=== PATIENT | female | born 1940 | race Caucasian/White ===

== ENCOUNTER 2023-10-02 10:43 | Outpatient (RCR) | payer MEDICARE, SELFPAY ==
[2023-09-04 11:05] VITALS: BP 119/55
[2023-09-04 11:34] VITALS: BP 119/55
[2023-09-04 11:54] VITALS: BP 126/63
[2023-09-04] MEDS: LASIX 20 MG IV (14:12)
[2023-09-04 14:26] VITALS: BP 134/50
[2023-09-08 11:51] LABS: % Basophils 0.2 % (0-2); % Immature Granulocytes 0.5 % (0-0.5); % Lymphocytes 15.5 % (20.5-51.1); % Monocytes 8.2 % (1.7-9.3); % Neutrophils 73.6 % (42.2-75.2); Absolute Eosinophils 0.1 10^3/uL (0-0.7); Absolute Lymphocytes 0.6 10^3/uL (1.2-3.4); Absolute Monocytes 0.3 10^3/uL (0.1-0.6); Hematocrit 27.9 % (37.0-47.0); Hemoglobin 8.4 g/dL (12.0-16.0); Mean Corp Hgb Conc. 30.1 g/dL (33.0-37.0); Mean Corpuscular Hgb 27.1 pg (27.0-31.0); Mean Platelet Volume 10.9 fL (7.4-10.4); Nucleated Red Blood Cells % 0 %; Platelet Count 136 10^3/uL (130-400); Red Cell Dist. Width 17.7 % (11.5-14.5)
[2023-09-18 09:54] VITALS: BP 131/67
[2023-09-18 09:55] VITALS: BP 131/67
[2023-09-18 10:16] VITALS: BP 139/61
[2023-09-18 12:21] VITALS: BP 122/63
[2023-09-18] MEDS: LASIX 20 MG IV (12:28)
[2023-09-25] MEDS: TYLENOL 650 MG PO (10:25)
[2023-09-25 10:27] VITALS: BP 143/65
[2023-09-25 10:57] VITALS: BP 143/65
[2023-09-25 11:14] VITALS: BP 133/77
[2023-09-25 13:54] VITALS: BP 124/72
[2023-09-25] MEDS: LASIX 20 MG IV (13:55)
[2023-10-02 11:31] VITALS: BP 131/56
[2023-10-02 11:49] VITALS: BP 128/56
[2023-10-02 13:45] VITALS: BP 108/53
[2023-10-02] MEDS: LASIX 20 MG IV (13:47)
== END 2023-10-02 23:59 | disposition home or self-care (01) ==
LOC: OID 10:43
PROVIDERS: ATTENDING PHYSICIAN Internal Medicine Hematology & Oncology; FAMILY PHYSICIAN Nurse Practitioner Family
DX: D50.0 Iron deficiency anemia secondary to blood loss (chronic) (principal); D50.9 Iron deficiency anemia, unspecified; Z79.01 Long term (current) use of anticoagulants; T45.4X5A Adverse effect of iron and its compounds, initial encounter; Y93.89 Activity, other specified; K31.811 Angiodysplasia of stomach and duodenum with bleeding; D59.0 Drug-induced autoimmune hemolytic anemia
CPT/HCPCS: 36415; 36430; 85025; 86850; 86900; 86901; 86920; 96374; 96375; P9016

== ENCOUNTER 2023-10-30 09:11 | Outpatient (RCR) | payer MEDICARE, SELFPAY ==
[2023-10-08 09:46] LABS: % Basophils 0.3 % (0-2); % Eosinophils 2.3 % (0-6); % Immature Granulocytes 0.3 % (0-0.5); % Lymphocytes 11.5 % (20.5-51.1); % Monocytes 8.4 % (1.7-9.3); % Neutrophils 77.2 % (42.2-75.2); Absolute Eosinophils 0.1 10^3/uL (0-0.7); Absolute Lymphocytes 0.4 10^3/uL (1.2-3.4); Absolute Monocytes 0.3 10^3/uL (0.1-0.6); Absolute Neutrophils 2.7 10^3/uL (1.4-6.5); Hematocrit 28.8 % (37.0-47.0); Hemoglobin 8.6 g/dL (12.0-16.0); Mean Corp Hgb Conc. 29.9 g/dL (33.0-37.0); Mean Corpuscular Hgb 27.5 pg (27.0-31.0); Mean Platelet Volume 10.2 fL (7.4-10.4); Platelet Count 130 10^3/uL (130-400); Red Blood Cell Count 3.13 10^6/uL (4.20-5.40); Red Cell Dist. Width 16.8 % (11.5-14.5); White Blood Cell Count 3.5 10^3/uL (4.8-10.8)
[2023-10-08 10:42] LABS: Iron 33 ug/dl (37-170)
[2023-10-08 10:51] LABS: Percent Saturation 8 % (20-50); Total Iron Binding Capacity 387 ug/dl (265-497)
[2023-10-08 10:57] LABS: Ferritin 17.2 ng/ml (11.1-264.0)
[2023-10-16 09:30] VITALS: BP 125/49
[2023-10-16 10:12] VITALS: BP 125/49
[2023-10-16 10:28] VITALS: BP 121/50
[2023-10-16 12:32] VITALS: BP 123/49
[2023-10-16] MEDS: LASIX 20 MG IV (12:34)
[2023-10-20 14:16] LABS: % Basophils 0.2 % (0-2); % Eosinophils 1.4 % (0-6); % Immature Granulocytes 0.4 % (0-0.5); % Lymphocytes 15.9 % (20.5-51.1); % Monocytes 8.3 % (1.7-9.3); % Neutrophils 73.8 % (42.2-75.2); Absolute Eosinophils 0.1 10^3/uL (0-0.7); Absolute Lymphocytes 0.8 10^3/uL (1.2-3.4); Absolute Monocytes 0.4 10^3/uL (0.1-0.6); Absolute Neutrophils 3.6 10^3/uL (1.4-6.5); Hematocrit 26.4 % (37.0-47.0); Hemoglobin 7.9 g/dL (12.0-16.0); Mean Corp Hgb Conc. 29.9 g/dL (33.0-37.0); Mean Corpuscular Hgb 26.2 pg (27.0-31.0); Mean Corpuscular Volume 87.7 fL (81.0-99.0); Nucleated Red Blood Cells % 0 %; Platelet Count 125 10^3/uL (130-400); Red Blood Cell Count 3.01 10^6/uL (4.20-5.40); Red Cell Dist. Width 16.9 % (11.5-14.5); White Blood Cell Count 4.9 10^3/uL (4.8-10.8)
[2023-10-30 10:18] VITALS: BP 130/52
[2023-10-30 10:36] VITALS: BP 126/54
[2023-10-30] MEDS: LASIX 20 MG IV (12:29)
[2023-10-30 12:35] VITALS: BP 142/96
== END 2023-10-31 08:38 | disposition home or self-care (01) ==
LOC: OID 09:11
PROVIDERS: ATTENDING PHYSICIAN Internal Medicine Hematology & Oncology; FAMILY PHYSICIAN Nurse Practitioner Family
DX: D50.0 Iron deficiency anemia secondary to blood loss (chronic) (principal); D50.9 Iron deficiency anemia, unspecified; Z79.01 Long term (current) use of anticoagulants; T45.4X5A Adverse effect of iron and its compounds, initial encounter; K31.811 Angiodysplasia of stomach and duodenum with bleeding; Y93.89 Activity, other specified; D59.0 Drug-induced autoimmune hemolytic anemia
CPT/HCPCS: 36415 ×2; 36430; 82728; 83540; 83550; 85025; 86850; 86900; 86901; 86920; 96374; P9016

== ENCOUNTER → 2023-11-03 15:48 | Outpatient (REF) | payer MEDICARE, SELFPAY ==
[2023-11-03 11:25] LABS: % Basophils 0.2 % (0-2); % Eosinophils 0.8 % (0-6); % Immature Granulocytes 0.4 % (0-0.5); % Lymphocytes 14.4 % (20.5-51.1); % Monocytes 10.8 % (1.7-9.3); % Neutrophils 73.4 % (42.2-75.2); Absolute Lymphocytes 0.7 10^3/uL (1.2-3.4); Absolute Monocytes 0.5 10^3/uL (0.1-0.6); Absolute Neutrophils 3.7 10^3/uL (1.4-6.5); Hematocrit 29.9 % (37.0-47.0); Hemoglobin 8.9 g/dL (12.0-16.0); Mean Corp Hgb Conc. 29.8 g/dL (33.0-37.0); Mean Corpuscular Hgb 26.2 pg (27.0-31.0); Mean Corpuscular Volume 87.9 fL (81.0-99.0); Mean Platelet Volume 11.5 fL (7.4-10.4); Nucleated Red Blood Cells % 0 %; Platelet Count 149 10^3/uL (130-400); Red Cell Dist. Width 18.6 % (11.5-14.5)
== END ==
LOC: OIDL 15:48
PROVIDERS: ATTENDING PHYSICIAN Internal Medicine Hematology & Oncology
DX: D50.0 Iron deficiency anemia secondary to blood loss (chronic) (principal)
CPT/HCPCS: 85025

== ENCOUNTER 2023-11-27 09:21 | Outpatient (RCR) | payer MEDICARE, SELFPAY ==
[2023-11-10 12:32] LABS: % Basophils 0.4 % (0-2); % Eosinophils 0.9 % (0-6); % Immature Granulocytes 0.2 % (0-0.5); % Lymphocytes 17.6 % (20.5-51.1); % Monocytes 9.9 % (1.7-9.3); Absolute Lymphocytes 0.8 10^3/uL (1.2-3.4); Absolute Monocytes 0.5 10^3/uL (0.1-0.6); Absolute Neutrophils 3.2 10^3/uL (1.4-6.5); Hematocrit 30.6 % (37.0-47.0); Hemoglobin 9.1 g/dL (12.0-16.0); Mean Corp Hgb Conc. 29.7 g/dL (33.0-37.0); Mean Corpuscular Hgb 27.7 pg (27.0-31.0); Mean Platelet Volume 10.7 fL (7.4-10.4); Nucleated Red Blood Cells % 0 %; Platelet Count 120 10^3/uL (130-400); Red Blood Cell Count 3.29 10^6/uL (4.20-5.40); Red Cell Dist. Width 21.2 % (11.5-14.5); White Blood Cell Count 4.5 10^3/uL (4.8-10.8)
[2023-11-10 12:39] LABS: Phosphorus 2.6 mg/dl (2.5-4.5)
[2023-11-20 10:05] VITALS: BP 115/77
[2023-11-20] MEDS: TYLENOL 650 MG PO (10:39)
[2023-11-20 10:50] VITALS: BP 115/77
[2023-11-20 11:08] VITALS: BP 114/57
[2023-11-20 12:52] VITALS: BP 119/56
[2023-11-20] MEDS: LASIX 20 MG IV (12:56)
[2023-11-27 09:40] VITALS: BP 96/69
[2023-11-27 10:07] VITALS: BP 96/69
[2023-11-27 10:24] VITALS: BP 105/78
--- NOTE | 2023-11-27 12:26 | PTCARENOTE ---
late entry 1024: 15 minute vs taken for blood transfusion, pt vs: 105/78, rr: 18, p: 133, t: 98.3, 100% o2 4l nc (pt on 4l o2 at home); Pt denies any symptoms, no shortness of breath, no chest pain. Apical heart rate was 134 and regular. Pt
otherwise comfortable offering no complaints, sitting up in chair. Heide N.P. in to assess pt per this RN reqest.
TT sent at 1107 by TECHNICAL WRITING LEAD/MGR to [facility] TECHNICAL WRITING LEAD/MGR and MD, with no response.
RR called at 1123, made pt and pt's daughter (via phone) aware. VS: 138/81, 131, 99% o2 4l , 18, denies any complaints.
1130: RR at bedside, pt transported to ER with blood transfusing via wheelchair with staff. BB notified to send pink paper to ER for documentation.
[2023-11-27 12:49] VITALS: BP 122/84
[2023-12-01 09:44] LABS: % Basophils 0.5 % (0-2); % Eosinophils 2.1 % (0-6); % Immature Granulocytes 0.5 % (0-0.5); % Lymphocytes 18.1 % (20.5-51.1); % Monocytes 8.9 % (1.7-9.3); % Neutrophils 69.9 % (42.2-75.2); Absolute Eosinophils 0.1 10^3/uL (0-0.7); Absolute Lymphocytes 0.8 10^3/uL (1.2-3.4); Absolute Monocytes 0.4 10^3/uL (0.1-0.6); Absolute Neutrophils 3.1 10^3/uL (1.4-6.5); Hematocrit 27.5 % (37.0-47.0); Hemoglobin 8.3 g/dL (12.0-16.0); Mean Corp Hgb Conc. 30.2 g/dL (33.0-37.0); Mean Corpuscular Hgb 31.2 pg (27.0-31.0); Mean Corpuscular Volume 103.4 fL (81.0-99.0); Mean Platelet Volume 11.1 fL (7.4-10.4); Nucleated Red Blood Cells % 0 %; Platelet Count 120 10^3/uL (130-400); Red Blood Cell Count 2.66 10^6/uL (4.20-5.40); Red Cell Dist. Width 22.7 % (11.5-14.5); White Blood Cell Count 4.4 10^3/uL (4.8-10.8)
--- NOTE | 2023-12-01 09:50 | EDRN ---
Unit of blood started in the TAR by OID RN. Patient transported to the ED with blood infusing for further monitoring. This RN completed end time and vitals in the TAR as documented on the 'pink' blood bank paper form. No direct care provided.
== END 2023-12-02 23:59 | disposition home or self-care (01) ==
LOC: OID 09:21
PROVIDERS: ATTENDING PHYSICIAN Internal Medicine Hematology & Oncology; FAMILY PHYSICIAN Nurse Practitioner Family
DX: D50.0 Iron deficiency anemia secondary to blood loss (chronic) (principal); D50.9 Iron deficiency anemia, unspecified; Z79.01 Long term (current) use of anticoagulants; T45.4X5A Adverse effect of iron and its compounds, initial encounter; Y93.89 Activity, other specified; Y92.89 Other specified places as the place of occurrence of the external cause; K31.811 Angiodysplasia of stomach and duodenum with bleeding; D59.0 Drug-induced autoimmune hemolytic anemia
CPT/HCPCS: 36415; 36430; 82728; 84100; 85025; 86850; 86900; 86901; 86920; 96374; P9016

== ENCOUNTER 2023-11-27 11:40 | Emergency (ER) | payer MEDICARE, SELFPAY ==
[2023-11-27 11:42] VITALS: BP 136/89; BMI 29.0
--- NOTE | 2023-11-27 11:51 | ED.GENMED ---
History of Present Illness
General
Chief Complaint: Heart Rate Problem
Time Seen by Provider: 11/27/23 11:51
Travel History
Have you had any contact with someone who has COVID-19?: No
Do you have any symptoms of coronavirus? Fever > 100 degrees, chills, cough, shortness of breath, sore throat, loss of taste or smell, muscle aches, or headache?: No
History of Present Illness
History of Present Illness:
HPI: The patient was getting a blood transfusion at the outpatient infusion department at [facility] and a rapid response was called as the patient was becoming tachycardic during blood transfusion. However, the patient had no symptoms and
she feels 'terrific'. She never had any chest pain. She has no shortness of breath. She is in permanent A-fib but not anticoagulated because of weekly blood transfusions. Daughter states she is on chronic oxygen after she had COVID.
EXAM:
GENERAL: Patient appears chronically ill, slightly pale, on nasal cannula oxygen at 4 L/min
HEENT: Moist oral mucosa
CARDIOVASCULAR: No murmurs, normal heart rate, slightly irregular rhythm, No chest wall tenderness
PULMONARY: No respiratory distress, breath sounds are clear and equal
ABDOMEN: Soft with no peritoneal signs, no tenderness
NEUROLOGIC: Excellent strength all extremities, no coordination deficits
PSYCHIATRIC: Appropriate mental status, normal insight and judgement
EXTREMITIES: Nontender, no edema, moves all extremities equally
SKIN: Slightly pale
TIME OF INITIAL ENCOUNTER:
NUMBER AND COMPLEXITY OF PROBLEMS ADDRESSED AT THE ENCOUNTER
� Chronic conditions affecting care: Atrial fibrillation, iron deficiency anemia, von Willebrand's disease
� Acute Exacerbation and/or Progression of Chronic Illness: This is an acute problem
� Differential Diagnosis includes: Rapid atrial fibrillation, dysrhythmia, worsening anemia
AMOUNT AND/OR COMPLEXITY OF DATA TO BE REVIEWED AND ANALYZED
� I performed an independent evaluation of and my interpretation is:
EKG: A-fib 123, lateral ST abnormality, this is similar to EKG from 01/18/2023 but at that time the rate was 102
CT:
X-rays:
Laboratory Studies: White count normal, hemoglobin 8.3 which is near baseline, bicarb 40, BUN 19, creatinine 0.9; troponin and TSH
Other:
� Review of other/old records: I reviewed records, this year, her hemoglobins have ranged from 7.9-9.1; bicarb is chronically elevated
� Clinical information was obtained by an independent historian: I spoke to her caregiver at bedside who states she is normally on 4 L/min of oxygen and I also spoke to her daughter over the phone who states she is in permanent
A-fib not anticoagulated
� Prescriptions/Medications Considered but not given:
� Further testing considered but not performed:
RISK OF COMPLICATIONS AND/OR MORBIDITY OR MORTALITY OF PATIENT MANAGEMENT
� Social determinants of health affecting care: Lives at home and has caregiver
� Discussion with other providers:
� Escalation of care including admission/observation vs risk of discharge considered: I spoke to caregiver and daughter. The patient has no symptoms. Her initial rhythm on the EKG appears to be A-fib and family states that she
is in permanent A-fib. She is not anticoagulated. She may have gone into a more rapid A-fib earlier but currently her rates have been just under 100 as of 12:10 PM. Repeat EKG is slower than the first�suspect junctional rhythm versus A-fib
however the rhythm is rather regular. At 2:20 PM, the patient was reassessed and she is eager to go home. Her heart rate did rise slightly in comparison to earlier however she remains in symptomatic and feels uncomfortable on the stretcher. She
really wants to leave. She is currently asymptomatic. She is already on beta-jhonny.
Past History
Past History
ED Past Medical History: Arrthythmia (Atrial fib), CAD, Cancer (Skin CA), CHF, HTN, Hypercholesterolemia, NIDDM, Hypothyroidism and Other (Anemia, GI bleeding, PNA, UTI, Ulcers)
ED Past Surgical History: Cardiac (Pacemaker, stent), Gynecological (Transabdominal hysterectomy, ovaries left intact) and Other (Stent Right arm)
Social History
Tobacco: Former smoker
Alcohol: None
Drug: None
Personal:
Living: alone
Employment: Retired
Family History
Family History: Negative Diabetes, Hypertension or CAD
Phy Exam
Physical Exam
Physical Exam:
See HPI
Course
Orders/Labs/Results
Orders:
Orders
11/27/23
Electrocardiogram (*1) Stat
Reason for Study: Chest Pain
Comment: DONE
11/27/23 11:45
Electrocardiogram (*1) Urgent
Reason for Study: Tachycardia
11/27/23 11:46
EKG- Treatment ONCE
11/27/23 11:56
Basic Metabolic Panel Urgent
Complete Blood Count/With Diff Urgent
Magnesium Urgent
TSH Reflex To Free T4 Urgent
Troponin I Urgent
Abnormal Lab Results
11/27/23
11:56
RBC 2.71 L 10^6/uL
(4.20-5.40)
Hgb 8.3 L g/dL
(12.0-16.0)
Hct 26.3 L %
(37.0-47.0)
MCHC 31.6 L g/dL
(33.0-37.0)
RDW 23.6 H %
(11.5-14.5)
Plt Count 128 L 10^3/uL
(130-400)
MPV 11.2 H fL
(7.4-10.4)
Absolute Lymphs (auto) 1.0 L 10^3/uL
(1.2-3.4)
Lymphocytes % 18.0 L %
(20.5-51.1)
Chloride 96 L mmol/L
(98-107)
Carbon Dioxide 40 H mmol/L
(22-30)
BUN 19 H mg/dl
(7-17)
Creatinine 0.5 L mg/dL
(0.6-1.0)
Glucose 140 H mg/dl
(70-99)
11/27/23 11:56
11/27/23 11:56
Vital Signs
Initial and Last Documented VS:
Initial Vital Signs
Temp Pulse Resp BP Pulse Ox
98.3 F 123 18 136/89 99
11/27/23 11:42 11/27/23 11:42 11/27/23 11:42 11/27/23 11:42 11/27/23 11:42
Last Documented Vital Signs
Temp Pulse Resp BP Pulse Ox
98.3 F 120 27 146/92 90
11/27/23 11:42 11/27/23 14:15 11/27/23 14:15 11/27/23 14:00 11/27/23 14:15
*Critical Care Note
Total Time (30-74mins, 75-104mins- exclusive of procedures): Not Applicable
ED Attending Note
-
Portions of this chart may have been created with voice recognition software.� Occasional wrong word or��sound alike� substitutions may have occurred due to the inherent limitations of voice recognition software.
Discharge Plan
Departure
Patient Disposition: Home (Routine Discharge)
Date of Disposition: 11/27/23
Time of Disposition: 14:21
Patient with high blood pressure during this ER visit?: Yes
Discharge Problem:
Atrial fibrillation
Instructions: Atrial Fibrillation (DC)
Prescriptions:
No Action
levothyroxine 125 MCG tablet
125 mcg PO DAILY AT 0700
atorvastatin 40 MG tablet
40 mg PO HS
cyanocobalamin (vitamin B-12) 1,000 MCG tablet
1,000 mcg PO DAILY@1200
vitamin E (dl, acetate) 400 UNITS capsule
400 units PO DAILY@1200
ascorbic acid (vitamin C) [Vitamin C] 1,000 mg Tablet
1,000 mg PO DAILY@1200
cholecalciferol (vitamin D3) 2,000 UNITS tablet
2,000 units PO DAILY@1200
furosemide 40 mg tablet
40 mg PO DAILY PRN (Reason: if wgt gain >3lbs/per pint of blood transfusion)
potassium chloride 20 mEq Tablet Extended Release
20 meq PO DAILY@1200
ferrous sulfate
1 dose IV MONTHLY
furosemide 40 mg tablet
40 mg PO BID@0800,1600
pantoprazole 40 mg Tablet,Delayed Release (Dr/Ec)
40 mg PO BID 30 Days Qty: 60 0RF
carvedilol 3.125 mg Tablet
3.125 mg PO BID
sucralfate 1 gram tablet
1 g PO DAILY
Patient Comments:
TAKES AFTER LUNCH
sennosides-docusate sodium [Senna Plus] 8.6-50 mg tablet
1 tab PO BID PRN (Reason: CONSTIPATION)
Referrals:
Akira Castro CRNP [Family Provider] -
Activity Restrictions/Additional Instructions:
Your heart rate has been borderline elevated here. Your hemoglobin currently is 8.3, thyroid testing was obtained which shows that it is in the range, other electrolytes were normal including potassium and magnesium. Cardiac blood work came back
normal. Return here if worse. Continue your medications.
Interventions
Interventions:
*Risk Screen - Suicide Last Done: 11/27/23 11:42
*General Assessment Last Done: 11/27/23 11:42
*Neglect/Abuse Screening Last Done: 11/27/23 11:42
ED- Fall Risk Assessment Last Done: 11/27/23 11:51
*ED COVID-19 Vaccine History Last Done: 11/27/23 11:42
ED- Cardiac Assessment Last Done: 11/27/23 11:42
ED- Pulmonary Assessment Last Done: 11/27/23 11:42
Discharge Date and Time
Print Language: KYRGYZ
[2023-11-27 12:00] VITALS: BP 122/84
[2023-11-27 12:25] LABS: % Basophils 0.6 % (0-2); % Eosinophils 0.8 % (0-6); % Immature Granulocytes 0.4 % (0-0.5); % Monocytes 7.3 % (1.7-9.3); % Neutrophils 72.9 % (42.2-75.2); Absolute Monocytes 0.4 10^3/uL (0.1-0.6); Absolute Neutrophils 3.9 10^3/uL (1.4-6.5); Hematocrit 26.3 % (37.0-47.0); Hemoglobin 8.3 g/dL (12.0-16.0); Mean Corp Hgb Conc. 31.6 g/dL (33.0-37.0); Mean Corpuscular Hgb 30.6 pg (27.0-31.0); Mean Platelet Volume 11.2 fL (7.4-10.4); Nucleated Red Blood Cells % 0 %; Platelet Count 128 10^3/uL (130-400); Red Blood Cell Count 2.71 10^6/uL (4.20-5.40); Red Cell Dist. Width 23.6 % (11.5-14.5); White Blood Cell Count 5.3 10^3/uL (4.8-10.8)
[2023-11-27 12:35] LABS: Blood Urea Nitrogen 19 mg/dl (7-17); Calcium 8.4 mg/dl (8.4-10.2); Carbon Dioxide 40 mmol/L (22-30); Chloride 96 mmol/L (98-107); Estimated Creatinine Clearance 64 ml/min; Glucose 140 mg/dl (70-99); Sodium 136 mmol/L (135-145); eGFR > 60.00
[2023-11-27 12:45] LABS: Troponin I 0.025 ng/ml
[2023-11-27 12:51] LABS: Anisocytosis 1+; Normal RBC Morphology No
[2023-11-27 12:52] LABS: Hypochromasia 1+; Macrocytosis Few; Polychromasia Slight
[2023-11-27 13:00] VITALS: BP 134/88
[2023-11-27 13:06] LABS: TSH Reflex To Free T4 4.43 uIU/ml (0.47-4.68)
[2023-11-27 13:54] VITALS: BP 137/79
[2023-11-27 14:00] VITALS: BP 146/92
== END 2023-11-27 14:36 | disposition home or self-care (01) ==
LOC: EMR 11:40
PROVIDERS: EMERGENCY PHYSICIAN Emergency Medicine; FAMILY PHYSICIAN Nurse Practitioner Family
DX: I48.91 Unspecified atrial fibrillation (principal); D50.9 Iron deficiency anemia, unspecified; D68.00 Von Willebrand disease, unspecified; E03.9 Hypothyroidism, unspecified; E11.9 Type 2 diabetes mellitus without complications; E78.00 Pure hypercholesterolemia, unspecified; I11.0 Hypertensive heart disease with heart failure; I50.9 Heart failure, unspecified; I25.10 Atherosclerotic heart disease of native coronary artery without angina pectoris; Z85.828 Personal history of other malignant neoplasm of skin; Z87.440 Personal history of urinary (tract) infections; Z87.891 Personal history of nicotine dependence; Z90.710 Acquired absence of both cervix and uterus; Z95.0 Presence of cardiac pacemaker; Z95.5 Presence of coronary angioplasty implant and graft
CPT/HCPCS: 99283; 80048; 83735; 84443; 84484; 85025; 93005

== ENCOUNTER 2023-12-11 09:24 | Outpatient (RCR) | payer MEDICARE, SELFPAY ==
[2023-12-11 09:35] VITALS: BP 112/59
[2023-12-11 10:00] VITALS: BP 112/59
[2023-12-11 10:18] VITALS: BP 107/45
[2023-12-11 12:31] VITALS: BP 116/45
[2023-12-11] MEDS: LASIX 20 MG IV (12:37)
[2023-12-15 10:32] LABS: % Basophils 0.3 % (0-2); % Eosinophils 1.6 % (0-6); % Immature Granulocytes 0.3 % (0-0.5); % Lymphocytes 9.7 % (20.5-51.1); % Neutrophils 81.1 % (42.2-75.2); Absolute Eosinophils 0.1 10^3/uL (0-0.7); Absolute Lymphocytes 0.4 10^3/uL (1.2-3.4); Absolute Monocytes 0.3 10^3/uL (0.1-0.6); Hematocrit 28.9 % (37.0-47.0); Hemoglobin 8.7 g/dL (12.0-16.0); Mean Corp Hgb Conc. 30.1 g/dL (33.0-37.0); Mean Corpuscular Hgb 31.9 pg (27.0-31.0); Mean Corpuscular Volume 105.9 fL (81.0-99.0); Mean Platelet Volume 10.8 fL (7.4-10.4); Nucleated Red Blood Cells % 0 %; Platelet Count 142 10^3/uL (130-400); Red Blood Cell Count 2.73 10^6/uL (4.20-5.40); Red Cell Dist. Width 18.6 % (11.5-14.5); White Blood Cell Count 3.7 10^3/uL (4.8-10.8)
== END 2024-01-02 23:59 | disposition home or self-care (01) ==
LOC: OID 09:24
PROVIDERS: ATTENDING PHYSICIAN Internal Medicine Hematology & Oncology; FAMILY PHYSICIAN Nurse Practitioner Family
DX: D50.0 Iron deficiency anemia secondary to blood loss (chronic) (principal); D50.9 Iron deficiency anemia, unspecified; Z79.01 Long term (current) use of anticoagulants; T45.4X5A Adverse effect of iron and its compounds, initial encounter; Y92.89 Other specified places as the place of occurrence of the external cause; Y93.89 Activity, other specified; K31.811 Angiodysplasia of stomach and duodenum with bleeding; D59.0 Drug-induced autoimmune hemolytic anemia
CPT/HCPCS: 36415; 36430; 85025; 86850; 86900; 86901; 86920; 96374; P9016

== ENCOUNTER 2024-01-29 09:32 | Outpatient (RCR) | payer MEDICARE, SELFPAY ==
[2024-01-12 11:12] LABS: % Basophils 0.4 % (0-2); % Eosinophils 1.6 % (0-6); % Immature Granulocytes 0.4 % (0-0.5); % Lymphocytes 15.7 % (20.5-51.1); % Monocytes 8.7 % (1.7-9.3); % Neutrophils 73.2 % (42.2-75.2); Absolute Eosinophils 0.1 10^3/uL (0-0.7); Absolute Lymphocytes 0.7 10^3/uL (1.2-3.4); Absolute Monocytes 0.4 10^3/uL (0.1-0.6); Absolute Neutrophils 3.3 10^3/uL (1.4-6.5); Hematocrit 25.6 % (37.0-47.0); Hemoglobin 7.8 g/dL (12.0-16.0); Mean Corp Hgb Conc. 30.5 g/dL (33.0-37.0); Mean Corpuscular Hgb 30.1 pg (27.0-31.0); Mean Corpuscular Volume 98.8 fL (81.0-99.0); Mean Platelet Volume 11.2 fL (7.4-10.4); Nucleated Red Blood Cells % 0 %; Platelet Count 133 10^3/uL (130-400); Red Blood Cell Count 2.59 10^6/uL (4.20-5.40); Red Cell Dist. Width 15.8 % (11.5-14.5); White Blood Cell Count 4.5 10^3/uL (4.8-10.8)
[2024-01-15 09:30] VITALS: BP 117/67
[2024-01-15 10:28] VITALS: BP 117/67
[2024-01-15 10:45] VITALS: BP 119/64
[2024-01-15 13:54] VITALS: BP 137/84
[2024-01-15] MEDS: LASIX 20 MG IV (14:01)
[2024-01-22 09:25] VITALS: BP 122/62
[2024-01-22 10:01] VITALS: BP 122/62
[2024-01-22 10:18] VITALS: BP 103/47
[2024-01-22 12:06] VITALS: BP 139/84
[2024-01-22] MEDS: LASIX 20 MG IV (12:06)
[2024-01-29 10:36] VITALS: BP 126/68
[2024-01-29 10:55] VITALS: BP 134/76
--- NOTE | 2024-01-29 12:25 | PTCARENOTE ---
Pt in today for a transfusion of one unit of packed red blood cells. 2 hours into the blood transfusion patient started complaining about being very cold. Temperature was 97.4, She started having chills and was shaking. Her lips were bluish, O2
saturation was fluctuating between 88-92% on 4l of O2 via nasal canula. Pt heart rate was elevated to 112-120 bpm and respirations were between 28-30. Rapid response was called and blood stopped at 12:25 Pt did receive 171ml of the transfusion.
Dr. Atkinson and Mitzi David were notified and responded via tiger text. 1230pm patient was on stretcher and taken to the ER. Blood unit and tubing were sent to the blood bank. Blood reaction form started and given to the ED nurse.
== END 2024-02-01 23:59 | disposition home or self-care (01) ==
LOC: OID 09:32
PROVIDERS: ATTENDING PHYSICIAN Internal Medicine Hematology & Oncology; FAMILY PHYSICIAN Nurse Practitioner Family
DX: D50.0 Iron deficiency anemia secondary to blood loss (chronic) (principal); D50.9 Iron deficiency anemia, unspecified; T45.4X5A Adverse effect of iron and its compounds, initial encounter; Z79.01 Long term (current) use of anticoagulants; Y93.89 Activity, other specified; Y92.89 Other specified places as the place of occurrence of the external cause; K31.811 Angiodysplasia of stomach and duodenum with bleeding; D59.0 Drug-induced autoimmune hemolytic anemia
CPT/HCPCS: 36415; 36430; 85025; 86850; 86900; 86901; 86920; 96374; P9016

== ENCOUNTER 2024-01-29 16:58 | Inpatient (IN) | payer MEDICARE, SELFPAY ==
[2024-01-29] VITALS (16 sets, daily range): BP systolic 100–160; BP diastolic 48–117; BMI 32.4
[2024-01-29 12:44] LABS: Glucose - Point of Care 147 mg/dl (70-99)
[2024-01-29 13:11] LABS: % Eosinophils 0.5 % (0-6); % Immature Granulocytes 0.5 % (0-0.5); % Lymphocytes 7.8 % (20.5-51.1); % Neutrophils 90.2 % (42.2-75.2); Absolute Lymphocytes 0.3 10^3/uL (1.2-3.4); Absolute Neutrophils 3.5 10^3/uL (1.4-6.5); Hematocrit 25.8 % (37.0-47.0); Hemoglobin 7.9 g/dL (12.0-16.0); Mean Corp Hgb Conc. 30.6 g/dL (33.0-37.0); Mean Corpuscular Volume 94.9 fL (81.0-99.0); Mean Platelet Volume 10.9 fL (7.4-10.4); Nucleated Red Blood Cells % 0 %; Platelet Count 143 10^3/uL (130-400); Red Blood Cell Count 2.72 10^6/uL (4.20-5.40); Red Cell Dist. Width 17.2 % (11.5-14.5); White Blood Cell Count 3.9 10^3/uL (4.8-10.8)
[2024-01-29] MEDS: ZOFRAN 4 MG IV (13:22)
[2024-01-29 13:25] LABS: ALT (SGPT) 14 U/L (0-35); AST (SGOT) 27 U/L (14-36); Albumin 3.8 g/dl (3.5-5.0); Alkaline Phosphatase 81 U/L (38-126); Blood Urea Nitrogen 21 mg/dl (7-17); Calcium 8.7 mg/dl (8.4-10.2); Chloride 91 mmol/L (98-107); Glucose 134 mg/dl (70-99); Potassium 4.3 mmol/L (3.5-5.1); Sodium 139 mmol/L (135-145); Total Protein 7.3 g/dl (6.3-8.2); eGFR > 60.00
[2024-01-29 13:27] LABS: NT-proBNP 2560 pg/ml
[2024-01-29] MEDS: BENADRYL 12.5 MG IV (13:32)
[2024-01-29] MEDS: DECADRON 6 MG IV (13:32)
--- NOTE | 2024-01-29 13:33 | ED.GENMED ---
History of Present Illness
General
Chief Complaint: Weakness
Source: patient and family
Exam Limitations: none
Time Seen by Provider: 01/29/24 13:16
Nursing documentation reviewed up to this point in time: agreed with
History of Present Illness
History of Present Illness:
Patient with history of chronic iron deficiency anemia, who has required weekly infusion of red blood cells recently, presents to ED from outpatient infusion center secondary to sudden onset of shortness of breath with hypoxia, noted during blood
transfusion. Patient was found to be pale with mental status change, with significant hypoxia. Patient was placed on 100% nonrebreather and transferred to ED for evaluation. Per daughter at bedside, patient has similar episode 2 weeks ago during
infusion, requiring treatment in ED prior to being discharged home. Patient herself, upon arrival to ED, is only complaining of nausea sensation. Denies chest pain. Denies fever. Patient was at her normal baseline health this morning, when she
was brought to infusion center. Patient at baseline uses 4 L of oxygen via nasal cannula.
Past History
Past History
ED Past Medical History: Arrthythmia (Atrial fib), CAD, Cancer (Skin CA), CHF, HTN, Hypercholesterolemia, NIDDM, Hypothyroidism and Other (Anemia, GI bleeding, PNA, UTI, Ulcers)
ED Past Surgical History: Cardiac (Pacemaker, stent), Gynecological (Transabdominal hysterectomy, ovaries left intact) and Other (Stent Right arm)
Social History
Tobacco: Former smoker
Alcohol: None
Drug: None
Personal:
Living: alone
Employment: Retired
Family History
Family History: Negative Diabetes, Hypertension or CAD
Review of Systems
Review of Systems
Allergies reviewed?: Yes
All Other Systems: ROS reviewed and negative except as documented in HPI and ROS
Constitutional: Reports no symptoms
EENT: Reports no symptoms
Respiratory: Reports trouble breathing
Cardiac: Reports no symptoms
ABD/GI: Reports nausea; Denies abdominal pain or vomiting
: Reports no symptoms
Musculoskeletal: Reports no symptoms
Skin: Reports no symptoms
Neurological: Reports no symptoms
Phy Exam
Physical Exam
Physical Exam:
Physical Exam
General: moderate respiratory distress, chronically ill appearing. afebrile. hypoxic
Head: nc/at. eomi
Neck: supple. no meningeal signs.
Heart: tachycardic, no murmur. equal radial pulses.
Lungs: moderate respiratory distress. crackles bilaterally
Abdomen: normal bowel sounds. not tender. mild distention noted.
Neuro: alert and oriented. no focal neurological deficits
Skin: no rash
Psychiatric: well kept. interactive and cooperative
Extremities: LE b/l edema. no calf tenderness.
Course
Orders/Labs/Results
Orders:
Orders
01/29/24 12:42
Portable Chest Xray [CR Chest Portable - 1 View] Urgent
Comment:
Reason For Exam: sob
Reason Study Needs to be Portable: Unable to Transport
01/29/24 12:48
EKG [Electrocardiogram (*1)] Urgent
Reason for Study: Shortness of Breath
01/29/24 12:49
EKG- Treatment ONCE
01/29/24 12:56
Comprehensive Metabolic Panel Urgent
Magnesium Urgent
Comment: ADD ON
01/29/24 12:57
Transfusion Reaction Urgent
BBK Wristband Number:
Complete Blood Count/With Diff Urgent
NT-proBNP Urgent
01/29/24 13:14
Ondansetron Injectable [Zofran] 4 mg .ROUTE .STK-MED ONE
01/29/24 13:20
Ondansetron Injectable [Zofran] 4 mg IV NOW STA
01/29/24 13:23
Add On- LAB Urgent
Tests Added?: mag
01/29/24 13:24
Dexamethasone Sod Phosphate [Decadron] 6 mg IV NOW STA
Diphenhydramine [Benadryl] 12.5 mg IV NOW STA
01/29/24 13:25
O2 Therapy [RESP] Urgent
Titrate/Wean O2 to maintain O2 sat greater than (%): 90
01/29/24 13:32
Furosemide [Lasix] 20 mg IV NOW STA
01/29/24 Dinner
Clear Liquid
At Your Request: Full Participation
01/29/24 16:46
Admit/Transfer Patient As Directed
Co-Sign Provider:
Level of Care: Inpatient admission
Assign to:: IMU- Intermediate Care
Physician / Group: [email or web address]
Diagnosis: transfusion related lung injury
Reason for Hospitalization: transfusion related lung injury
Expected length of stay greater than two midnights?: Yes
ELOS- Estimated Length of Stay in days: 2
I certify the patient meets the requirements for IP care: Yes
01/29/24 16:47
Code Status As Directed
Resuscitation Status: Limited DNR
Limited DNR: -No intubation
01/29/24 16:48
Furosemide [Lasix] 40 mg IV NOW STA
01/29/24 16:50
5Hr. Total Bilirubin Urgent
Urinalysis Urgent
Urine Microscopic Urgent
01/29/24 18:36
Bisacodyl [Dulcolax] 5 mg PO HSPRN PRN
01/29/24 18:36
Activity As Directed
Activity Level: As Tolerated
Intake/ Output As Directed
Frequency: q12h
Pneumatic Compression Sleeves As Directed
Type: Knee high
Vital Signs As Directed
Frequency: Other
Additional Instructions:: Q12 or per unit guidelines if more frequent.
Weight As Directed
Frequency: Daily
Type of Scale: Standing Scale
Comment: Daily morning weight. If unable to stand, use balanced bed scale.
Weight As Directed
Frequency: Once
Type of Scale: Standing Scale
Comment: Upon Admission. If unable to stand, use balanced bed scale.
Pulse Ox/cont/shift [RESP] Routine
Quantity: 1
Special Instructions: Daily pulse oximetry at rest. If greater than 92% at rest also obtain pulse oximetry
while ambulating as tolerated.
DX Deep Vein Thrombosis Video Routine
01/29/24 19:07
Guaifenesin [Mucinex] 600 mg PO [id number] PRN
01/29/24 20:00
Carvedilol [Coreg] 3.125 mg PO BID
01/29/24 22:00
Atorvastatin [Lipitor] 40 mg PO HS
01/30/24 06:00
Complete Blood Count/With Diff IN AM
Comprehensive Metabolic Panel IN AM
Levothyroxine [Synthroid] 125 mcg PO [id number]@0600
01/30/24 08:00
Furosemide [Lasix] 40 mg IV BID AT 0800,1600
Pantoprazole [Protonix] 40 mg PO DAILY
01/30/24 12:00
Ascorbic Acid [Vitamin C] 1,000 mg PO NOON
Cholecalciferol (Vitamin D3) [VITAMIN D3 (cholecalciferol)] 50 mcg PO NOON
Cyanocobalamin [Vitamin B-12] 1,000 mcg PO NOON
Potassium Chloride [KCl] 20 meq PO NOON
Vitamin E 400 units PO NOON
Abnormal Lab Results
01/29/24 01/29/24 01/29/24
12:42 12:56 12:57
WBC 3.9 L 10^3/uL
(4.8-10.8)
RBC 2.72 L 10^6/uL
(4.20-5.40)
Hgb 7.9 L g/dL
(12.0-16.0)
Hct 25.8 L %
(37.0-47.0)
MCHC 30.6 L g/dL
(33.0-37.0)
RDW 17.2 H %
(11.5-14.5)
MPV 10.9 H fL
(7.4-10.4)
Absolute Lymphs (auto) 0.3 L 10^3/uL
(1.2-3.4)
Absolute Monos (auto) 0.0 L 10^3/uL
(0.1-0.6)
Neutrophils % 90.2 H %
(42.2-75.2)
Lymphocytes % 7.8 L %
(20.5-51.1)
Monocytes % 1.0 L %
(1.7-9.3)
Chloride 91 L mmol/L
(98-107)
Carbon Dioxide 41 H mmol/L
(22-30)
BUN 21 H mg/dl
(7-17)
Glucose 134 H mg/dl
(70-99)
Total Bilirubin 2.0 H mg/dl
(0.2-1.3)
Post-Trans Total Bili
Urine Nitrite
Ur Leukocyte Esterase
Urine WBC
Urine Bacteria
POC Glucose 147 H mg/dl
(70-99)
01/29/24
16:50
WBC
RBC
Hgb
Hct
MCHC
RDW
MPV
Absolute Lymphs (auto)
Absolute Monos (auto)
Neutrophils %
Lymphocytes %
Monocytes %
Chloride
Carbon Dioxide
BUN
Glucose
Total Bilirubin
Post-Trans Total Bili 2.7 H mg/dl
(0.2-1.3)
Urine Nitrite Positive A
(Negative)
Ur Leukocyte Esterase 1+ A
(Negative)
Urine WBC 11-15 A /HPF
(0-5)
Urine Bacteria Moderate A
(Negative)
POC Glucose
01/29/24 12:57
01/29/24 12:56
Vital Signs
Initial and Last Documented VS:
Initial Vital Signs
Temp Pulse Resp Pulse Ox
98.1 F 109 33 64
01/29/24 12:37 01/29/24 12:37 01/29/24 12:37 01/29/24 12:37
Last Documented Vital Signs
Temp Pulse Resp BP Pulse Ox
98.8 F 104 25 110/60 94
01/29/24 18:50 01/29/24 19:30 01/29/24 19:30 01/29/24 19:00 01/29/24 19:30
MDM/Problems Addressed
MDM/Problems Addressed:
Patient immediately evaluated upon arrival, secondary to significant hypoxia. Patient placed on mid flow oxygen with improvement in symptoms. Patient also given Benadryl and Decadron after initial evaluation, along with 20 mg of Lasix IV. Patient
with likely potential for acute reaction during blood transfusion. Patient will be admitted for further evaluation and treatment.
Received phone call from pathology regarding elevated bilirubin level post transfusion reaction, with possible hemolytic anemia. Forwarded information to admitting hospitalist, .
*Critical Care Note
Total Time (30-74mins, 75-104mins- exclusive of procedures): Not Applicable
ED Attending Note
-
Portions of this chart may have been created with voice recognition software.� Occasional wrong word or��sound alike� substitutions may have occurred due to the inherent limitations of voice recognition software.
Discharge Plan
Departure
Patient Disposition: Admit
Date of Disposition: 01/29/24
Time of Disposition: 15:21
Admit to: Telemetry
Presentation/result/management discussed w/ accepting MD/DO: Hospitalist
Discharge Problem:
Hypoxia, Transfusion reaction
Interventions
Interventions:
*Risk Screen - Suicide Last Done: 01/29/24 12:37
*General Assessment Last Done: 01/29/24 12:37
*Neglect/Abuse Screening Last Done: 01/29/24 12:37
*ED COVID-19 Vaccine History Last Done: 01/29/24 12:37
*Nursing Disposition Last Done: 01/29/24 18:47
ED- Cardiac Assessment Last Done: 01/29/24 12:45
ED- Neurological Assessment Last Done: 01/29/24 12:45
ED- Pulmonary Assessment Last Done: 01/29/24 12:45
Discharge Date and Time
Discharge Date/Time: 01/29/24 18:47
[2024-01-29] MEDS: LASIX 20 MG IV (13:37)
[2024-01-29 13:56] LABS: Carbon Dioxide 41 mmol/L (22-30)
[2024-01-29 14:36] LABS: Magnesium 1.8 mg/dl (1.6-2.3)
--- NOTE | 2024-01-29 16:51 | HPS.HSE ---
Addendum entered and electronically signed by Garfield Taylor MD 01/29/24 18:56:
Total bilirubin had increased from 2 to 2.7 posttransfusion which could indicate hemolytic anemia. Will check reticulocyte count, haptoglobin, LDH.
Original Note:
Family Physician
-
Family Physician: SHEKHAR Devlin
Chief Complaint
-
transfusion reaction
History of Present Illness
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
pacemaker, coronary artery disease status post stent in 2019, HFmrEF, chronic hypoxemic respiratory failure unclear etiology on 4 L baseline, hypertension, hypothyroidism, hyperlipidemia, melanoma, ambulatory dysfunction presenting for paleness,
blue lips, mental status change and significant hypoxia during blood transfusion today. Patient receives weekly infusion of red blood cells and iron for iron deficiency anemia. She receives blood every week and iron every month. Today patient was
placed on 100% nonrebreather and transferred to the emergency room. Patient has similar episode 2 weeks ago during infusion for which she came to the emergency room and was discharged. Patient complaining of nausea without vomiting. No chest
pain. No fever. Patient was in normal state of health this morning.
As per daughter patient has been having a lot more abdominal distention and lower extremity edema. She has gained 25 pounds since last year. She is on Lasix 40 twice a day which has been unchanged recently. Patient has also been having black
stools on a regular basis daughter thinks that patient is losing a lot of blood on a regular basis.
She is a former smoker. Denies alcohol.
Medical History
Past Medical History
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
coronary artery disease status post stent in 2019, HFmrEF, chronic hypoxemic respiratory f)
Past Surgical History: Reports Other (Cardiac (Pacemaker, stent), Gynecological (Transabdominal hysterectomy, ovaries left intact) and Other (Stent Right arm))
Social History
Tobacco: Former Smoker
Alcohol: None
Drug: None
Family History
Family History: Not pertinent
Allergies / Home Medications
Allergies reflects when Allergies were last updated in [facility].
Home Medications with original date entered in [facility]
Allergy/Medication List:
Allergies
Allergy/AdvReac Type Severity Reaction Status Date / Time
enalapril maleate Allergy ANGIOEDEMA Verified 01/29/24 13:39
[From Vasotec]
Iodinated Contrast Media Allergy RASH,'COULDNT Verified 01/29/24 13:39
[IV Dye, Iodine Containing] BREATHE'
Home Medications
levothyroxine 125 mcg tablet 125 mcg PO MOTUWETHFRSA@0800 Thyroid 09/14/18
atorvastatin 40 mg tablet 40 mg PO HS High cholesterol 08/15/20
cyanocobalamin (vitamin B-12) 1,000 mcg tablet 1,000 mcg PO NOON Supplement 08/15/20
ascorbic acid (vitamin C) 1,000 mg tablet (Vitamin C) 1,000 mg PO NOON Supplement 12/02/22
furosemide 40 mg tablet 80 mg PO QMONTH 12/05/22
furosemide 40 mg tablet 40 mg PO BID Fluid retention/Swelling 04/10/23
carvedilol 3.125 mg tablet 3.125 mg PO BID 05/08/23
bisacodyl 5 mg tablet,delayed release (Dulcolax (bisacodyl)) 5 mg PO HS PRN constipation 01/29/24
cholecalciferol (vitamin D3) 50 mcg (2,000 unit) tablet 50 mcg PO NOON 01/29/24
diphenhydramine 25 mg-acetaminophen 500 mg tablet (Tylenol PM Extra Strength) 1 tab PO HSPRN PRN sleep 01/29/24
guaifenesin 1,200 mg tablet, extended release 12 hr (Mucinex) 600 mg PO [id number] PRN mucus 01/29/24
iron sucrose 200 mg iron/10 mL intravenous solution (Venofer) 200 mg IV QMONTH 01/29/24
pantoprazole 40 mg tablet,delayed release 40 mg PO DAILY 01/29/24
potassium chloride 20 mEq tablet,extended release(part/cryst) 20 meq PO NOON 01/29/24
vitamin E (dl, acetate) 180 mg (400 unit) capsule 180 mg PO NOON 01/29/24
Review of Systems
-
History Source: Patient
A 12 point ROS was completed and negative except as noted: Yes
Constitutional: Reports No Symptoms
EENT: Reports No Symptoms
Respiratory: Reports See HPI
Cardiac: Reports See HPI
Abdomen/GI: Reports See HPI
: Reports No Symptoms
Musculoskeletal: Reports No Symptoms
Skin: Reports No Symptoms
Neurological: Reports No Symptoms
Endocrine: Reports No Symptoms
Hematologic/Lymphatic: Reports No Symptoms
Psych: Reports No Symptoms
Physical Exam
Vital Signs
Vital Signs
Temp Pulse Resp BP Pulse Ox
99.7 F 118 30 143/75 98
01/29/24 15:30 01/29/24 14:30 01/29/24 14:30 01/29/24 14:30 01/29/24 14:30
Physical Exam
General: Well Developed, Well Nourished and No Apparent Distress
HEENT: NormoCephalic, Moist mucous membranes and Atraumatic
Respiratory: Clear
Cardiac: S1/S2, Regular Rhythm and Peripheral Edema; No Murmur or Rub
GI: Soft, Non Tender, Normal Bowel Sounds and Distended; No Organomegaly
Rectal: Deferred by Provider
Musculoskeletal: No Clubbing, No Cyanosis and No Edema
Skin: No Rash
Neuro: Nonfocal/grossly intact
Laboratory Results
-
01/29/24 12:57
06/27/24 12:56
Laboratory Results
Total Bilirubin 2.0 mg/dl (0.2-1.3) H 01/29/24 12:56
AST 27 U/L (14-36) 01/29/24 12:56
ALT 14 U/L (0-35) 01/29/24 12:56
Alkaline Phosphatase 81 U/L (38-126) 01/29/24 12:56
Data Reviewed
-
Lab Data: Labs Reviewed by me
Old Records: Reviewed
Impression/Plan
-
IMPRESSION:
PLAN:
# Acute on chronic hypoxemic respiratory failure secondary to recurrent transfusion related acute lung injury/volume overload from underlying HFmrEF
#Chronic hypoxemic respiratory failure on 4 L baseline, unclear etiology
-Chest x-ray shows moderate diffuse coarsening of the bronchovascular markings throughout the lungs suggestive of diffuse bilateral pulmonary interstitial inflammatory disease rather than pulmonary edema
-Cardiac BNP of 2560 from 1959
-Patient on 10 L mid flow
-Dexamethasone, Benadryl, Zofran, 20 IV Lasix given
-Check I's and O's, daily weights
-Increase Lasix to 40 twice daily IV
-Will need to address goals of care with hematology and whether to stop further transfusions
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
-Ongoing black stool
-Hemoglobin stable at 7.9
-Recent EGD from April 2023 showed GAVE status post APC
-Continue Protonix
-Clear liquid diet
-Consult GI to see if any role of repeat EGD
Von Willebrand's disease
Type 2 diabetes
-Not on treatment
Diabetic neuropathy
Permanent atrial fibrillation
-Not on anticoagulation
Permanent pacemaker
Coronary artery disease status post stenting 2019
Chronic HFmrEF
-Continue Coreg
Essential hypertension
Hypothyroidism
-Continue levothyroxine
Hyperlipidemia
-Continue statin
Melanoma
Chronic ambulatory dysfunction
DO NOT INTUBATE
DVT prophylaxis�SCDs
Clear liquids
[2024-01-29] MEDS: LASIX 40 MG IV (16:57)
[2024-01-29 17:12] LABS: 5Hr. Total Bilirubin 2.7 mg/dl (0.2-1.3)
--- NOTE | 2024-01-29 18:45 | PTCARENOTE ---
Patient received from the ER. Patient pulled over to room bed. JUNE QUAN. Bed side assessment done. Oriented to room. Call brower in reach.
[2024-01-29] MEDS: COREG 3.125 MG PO (20:16)
[2024-01-29] MEDS: LIPITOR 40 MG PO (20:17)
[2024-01-29 20:23] LABS: Reticulocyte Count 3.6 % (0.4-2.8)
[2024-01-29 20:39] LABS: LDH 274 U/L (120-246)
[2024-01-30] VITALS (11 sets, daily range): BP systolic 96–113; BP diastolic 51–75; PULSE 107; O2SAT 95; BMI 32.3
--- NOTE | 2024-01-30 03:32 | PTCARENOTE ---
Admission questions complete. Tele showing Afib. Pt able to swallow pills whole with water, no s/s of aspiration. Pt with stage one to sacrum; pressure off-loaded and barrier cream applied. 02 decreased to 6L Sp02 90-99%. Purewick placed, incont
B/B. Pt states she has caregivers that come multiple times a day to help her at home. Pt denies nausea, but endorses some belching. Refused SCDs. Bilateral LE edema R>L; pt reports this is chronic. Education provided button sewing machine operator brower use. Bed alarm set
for safety. Call brower left within reach.
[2024-01-30] MEDS: SYNTHROID 125 MCG PO (05:28)
[2024-01-30 06:21] LABS: % Basophils 0.1 % (0-2); % Immature Granulocytes 0.4 % (0-0.5); % Lymphocytes 3.9 % (20.5-51.1); % Monocytes 3.5 % (1.7-9.3); % Neutrophils 92.1 % (42.2-75.2); Absolute Lymphocytes 0.4 10^3/uL (1.2-3.4); Absolute Monocytes 0.4 10^3/uL (0.1-0.6); Absolute Neutrophils 10.4 10^3/uL (1.4-6.5); Hematocrit 24.5 % (37.0-47.0); Hemoglobin 7.4 g/dL (12.0-16.0); Mean Corp Hgb Conc. 30.2 g/dL (33.0-37.0); Mean Corpuscular Hgb 28.7 pg (27.0-31.0); Nucleated Red Blood Cells % 0 %; Platelet Count 143 10^3/uL (130-400); Red Blood Cell Count 2.58 10^6/uL (4.20-5.40); Red Cell Dist. Width 17.1 % (11.5-14.5); White Blood Cell Count 11.3 10^3/uL (4.8-10.8)
[2024-01-30 06:43] LABS: ALT (SGPT) 11 U/L (0-35); AST (SGOT) 25 U/L (14-36); Albumin 3.2 g/dl (3.5-5.0); Alkaline Phosphatase 74 U/L (38-126); Blood Urea Nitrogen 25 mg/dl (7-17); Calcium 8.2 mg/dl (8.4-10.2); Carbon Dioxide 39 mmol/L (22-30); Chloride 92 mmol/L (98-107); Estimated Creatinine Clearance 48 ml/min; Glucose 136 mg/dl (70-99); Potassium 4.2 mmol/L (3.5-5.1); Sodium 137 mmol/L (135-145); Total Protein 6.1 g/dl (6.3-8.2); eGFR > 60.00
--- NOTE | 2024-01-30 08:44 | W.PN.HOSP.TC ---
Today's Communication/Plan
-
Echocardiogram
Advance diet
Pulmonary consult
Hematology consult
Assessment / Plan
Assessment / Plan
Gen-AAOx3, NAD
HEENT-NC, AT, anicteric, clear oral mm
Neck-supple
CV-reg, no M, +S1/S2
Lungs-faint Rales bilaterally
Abd-soft, NT, ND
Ext-bilateral lower extremity edema, right greater than left
Musculoskeletal-no cyanosis, clubbing
Skin-warm and dry
Neuro-grossly non-focal
Psych-calm, cooperative
Acute on chronic hypoxic respiratory failure -differential diagnosis includes TRALI versus acute pulmonary edema versus other. Required 10 L of oxygen last night, improved now to 5 L. Baseline uses 4 L nasal cannula oxygen at home. Has underlying
chronic interstitial lung disease. Known to the pulmonary service. Will consult pulmonary. Chest x-ray findings consistent with chronic interstitial lung disease, not appreciably changed compared to previous films.
Compensated chronic metabolic alkalosis in setting of chronic respiratory acidosis due to chronic respiratory failure. Bicarbonate 39, near baseline.
Chronic iron deficiency anemia -transfusion dependent. Suspect related to chronic GI blood loss, history of GAVE. Hemoglobin averages around 8. Currently 7.4. Monitor for now. No clear indication for GI consult currently. Advance diet to solid
food.
Chronic heart failure midrange EF -daughter states that she has gained 25 pounds in the past year. She is concerned about worsening lower extremity edema although the patient states it has not changed. Will update echocardiogram. BNP noted to be
elevated, 2560.
Uncertain if she is in acute heart failure at this point in time. On admission her furosemide was changed to 40 mg IV twice daily. Await echocardiogram.
Permanent atrial fibrillation -not on anticoagulation due to chronic anemia, chronic blood loss.
DM2 without hyperglycemia -glucose 136 this morning. Does not appear to be on diabetes medications at home. Use low resistance insulin scale. Did receive a dose of IV Decadron in the emergency room yesterday.
Diabetic peripheral neuropathy
Permanent atrial fibrillation
Permanent pacemaker
CAD
Hyperlipidemia
Hypothyroidism
Limited DNR
Updated daughter on the phone.
Anticipated Discharge: > 48 hours
Subjective/Interval History
-
Date of Service: January 30, 2024
Patient seen and examined. Denies shortness of breath. No complaints.
Objective Data
-
Labs:
Laboratory Results
01/30/24
05:24
WBC 11.3 H
Hgb 7.4 L
Hct 24.5 L
Plt Count 143
Sodium 137
Potassium 4.2
Chloride 92 L
Carbon Dioxide 39 H
BUN 25 H
Creatinine 0.8
Glucose 136 H
Calcium 8.2 L
Total Bilirubin 1.0 D
AST 25
ALT 11
Alkaline Phosphatase 74
Vital Signs:
Vital Signs
Temp Pulse Resp BP Pulse Ox
98.0 F 94 13 105/75 99
01/30/24 07:20 01/30/24 06:15 01/30/24 06:15 01/30/24 06:00 01/30/24 06:15
I&O
01/29/24 01/30/24 01/31/24
06:59 06:59 06:59
Output Total 200 / 200
Balance -200 / -200
Review of Systems
-
History Source: Patient
All other systems: Reviewed and negative
--- NOTE | 2024-01-30 08:44 | CON.PUL ---
Consultation
Consultation Request
Date/Time Consultation Requested: 01/29
Date/Time Consultation Performed: 01/29
Reason for Consultation: Abnormal chest x-ray, hypoxia
Medical History
-
History of Present Illness:
History obtained from the chart, reviewing outpatient records, contacting family. Patient with history of bilateral viral pneumonia in the past, chronic interstitial changes on chronic oxygen therapy, moderate mitral regurgitation with history of
heart failure and chronic anemia requiring transfusions, presents to [facility] 01/29/2024 with shortness of breath. Patient unable to state why she is in the hospital, but per ED records, patient was noted to be short of breath with hypoxia
during a blood transfusion. Daughter states that while getting the transfusion, saturation went down in the 60s, lips turned blue and patient became symptomatic, yelling for help. She also had another transfusion 2 weeks prior, received
transfusion weekly. Upon arrival to [facility], afebrile, pulse 109, breathing at 33, 64% saturation, she required 100% nonrebreather. Chest x-ray suggested bilateral interstitial changes, hemoglobin 7.9, normal creatinine. Patient was
given 20 mg of Lasix in the ED and admitted for further management. We are asked to comment on pulmonary process 01/29.
Presently, patient is feeling 'great'. She denies chest pain, cough, lightheadedness, dizziness, nausea. She is hungry and wants to eat. She denies any dysphagia or choking. She states she is bedridden, requiring aids to mobilize at home. She
states she lives alone but has family checking on her
.
PMH: Chronic hypoxia on home oxygen, GAVE with history of anemia, gastric vascular ectasia, paroxysmal atrial fibrillation, history of heart failure, hypertension, hyperlipidemia, diabetes, valvular disease with mitral regurgitation, history of sick
sinus syndrome with pacemaker, hypothyroidism, ostial arthritis. History of gastric ulcer repair 2016, pacemaker 2019, stent placement 2019
Past Medical History
Past Medical History: None (See above)
Past Surgical History: None (See above)
Social History
Tobacco: Former Smoker (Minimal)
Alcohol: None
Drug: None
Personal:
Living: Alone (Patient states she has multiple aides and family)
Employment: Retired (She states she had '[employer]' jobs, '[employer]')
Family History
Family History: Other (Daughter with breast cancer and nephrolithiasis. Father , 2 brothers and 2 sisters. Patient otherwise has 6 children. 1 with spina bifida)
Allergies / Home Medications
Allergies
Allergy/AdvReac Type Severity Reaction Status Date / Time
enalapril maleate Allergy ANGIOEDEMA Verified 01/29/24 13:39
[From Vasotec]
Iodinated Contrast Media Allergy RASH,'COULDNT Verified 01/29/24 13:39
[IV Dye, Iodine Containing] BREATHE'
Home Medications
�Medication �Instructions �Recorded �Confirmed �Last Taken �Type
levothyroxine 125 mcg tablet 125 mcg PO MOTUWETHFRSA@0800 09/14/18 01/29/24 01/29/24 History
Thyroid
atorvastatin 40 mg tablet 40 mg PO HS High cholesterol 08/15/20 01/29/24 01/28/24 History
cyanocobalamin (vitamin B-12) 1,000 mcg PO NOON Supplement 08/15/20 01/29/24 01/28/24 History
1,000 mcg tablet
ascorbic acid (vitamin C) 1,000 mg 1,000 mg PO NOON Supplement 12/02/22 01/29/24 01/28/24 History
tablet (Vitamin C)
furosemide 40 mg tablet 80 mg PO QMONTH Fluid 12/05/22 01/29/24 1 Week Ago History
Retention/Swelling ~01/22/24
furosemide 40 mg tablet 40 mg PO BID Fluid 04/10/23 01/29/24 01/29/24 History
retention/Swelling
carvedilol 3.125 mg tablet 3.125 mg PO BID Blood Pressure 05/08/23 01/29/24 01/29/24 History
bisacodyl 5 mg tablet,delayed 5 mg PO HS PRN constipation 01/29/24 01/29/24 01/24/24 History
release (Dulcolax (bisacodyl))
cholecalciferol (vitamin D3) 50 50 mcg PO NOON Supplement 01/29/24 01/29/24 01/28/24 History
mcg (2,000 unit) tablet
diphenhydramine 25 1 tab PO HSPRN PRN sleep 01/29/24 01/29/24 Unknown History
mg-acetaminophen 500 mg tablet
(Tylenol PM Extra Strength)
guaifenesin 1,200 mg tablet, 600 mg PO [id number] PRN mucus 01/29/24 01/29/24 01/29/24 History
extended release 12 hr (Mucinex)
iron sucrose 200 mg iron/10 mL 200 mg IV QMONTH Supplement 01/29/24 01/29/24 01/12/24 History
intravenous solution (Venofer)
pantoprazole 40 mg tablet,delayed 40 mg PO DAILY gerd 01/29/24 01/29/24 01/29/24 History
release
potassium chloride 20 mEq 20 meq PO NOON Supplement 01/29/24 01/29/24 01/28/24 History
tablet,extended release(part/cryst)
vitamin E (dl, acetate) 180 mg 180 mg PO NOON Supplement 01/29/24 01/29/24 01/28/24 History
(400 unit) capsule
Review of Systems
-
History Source: Patient and Family
All other systems: Negative unless noted
Vitals / Labs / Diagnostic Testing
Vital Signs
Temp Pulse Resp BP Pulse Ox
98.0 F 94 13 105/75 99
01/30/24 07:20 01/30/24 06:15 01/30/24 06:15 01/30/24 06:00 01/30/24 06:15
Lab Data
01/30/24 05:24
01/30/24 05:24
Diagnostic Testing:
Physical Exam
-
HEENT: Normocephalic and Anicteric
Cardiovascular: S1/S2, Regular Rhythm, Murmur (n), Rub (n) and Calf Tenderness (1+)
Respiratory: Wheeze (n), Rales (few), Rhonchi (n) and Non-Labored Respirations
GI: Soft, Non Distended and Non Tender
Neurology: Awake, Alert and Oriented (To hospital)
Skin: Good Color (Mild pallor)
General: Comfortable (Conversant)
Assessment
-
83-year-old female with complex medical history including atrial fibrillation, hypertension, history of heart failure with moderate to severe mitral regurgitation, recurrent GI bleed requiring weekly transfusion, on 4 L of oxygen since 2022, who
presents with acute hypoxic respiratory insufficiency during the blood transfusion. Patient required 100% nonrebreather in the ED. Chest x-ray suggested bilateral interstitial changes. We are asked to comment on her pulmonary process 01/30/2024
Acute hypoxic respiratory insufficiency
60% saturation on 4 L
Requiring 100% nonrebreather
Suspected TRALI
Receiving blood transfusion during episode, cyanosis
Anemia
GAVE
Weekly transfusion. Hematology ([place])
History of heart failure
EF 40%
Mild mitral regurgitation
PA pressure 40, per echo 2022
History of pericardial effusion requiring urgent pericardiocentesis
Tamponade, December 2022
Cardiac arrest/ROSC
Aborted Watchman procedure
Conditions BUCKLE GLUER
COVID pneumonia in a vaccinated host 2020
AFib on chronic AC
CAD, coronary stent
Hypothyroidism
HTN
Hysterectomy
Atherosclerosis of aorta
Type 2 diabetes mellitus without complication
Iron deficiency anemia
Hx of gastric ulcer
Hyperlipidemia
Sick sinus syndrome s/p PPM
Ex-heavy cigarette smoker (20-30/day), quit >10 years ago
Pulmonary nodule on CT 11/04/22 - 7.1 mm part solid pulmonary nodule in the posterior segment of the right upper lobe
Sedentary
Limited DNR
Plan/recommendations
Patient with complex medical history
Events noted and confirmed through discussion with daughter by phone
Patient with episode of acute hypoxia during blood transfusion, lip cyanosis, significant symptoms. Required 100% nonrebreather
Chest x-ray with bilateral interstitial changes. Unchanged compared to a year ago but no interval chest x-ray to confirm. Films from 1 year ago during acute illness
Chest exam with few scattered crackles
1-2+ lower extremity edema noted, chronicity unclear
Per reviewing records, weight up 6 to 7 kg since November 2023
Moving forward
Differential includes TRALI vs TACO. Difficult to differentiate between acute lung injury process from transfusion versus volume overload
Mild leukocytosis noted.
No documentation of fever
No clear evidence of infectious process, aspiration
During my exam, she was maintained at 94 to 97% on 4 L.
When removing oxygen, she desaturated to 60% with minimal symptoms, no cyanosis, recovered upon return to 6 L, 97%
Reviewed outpatient records. 4 L is her baseline
Unfortunately, patient is 100% bedridden/sedentary, requires assistant signal maintainer with multiple aids for transfer out of bed to chair
Await echocardiogram
Given weight gain, not sure whether this may be volume overload
Patient did get 1 dose of Lasix 20 mg in the ED
Continue Lasix therapy for now
Would pursue possibility of volume overload for now versus TRALI
Hematology has been consulted
Reviewed long-term prognosis with daughter by phone. Limited DNR as noted
If this continues to be an issue with regards to intolerance of volume and/or lung injury process, may need to transition discussion towards hospice
Daughter is aware of poor prognosis
Reviewed with patient, daughter at length
Reviewed with primary service. We will follow
[2024-01-30] MEDS: PROTONIX 40 MG PO (08:49)
[2024-01-30] MEDS: LASIX 40 MG IV ×2 (08:49→17:04)
[2024-01-30] MEDS: COREG 3.125 MG PO ×2 (08:49→20:05)
--- NOTE | 2024-01-30 10:07 | PTCARENOTE ---
Pt is AAOx3 forgetful . Pt in Afib nopacer beats noted at this time. 5 liyers O2 at 99% lungs are coarser . R leg has 2-3 edema pt states its been like that for years. Refusing Seds
[2024-01-30] MEDS: KCL 20 MEQ PO (11:40)
[2024-01-30] MEDS: VITAMIN D3 (cholecalciferol) 50 MCG PO (11:41)
[2024-01-30] MEDS: VITAMIN B-12 1000 MCG PO (11:41)
[2024-01-30] MEDS: VITAMIN C 1000 MG PO (11:41)
[2024-01-30] MEDS: VITAMIN E 400 UNITS PO (11:41)
[2024-01-30 12:17] LABS: Glucose - Point of Care 184 mg/dl (70-99)
[2024-01-30] MEDS: NOVOLOG FLEXPEN-LOW RESISTANCE 1 UNITS SC (13:33)
--- NOTE | 2024-01-30 13:40 | CM ---
Addendum entered by Anastasia Zaldivar RN 01/30/24 14:19:
PCP - Florentino Castro
Pharmacy - [facility]
Original Note:
Patient with Dx Acute on chronic hypoxic respiratory failure. O2 5L. Receiving IV Lasix. PT/OT Evals pending.
Met with patient and spoke with daughter Mary Kay;
the patient resides alone in a first floor apartment with 3 + 2 ROEL.
The patient has been assisted with ADLs such as bathing by her caregiver and ambulates with her rollator at home and RW when she goes out.
The patient has 3 caregivers from [facility]- 8 hours and 24 hr coverage on the weekends.
The patient has not had any falls however her legs have been weak. She has been SOB when ambulating.
She has been afraid of doing the stairs at home which has become problematic for going out and daughter says she will need help finding her another place to live- she had contacted [facility] to see if they have a SW that can help with this - she did
not speak with SW yet.
DME - RW, rollator, w/c, O2 concentrator used HS
VN - prior [facility] and recently prior [facility] - daughter wishes patient to have [facility] at d/c, agrees to SW for senior living planning
SNF - prior [facility]
No issues affording food as has SNAP in place and gets $54/month. Also receives $200/month from her medical insurance for adult diapers and supplies.
Daughter wants patient to return home with [facility]. If she has increased mobility issues per PT/OT she may increase caregiver hours.
Daughter expressed concern about patient's diet as patient has gained 20 bs over 1 year---> message forwarded to Dr Bailey
Plan follow up after PT/OT Evals.
Plan home with [facility] with caregivers.
[2024-01-30 14:05] LABS: INR 1.43; PT 17.3 Sec (11.4-14.6)
[2024-01-30 14:06] LABS: APTT 30.7 Sec (23.4-35.0)
[2024-01-30 14:08] LABS: D-Dimer 3.83 ug/mlFEU (0.00-0.50)
--- NOTE | 2024-01-30 16:54 | CON.ONC ---
Impression
Impression
- acute respiratory failure during transfusion
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
- iron deficiency anemia
- CHF
Plan
Plan
- transfusion reaction panel immediately after event negative GLORIA or new antibodies. although T bili transiently kali to 2.7 it has now normalized and there is low suspicion for active hemolysis with stable hgb. coags overall normal with mild
elevation in d-dimer.
- Question of whether event represented TRALI vs. TACO as she is obvious high risk for TACO and has had issues with post transfusion volume overload in past. She examines as having volume overload however went into transfusion w/ LE edema. CXR more
suggestive for inflammatory process then pulmonary edema. No blood gas on presentation however per report pt exhibited signs of hypoxemia with purple lips etc.
- BNP ordered as this commonly is high in TACO and less so in TRALI. Echo without apical or global akinesis, notes increased size of RV, worsening tricuspid regurg.
- pt was given steroids (suspect cause for new WBC elevation) as well as IV lasix and respiratory O2 requirements improved, now on 5L NC ( on 4 at home).
- if possible try to limit transfusions at this time, only if < 7.0 g/dl and would administer slow with additional diuretic support. Per pathology, if blood products needed blood bank aware to use male donor products due to lower risk for TRALI.
Patient History
History of Present Illness
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
artery disease status post stent in 2020, HFmrEF, chronic hypoxemic respiratory failure unclear etiology on 4 L baseline, hypertension, hypothyroidism, hyperlipidemia who presented from [facility] after becoming acutely SOB hypoxia and AMS while receiving
blood transfusion. Patient receives every other week infusion of red blood cells (received 20 IV lasix w/ infusion due to risk for overload) and iron for iron deficiency anemia.She initially required non-rebreather however now is on 5L NC, mentation
at baseline. She cannot recall events that brought her to hospital. CXR in ER showed Moderate diffuse coarsening of the bronchovascular markings throughout both lungs suggestive more for diffuse bilateral pulmonary interstitial disease than
pulmonary edema. Hemolysis labs after transfusion Showed a rise in total bilirubin to 2.7 which has normalized to 1.0. LDH was normal at 274, reticulocyte count 3.6%. Haptoglobin pending. Hemoglobin is 7.4 g/dL. Labs are also notable for a new
leukocytosis with white count 11.3 platelets are normal at 143,000. transfusion reaction panel showed negative GLORIA and antibody screen with again negative AB screen today. She notes worsening LE swelling however this has been over weeks.
Patient Medication
�Medication �Instructions �Recorded �Confirmed �Last Taken �Type
levothyroxine 125 mcg tablet 125 mcg PO MOTUWETHFRSA@0800 09/14/18 01/29/24 01/29/24 History
Thyroid
atorvastatin 40 mg tablet 40 mg PO HS High cholesterol 08/15/20 01/29/24 01/28/24 History
cyanocobalamin (vitamin B-12) 1,000 mcg PO NOON Supplement 08/15/20 01/29/24 01/28/24 History
1,000 mcg tablet
ascorbic acid (vitamin C) 1,000 mg 1,000 mg PO NOON Supplement 12/02/22 01/29/24 01/28/24 History
tablet (Vitamin C)
furosemide 40 mg tablet 80 mg PO QMONTH Fluid 12/05/22 01/29/24 1 Week Ago History
Retention/Swelling ~01/22/24
furosemide 40 mg tablet 40 mg PO BID Fluid 04/10/23 01/29/24 01/29/24 History
retention/Swelling
carvedilol 3.125 mg tablet 3.125 mg PO BID Blood Pressure 05/08/23 01/29/24 01/29/24 History
bisacodyl 5 mg tablet,delayed 5 mg PO HS PRN constipation 01/29/24 01/29/24 01/24/24 History
release (Dulcolax (bisacodyl))
cholecalciferol (vitamin D3) 50 50 mcg PO NOON Supplement 01/29/24 01/29/24 01/28/24 History
mcg (2,000 unit) tablet
diphenhydramine 25 1 tab PO HSPRN PRN sleep 01/29/24 01/29/24 Unknown History
mg-acetaminophen 500 mg tablet
(Tylenol PM Extra Strength)
guaifenesin 1,200 mg tablet, 600 mg PO [id number] PRN mucus 01/29/24 01/29/24 01/29/24 History
extended release 12 hr (Mucinex)
iron sucrose 200 mg iron/10 mL 200 mg IV QMONTH Supplement 01/29/24 01/29/24 01/12/24 History
intravenous solution (Venofer)
pantoprazole 40 mg tablet,delayed 40 mg PO DAILY gerd 01/29/24 01/29/24 01/29/24 History
release
potassium chloride 20 mEq 20 meq PO NOON Supplement 01/29/24 01/29/24 01/28/24 History
tablet,extended release(part/cryst)
vitamin E (dl, acetate) 180 mg 180 mg PO NOON Supplement 01/29/24 01/29/24 01/28/24 History
(400 unit) capsule
Active Medications
Generic Name Dose Route Start Last Admin
Trade Name Freq PRN Reason Stop Dose Admin
Acetaminophen 500 mg 01/29/24 19:09
Acetaminophen 500 Mg Tablet PO 02/26/24 19:08
HSPRN PRN
sleep (give w/ Benadryl)
Ascorbic Acid 1,000 mg 01/30/24 12:00 01/30/24 11:41
Ascorbic Acid 500 Mg Tablet PO 02/27/24 11:59 1,000 mg
NOON HARRY Administration
Atorvastatin Calcium 40 mg 01/29/24 22:00 01/29/24 20:17
Atorvastatin (Lipitor) 40 Mg Tablet PO 02/26/24 21:59 40 mg
HS HARRY Administration
Bisacodyl 5 mg 01/29/24 18:36
Bisacodyl 5 Mg Enteric Coated Tablet PO 02/26/24 18:35
HSPRN PRN
constipation
Carvedilol 3.125 mg 01/29/24 20:00 01/30/24 08:49
Carvedilol 3.125 Mg Tablet PO 02/26/24 19:59 3.125 mg
BID HARRY Administration
Cholecalciferol 50 mcg 01/30/24 12:00 01/30/24 11:41
Cholecalciferol (Vitamin D3) 50 Mcg Tablet (2,000 Units) PO 02/27/24 11:59 50 mcg
NOON HARRY Administration
Cyanocobalamin 1,000 mcg 01/30/24 12:00 01/30/24 11:41
Cyanocobalamin 1,000 Mcg Tablet PO 02/27/24 11:59 1,000 mcg
NOON HARRY Administration
Dextrose 12.5 grams 01/30/24 08:54
Dextrose 50% (0.5 Grams/Ml) 50 Ml Syringe IV 02/27/24 08:53
[id number] PRN
hypoglycemia
Protocol
Diphenhydramine HCl 25 mg 01/29/24 19:09
Diphenhydramine 25 Mg Capsule PO 02/26/24 19:08
HSPRN PRN
sleep
Furosemide 40 mg 01/30/24 08:00 01/30/24 08:49
Furosemide 40 Mg (10 Mg/Ml) 4 Ml Vial IV 02/27/24 07:59 40 mg
BID AT 0800,1600 HARRY Administration
Glucagon 1 mg 01/30/24 08:54
Glucagon 1 Mg Vial IM 02/27/24 08:53
PRN PRN
hypoglycemia
Protocol
Guaifenesin 600 mg 01/29/24 19:07
Guaifenesin 600 Mg Extended Release Tablet PO 02/26/24 19:06
[id number] PRN
mucus
Insulin Aspart 0 units 01/30/24 11:30 01/30/24 13:33
Insulin Aspart Low Resistance 300 Units/3 Ml Pen.Injctr SC 02/27/24 11:29 1 units
AC HARRY Administration
Protocol
Levothyroxine Sodium 125 mcg 01/30/24 06:00 01/30/24 05:28
Levothyroxine 125 Mcg Tablet PO 02/27/24 05:59 125 mcg
MoTuWeThFrSa@0600 HARRY Administration
Pantoprazole Sodium 40 mg 01/30/24 08:00 01/30/24 08:49
Pantoprazole 40 Mg Delayed Release Tablet PO 02/27/24 07:59 40 mg
DAILY HRARY Administration
Potassium Chloride 20 meq 01/30/24 12:00 01/30/24 11:40
Potassium Chloride 20 Meq Extended Release Tablet PO 02/27/24 11:59 20 meq
NOON HARRY Administration
Sodium Chloride 0 flush 01/29/24 19:00
Sodium Chloride 0.9% (Flush) Syringe IV 02/26/24 18:59
PER PROTOCOL HARRY
Vitamin E 400 units 01/30/24 12:00 01/30/24 11:41
Vitamin E 400 International Units Capsule (180 Mg) PO 02/27/24 11:59 400 units
NOON HARRY Administration
Review of Systems
-
Unable to obtain full review of systems at this time due to: Dementia
History Source: Patient and Records
Constitutional: Denies Fever
Respiratory: Reports Cough and Trouble Breathing
Cardiac: Denies Chest Pain
GI: Reports Black Stools
Musculoskeletal: Reports Edema; Denies Joint Pain
Skin: Denies Itching or Rash
Neuro: Denies Dizzy
Hematologic/Lymphatic: Reports Bleeding
Physical Exam
-
General: Comfortable and Appears Chronically Ill
Pulmonary: Rales
GI: Soft; Negative Distended
Musculoskeletal: Edema, Right Lower Extrem and Edema, Left Lower Extrem
Extremities: Edema (3+ tender )
Neurology: Non Focal
Labs
Lab Results
WBC 11.3 10^3/uL (4.8-10.8) H 01/30/24 05:24
RBC 2.58 10^6/uL (4.20-5.40) L 01/30/24 05:24
Hgb 7.4 g/dL (12.0-16.0) L 01/30/24 05:24
Hct 24.5 % (37.0-47.0) L 01/30/24 05:24
MCV 95.0 fL (81.0-99.0) 01/30/24 05:24
MCH 28.7 pg (27.0-31.0) 01/30/24 05:24
MCHC 30.2 g/dL (33.0-37.0) L 01/30/24 05:24
RDW 17.1 % (11.5-14.5) H 01/30/24 05:24
Plt Count 143 10^3/uL (130-400) 01/30/24 05:24
MPV 11.0 fL (7.4-10.4) H 01/30/24 05:24
Abs Immat Gran (auto) 0.0 10^3/uL (0-0.05) 01/30/24 05:24
Absolute Neuts (auto) 10.4 10^3/uL (1.4-6.5) H 01/30/24 05:24
Absolute Lymphs (auto) 0.4 10^3/uL (1.2-3.4) L 01/30/24 05:24
Absolute Monos (auto) 0.4 10^3/uL (0.1-0.6) 01/30/24 05:24
Absolute Eos (auto) 0.0 10^3/uL (0-0.7) 01/30/24 05:24
Absolute Basos (auto) 0.0 10^3/uL (0-0.2) 01/30/24 05:24
Immature Gran % 0.4 % (0-0.5) 01/30/24 05:24
Neutrophils % 92.1 % (42.2-75.2) H 01/30/24 05:24
Lymphocytes % 3.9 % (20.5-51.1) L 01/30/24 05:24
Monocytes % 3.5 % (1.7-9.3) 01/30/24 05:24
Eosinophils % 0.0 % (0-6) 01/30/24 05:24
Basophils % 0.1 % (0-2) 01/30/24 05:24
Creatinine 0.8 mg/dL (0.6-1.0) 01/30/24 05:24
Vital Signs
Vital Signs
Temp Pulse Resp BP Pulse Ox
98.0 F 101 23 98/63 95
01/30/24 11:15 01/30/24 16:00 01/30/24 16:00 01/30/24 14:00 01/30/24 16:00
[2024-01-30] MEDS: NOVOLOG FLEXPEN-LOW RESISTANCE 3 UNITS SC (17:04)
[2024-01-30 17:20] LABS: Glucose - Point of Care 288 mg/dl (70-99)
--- NOTE | 2024-01-30 18:17 | PTCARENOTE ---
Pt 1630 accu checkhigh as pt ate dinner before test
--- NOTE | 2024-01-30 18:18 | PTCARENOTE ---
Desenex powder ordered for abdi area that is reddened
[2024-01-30] MEDS: DESENEX/MITRAZOL/ZEASORB 1 APPLIC TOPICAL (20:05)
[2024-01-30] MEDS: LIPITOR 40 MG PO (20:06)
[2024-01-30 22:36] LABS: Glucose - Point of Care 233 mg/dl (70-99)
[2024-01-30] MEDS: BENADRYL 25 MG PO (22:53)
[2024-01-30] MEDS: TYLENOL 500 MG PO (22:53)
[2024-01-30 23:17] LABS: NT-proBNP 6150 pg/ml
[2024-01-31] VITALS (14 sets, daily range): BP systolic 77–126; BP diastolic 47–82; BMI 32.9
[2024-01-31] MEDS: SYNTHROID 125 MCG PO (05:54)
--- NOTE | 2024-01-31 06:00 | PTCARENOTE ---
Pt requesting prn Tylenol/Benadryl for sleep. Daren(son), called requesting update... hoping the provider can call him or Heidi tomorrow for update /how long until discharge. 5L NC, +SNOWDEN and with speaking. Tele showing chronic afib. SBPs soft,
MAPs >65. Incont of urine; encouraged pt to tell staff when she is wet. groin/abdi area is excoriated/red/peeling; cream & powder applied. Swallowing pills w/o issues. Continues to refuse SCDs, edu provided. Call brower within reach. Bed alarm set for
safety. Pt calls appropriately.
[2024-01-31 06:02] LABS: % Basophils 0.1 % (0-2); % Eosinophils 0.5 % (0-6); % Immature Granulocytes 0.4 % (0-0.5); % Lymphocytes 8.3 % (20.5-51.1); % Monocytes 10.4 % (1.7-9.3); % Neutrophils 80.3 % (42.2-75.2); Absolute Lymphocytes 0.7 10^3/uL (1.2-3.4); Absolute Monocytes 0.9 10^3/uL (0.1-0.6); Absolute Neutrophils 6.6 10^3/uL (1.4-6.5); Hematocrit 25.6 % (37.0-47.0); Hemoglobin 7.8 g/dL (12.0-16.0); Mean Corp Hgb Conc. 30.5 g/dL (33.0-37.0); Mean Corpuscular Hgb 28.5 pg (27.0-31.0); Mean Corpuscular Volume 93.4 fL (81.0-99.0); Mean Platelet Volume 11.5 fL (7.4-10.4); Nucleated Red Blood Cells % 0 %; Platelet Count 149 10^3/uL (130-400); Red Blood Cell Count 2.74 10^6/uL (4.20-5.40); Red Cell Dist. Width 16.8 % (11.5-14.5); White Blood Cell Count 8.2 10^3/uL (4.8-10.8)
[2024-01-31 06:28] LABS: ALT (SGPT) 13 U/L (0-35); AST (SGOT) 28 U/L (14-36); Albumin 3.2 g/dl (3.5-5.0); Alkaline Phosphatase 75 U/L (38-126); Blood Urea Nitrogen 34 mg/dl (7-17); Carbon Dioxide 39 mmol/L (22-30); Chloride 90 mmol/L (98-107); Estimated Creatinine Clearance 36 ml/min; Glucose 152 mg/dl (70-99); Potassium 4.9 mmol/L (3.5-5.1); Sodium 133 mmol/L (135-145); Total Bilirubin 0.9 mg/dl (0.2-1.3); Total Protein 6.3 g/dl (6.3-8.2); eGFR 49.24
[2024-01-31 07:33] LABS: Glucose - Point of Care 161 mg/dl (70-99)
--- NOTE | 2024-01-31 08:35 | W.PN.HOSP.TC ---
Today's Communication/Plan
-
Cardiology consult
Assessment / Plan
Assessment / Plan
Gen-AAOx3, NAD
HEENT-NC, AT, anicteric, clear oral mm
Neck-supple
CV-reg, no M, +S1/S2
Lungs-faint Rales bilaterally
Abd-soft, NT, ND
Ext-bilateral lower extremity edema, right greater than left
Musculoskeletal-no cyanosis, clubbing
Skin-warm and dry
Neuro-grossly non-focal
Psych-calm, cooperative
Acute on chronic hypoxic respiratory failure -differential diagnosis includes TRALI versus acute pulmonary edema versus other. I suspect most likely diagnosis is transfusion associated circulatory overload given improvement with diuresis, elevated
BNP. Oxygenation stable on 5 L. Baseline uses 4 L nasal cannula oxygen at home. Has underlying chronic interstitial lung disease. Known to the pulmonary service. Will consult pulmonary. Chest x-ray findings consistent with chronic interstitial
lung disease, not appreciably changed compared to previous films.
Compensated chronic metabolic alkalosis in setting of chronic respiratory acidosis due to chronic respiratory failure. Bicarbonate 39, near baseline.
Chronic iron deficiency anemia -transfusion dependent. Suspect related to chronic GI blood loss, history of GAVE. Hemoglobin averages around 8. Currently 7.8 and stable. Monitor for now.
Acute on chronic heart failure midrange EF -daughter states that she has gained 25 pounds in the past year. Rising BNP concerning, not sure if weights are accurate but supposedly her weight is going up. Echocardiogram shows LVEF 50 to 55%, dilated
RV with reduced systolic function, mild to moderate MR, moderate to severe TR. Continue IV Lasix. Consult cardiology.
Rising BUN and creatinine concerning. Difficult to assess true volume status. Consider right heart catheterization.
Hyponatremia -133.
Permanent atrial fibrillation -not on anticoagulation due to chronic anemia, chronic blood loss.
DM2 without hyperglycemia -glucose 152 this morning. Does not appear to be on diabetes medications at home. Hemoglobin A1c pending. Use low resistance insulin scale. Did receive a dose of IV Decadron in the emergency room yesterday.
Diabetic peripheral neuropathy
Permanent atrial fibrillation
Permanent pacemaker
CAD
Hyperlipidemia
Hypothyroidism
Limited DNR
Anticipated Discharge: > 48 hours
Subjective/Interval History
-
Date of Service: January 31, 2024
Patient seen and examined. No complaints.
Objective Data
-
Labs:
Laboratory Results
01/31/24
05:38
WBC 8.2
Hgb 7.8 L
Hct 25.6 L
Plt Count 149
Sodium 133 L
Potassium 4.9
Chloride 90 L
Carbon Dioxide 39 H
BUN 34 H
Creatinine 1.1 H
Glucose 152 H
Calcium 8.0 L
Total Bilirubin 0.9
AST 28
ALT 13
Alkaline Phosphatase 75
Vital Signs:
Vital Signs
Temp Pulse Resp BP Pulse Ox
98.0 F 77 21 97/72 100
01/31/24 07:20 01/31/24 06:15 01/31/24 06:15 01/31/24 06:00 01/31/24 06:15
I&O
01/30/24 01/31/24 02/01/24
06:59 06:59 06:59
Intake Total 480 / 480
Output Total 200 / 200
Balance -200 / -200 480 / 480
Review of Systems
-
History Source: Patient
All other systems: Reviewed and negative
[2024-01-31] MEDS: COREG 3.125 MG PO ×2 (08:42→20:25)
[2024-01-31] MEDS: PROTONIX 40 MG PO (08:42)
[2024-01-31] MEDS: DESENEX/MITRAZOL/ZEASORB 1 APPLIC TOPICAL ×2 (08:43→20:26)
[2024-01-31] MEDS: LASIX 40 MG IV ×2 (08:43→17:04)
[2024-01-31] MEDS: NOVOLOG FLEXPEN-LOW RESISTANCE 1 UNITS SC ×2 (08:44→12:17)
--- NOTE | 2024-01-31 09:45 | CON.CAR ---
Addendum entered and electronically signed by Haris Little MD 01/31/24 13:42:
I saw and examined the patient.
The [employer]'s note was reviewed and I agree with the note.
Comment: 83-year-old female (known to Dr. 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
pericardial effusion so procedure aborted), SSS s/p 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
blue lips during blood transfusion as infusion center.
She is confused and unable to provide much history to me. However, according to weights appears to be ~20 lbs up.
- IV diuresis
Original Note:
Consultation
Consultation Request
Date/Time Consultation Requested: 01/31/24 8:30 AM
Date/Time Consultation Performed: 01/31/2024 9:45 AM
Requesting Provider: Dr. Bailey
Performing Provider: SHEKHAR Wade for Dr. Little
Reason for Consultation: Volume overload status post transfusion
Medical History
-
Chief Complaint: Shortness of breath, hypoxic
History of Present Illness:
Mrs. Avina is an 83-year-old female (known to Dr. Charles) with GAVE due to recurrent GIB, iron deficiency anemia, permanent Afib (previously on Eliquis, not currently on OAC secondary to SAMARA/GIB), failed attempt at Watchman deployment (complicated
by acute pericardial effusion so procedure aborted), SSS s/p 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
skin and blue lips during blood transfusion as infusion center. She is admitted to the hospitalist service and we are consulted for acute HFpEF/volume overload s/p transfusion. She is receiving IV Lasix. She admits to 25 lbs weight gain over the
last 6 months and is on Lasix 40mg BID at home. She is not compliant with fluid/sodium restrictions as she eats a high sodium diet and does not monitor fluids.
Past Medical History
Past Medical History: Other (As above)
Past Surgical History: Other (As above)
Social History
Tobacco: Non-Smoker
Living: With Family
Family History
Family History: Reviewed & Not Pertinent
Allergies / Home Medications
Allergy/AdvReac Type Severity Reaction Status Date / Time
enalapril maleate Allergy ANGIOEDEMA Verified 01/29/24 13:39
[From Vasotec]
Iodinated Contrast Media Allergy RASH,'COULDNT Verified 01/29/24 13:39
[IV Dye, Iodine Containing] BREATHE'
�Medication �Instructions �Recorded �Confirmed �Type
levothyroxine 125 mcg tablet 125 mcg PO MOTUWETHFRSA@0800 09/14/18 01/29/24 History
Thyroid
atorvastatin 40 mg tablet 40 mg PO HS High cholesterol 08/15/20 01/29/24 History
cyanocobalamin (vitamin B-12) 1,000 mcg PO NOON Supplement 08/15/20 01/29/24 History
1,000 mcg tablet
ascorbic acid (vitamin C) 1,000 mg 1,000 mg PO NOON Supplement 12/02/22 01/29/24 History
tablet (Vitamin C)
furosemide 40 mg tablet 80 mg PO QMONTH Fluid 12/05/22 01/29/24 History
Retention/Swelling
furosemide 40 mg tablet 40 mg PO BID Fluid 04/10/23 01/29/24 History
retention/Swelling
carvedilol 3.125 mg tablet 3.125 mg PO BID Blood Pressure 05/08/23 01/29/24 History
bisacodyl 5 mg tablet,delayed 5 mg PO HS PRN constipation 01/29/24 01/29/24 History
release (Dulcolax (bisacodyl))
cholecalciferol (vitamin D3) 50 50 mcg PO NOON Supplement 01/29/24 01/29/24 History
mcg (2,000 unit) tablet
diphenhydramine 25 1 tab PO HSPRN PRN sleep 01/29/24 01/29/24 History
mg-acetaminophen 500 mg tablet
(Tylenol PM Extra Strength)
guaifenesin 1,200 mg tablet, 600 mg PO [id number] PRN mucus 01/29/24 01/29/24 History
extended release 12 hr (Mucinex)
iron sucrose 200 mg iron/10 mL 200 mg IV QMONTH Supplement 01/29/24 01/29/24 History
intravenous solution (Venofer)
pantoprazole 40 mg tablet,delayed 40 mg PO DAILY gerd 01/29/24 01/29/24 History
release
potassium chloride 20 mEq 20 meq PO NOON Supplement 01/29/24 01/29/24 History
tablet,extended release(part/cryst)
vitamin E (dl, acetate) 180 mg 180 mg PO NOON Supplement 01/29/24 01/29/24 History
(400 unit) capsule
Review of Systems
-
History Source: Patient and Family
All other systems: Negative unless noted
Physical Exam
Vital Signs
Temp Pulse Resp BP Pulse Ox
98.0 F 82 21 109/63 100
01/31/24 07:20 01/31/24 08:42 01/31/24 06:15 01/31/24 08:42 01/31/24 06:15
Lab Results
01/31/24 05:38
01/31/24 05:38
[id number] Pept 6150 pg/ml 01/30/24 22:48
Physical Exam
General: Other (pale, elderly)
HEENT: Normocephalic and Moist Mucous Membranes
Respiratory: Other (diminished b/l bases)
Cardiac: S1/S2, Irregular Rhythm, Murmur (2/6 ZOEY) and Peripheral Edema (+2-3 pitting b/l LE)
Breast: Deferred by me
GI: Soft, Non Tender, Non Distended and Normal Bowel Sounds
Rectal: Deferred by Provider
Genito-urinary: No Costovertebral Tender
Musculoskeletal: No Clubbing, No Cyanosis and Edema (+2-3 pitting b/l LE)
Skin: Warm and Dry
Neuro: AO x 3
Psych: Calm
Impression / Plan
-
HFpEF - acute status post transfusion.
-agree with continued IV diuresis and monitor response.
-fluid/sodium restrictions, daily weights, I&Os.
-intensive monitoring of lytes and renal function.
-Echo 01/30/2024: Normal LV size and function, no RWMA, EF 50-55%, dilated RV with reduced function, mild/moderate eccentric MR, mild/severe TR, PASP 57 mmHg.
Afib - permanent.
-Rapid rates initially, now rate controlled.
-Continue carvedilol.
-[id number] score of 7 (age, female, HTN, CHF, PAD/CAD, DM), previously on Eliquis but no longer on OAC 2/2 GAVE/recurrent GIB/SAMARA.
-Patient does not have a MARICARMEN occlusion device.
PPM - [employer], stable with normal function.
-Device is NOT MRI compatible.
Anemia - acute on chronic.
-Receives regular IV Venofer transfusions per heme as an outpatient.
-Heme following for possible TACO.
-follow H/H.
GAVR/GIB - managed by GI and heme.
-EGD 08/2022 gastric antral vascular ectasia w/o bleeding, hemostasis with APC.
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 Coagulation for hemostasis using argon plasma was successful.
-PPI BID.
CAD - prior stenting.
-stable w/o angina.
-continue medical therapy.
Valvular heart disease - mil/mod MR and mod/severe TR on echo.
-worse compared to previous.
Data Reviewed
-
EKG: Tracing Personally Visualized and interpreted (A-fib with rapid ventricular sponsor 106 bpm)
Radiology: Report Reviewed by me (CXR:moderate diffuse coarsening of the bronchovascular markings throughout both lungs in a pattern more suggestive of diffuse bilateral pulmonary interstitial inflammatory disease than pulmonary edema.)
Medical Tests (Nuc Med, Echo etc): Report Reviewed by me (Echo 01/30/2024: Normal LV size and function, no RWMA, EF 50-55%, dilated RV with reduced function, mild/moderate eccentric MR, mild/severe TR, PASP 57 mmHg)
Labs: Labs Reviewed by me
Old Records: Reviewed
[2024-01-31 09:49] LABS: Glycohemoglobin (HgbA1c) 5.1 % (4.0-5.6)
--- NOTE | 2024-01-31 11:00 | W.PN.PUL3 ---
Today's Communication / Plan
-
Remains on 5L NC, baseline use of 4L
Profoundly deconditioned, PT/OT
Continue diuresis per team
Once at baseline home O2 use, can likely eval for dispo
Outpatient FU recommended
Assessment
-
83-year-old female with complex medical history including atrial fibrillation, hypertension, history of heart failure with moderate to severe mitral regurgitation, recurrent GI bleed requiring weekly transfusion, on 4 L of oxygen since 2022, who
presents with acute hypoxic respiratory insufficiency during the blood transfusion. Patient required 100% nonrebreather in the ED. Chest x-ray suggested bilateral interstitial changes. We are asked to comment on her pulmonary process 01/30/2024
Acute hypoxic respiratory insufficiency
60% saturation on 4 L
Requiring 100% nonrebreather
Suspected TRALI
Receiving blood transfusion during episode, cyanosis
Anemia
GAVE
Weekly transfusion. Hematology ([facility])
History of heart failure
EF 40%
Mild mitral regurgitation
PA pressure 40, per echo 2022
History of pericardial effusion requiring urgent pericardiocentesis
Tamponade, December 2022
Cardiac arrest/ROSC
Aborted Watchman procedure
Conditions [employer]
COVID pneumonia in a vaccinated host 2020
AFib on chronic AC
CAD, coronary stent
Hypothyroidism
HTN
Hysterectomy
Atherosclerosis of aorta
Type 2 diabetes mellitus without complication
Iron deficiency anemia
Hx of gastric ulcer
Hyperlipidemia
Sick sinus syndrome s/p PPM
Ex-heavy cigarette smoker (20-30/day), quit >10 years ago
Pulmonary nodule on CT 11/04/22 - 7.1 mm part solid pulmonary nodule in the posterior segment of the right upper lobe
Sedentary
Limited DNR
Plan/recommendations
Patient with complex medical history
Events noted and confirmed through discussion with daughter by phone
Patient with episode of acute hypoxia during blood transfusion, lip cyanosis, significant symptoms. Required 100% nonrebreather
Chest x-ray with bilateral interstitial changes. Unchanged compared to a year ago but no interval chest x-ray to confirm. Films from 1 year ago during acute illness
Chest exam with few scattered crackles
1-2+ lower extremity edema noted, chronicity unclear
Per reviewing records, weight up 6 to 7 kg since November 2023
Moving forward
Differential includes TRALI vs TACO. Difficult to differentiate between acute lung injury process from transfusion versus volume overload
Mild leukocytosis noted.
No documentation of fever
No clear evidence of infectious process, aspiration
During my exam, she was maintained at 94 to 97% on 4 L.
When removing oxygen, she desaturated to 60% with minimal symptoms, no cyanosis, recovered upon return to 6 L, 97%
Reviewed outpatient records. 4 L is her baseline
Unfortunately, patient is 100% bedridden/sedentary, requires assistant auditor with multiple aids for transfer out of bed to chair
Await echocardiogram
Given weight gain, not sure whether this may be volume overload
Patient did get 1 dose of Lasix 20 mg in the ED
Continue Lasix therapy for now
Would pursue possibility of volume overload for now versus TRALI
Hematology has been consulted
Reviewed long-term prognosis with daughter by phone. Limited DNR as noted
If this continues to be an issue with regards to intolerance of volume and/or lung injury process, may need to transition discussion towards hospice
Daughter is aware of poor prognosis
Reviewed with patient, daughter at length
Reviewed with primary service. We will follow
Diagnostic Data
CXR 01/29/24- There is moderate diffuse coarsening of the bronchovascular markings throughout both lungs in a pattern more suggestive of diffuse bilateral pulmonary interstitial inflammatory disease than pulmonary edema.
01/18/23- Bilateral pulmonary opacities, right greater than left, for which differential considerations include pulmonary edema or pneumonia. Small bilateral pleural effusions. Cardiomegaly.
ECHO 01/30/24- Normal LV size with low normal systolic function and no regional wall motion abnormalities. LVEF is 50 to 55% by visual estimation. Dilated RV with reduced systolic function.
Mild to moderate eccentric mitral regurgitation. Moderate to severe tricuspid regurgitation. Estimated pulmonary artery pressure of 57 mmHg. Assuming a right atrial pressure of 15 mmHg.
Compared to prior from December 28, 2021, MR is now mild to moderate from mild and there is now moderate to severe tricuspid regurgitation from mild with moderately elevated estimated PASP of 57 mmHg similar to previous (TTE 2021).
12/12/22- Limited follow-up study to reassess pericardial effusion. Mildly reduced left ventricular function. No clear evidence of pericardial effusion. Compared to previous echo from 12/11/2022 there is no evidence of recurrent pericardial effusion.
Subjective Data
-
Date of Service:
Date of Service: January 31, 2024
Chief Complaint: Pulmonary Follow Up
Subjective:
no events ON, remains on 5L NC
deconditioned overall
Objective Data
Data Reviewed
Vital Signs / I&O / Oxygen:
Vital Signs
Temp Pulse Resp BP Pulse Ox
98.0 F 82 21 109/63 98
01/31/24 07:20 01/31/24 08:42 01/31/24 08:15 01/31/24 08:42 01/31/24 09:53
Intake and Output
01/30/24 01/31/24 02/01/24
06:59 06:59 06:59
Intake Total 480 / 480
Output Total 200 / 200
Balance -200 / -200 480 / 480
SaO2 98
Nasal Cannula flow liters per 5
minute
Physical Exam
General: Comfortable and Other (NAD, chronically ill appearing/weakness noted)
HEENT: Normocephalic, Anicteric and Other (dry MM, lip lesion)
Cardiovascular: S1-S2 and Regular Rhythm
Respiratory: Clear (overall decreased) and Non-Labored Respirations
GI: Soft, Non Distended and Non Tender
Neurology: Awake, Alert, Oriented, AO x 3 (to self/place) and No Motor Deficits
Skin: Warm, Dry and Good Color
Labs/Micro/Reports
Lab Data
01/31/24 05:38
01/31/24 05:38
Laboratory Results
01/30/24
13:43
PT 17.3 H
INR 1.43
APTT 30.7
[2024-01-31] MEDS: KCL 20 MEQ PO (12:18)
[2024-01-31] MEDS: VITAMIN C 1000 MG PO (12:20)
[2024-01-31] MEDS: VITAMIN D3 (cholecalciferol) 50 MCG PO (12:20)
[2024-01-31] MEDS: VITAMIN B-12 1000 MCG PO (12:20)
[2024-01-31] MEDS: VITAMIN E 400 UNITS PO (12:20)
[2024-01-31 12:23] LABS: Glucose - Point of Care 159 mg/dl (70-99)
[2024-01-31] MEDS: NOVOLOG FLEXPEN-LOW RESISTANCE 2 UNITS SC (17:22)
[2024-01-31 17:29] LABS: Glucose - Point of Care 226 mg/dl (70-99)
[2024-01-31] MEDS: LIPITOR 40 MG PO (20:25)
[2024-01-31 20:39] LABS: Haptoglobin 90 mg/dL (30-200)
[2024-01-31 21:25] LABS: Glucose - Point of Care 207 mg/dl (70-99)
--- NOTE | 2024-01-31 22:38 | W.PN.ONC2 ---
Today's Communication / Plan
-
Suspect TACO, no evidence of hemolytic transfusion reaction.
Limit transfusions if possible.
Seems back to usual chronically ill baseline.
Impression
Impression
- acute respiratory failure during transfusion
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
- iron deficiency anemia
- CHF
Plan
Plan
- transfusion reaction panel immediately after event negative GLORIA or new antibodies. although T bili transiently kali to 2.7 it has now normalized and there is low suspicion for active hemolysis with stable hgb. coags overall normal with mild
elevation in d-dimer.
- Question of whether event represented TRALI vs. transfusion-associated circulatory overload as she is obvious high risk and has had issues with post transfusion volume overload in past. She examines as having volume overload however went into
transfusion w/ LE edema. CXR more suggestive for inflammatory process then pulmonary edema. No blood gas on presentation however per report pt exhibited signs of hypoxemia with purple lips etc.
- BNP ordered as this commonly is high in TACO and less so in TRALI. Echo without apical or global akinesis, notes increased size of RV, worsening tricuspid regurg. BNP not elevated
- pt was given steroids (suspect cause for new WBC elevation) as well as IV lasix and respiratory O2 requirements improved, now on 5L NC ( on 4 at home).
- if possible try to limit transfusions at this time, only if < 7.0 g/dl and would administer slow with additional diuretic support. Per pathology, if blood products needed blood bank aware to use male donor products due to lower risk for TRALI.
Subjective/Objective
Chief Complaint
Heme Onc follow up of transfusion reaction
Subjective
Denies increased shortness of breath, poor historian
Vital Signs:
Vital Signs
Temp Pulse Resp BP Pulse Ox
98.2 F 76 30 126/77 96
01/31/24 19:40 01/31/24 20:25 01/31/24 18:00 01/31/24 20:25 01/31/24 18:00
Lab Results:
Laboratory Data
WBC 8.2 10^3/uL (4.8-10.8) 01/31/24 05:38
Hgb 7.8 g/dL (12.0-16.0) L 01/31/24 05:38
Plt Count 149 10^3/uL (130-400) 01/31/24 05:38
PT 17.3 Sec (11.4-14.6) H 01/30/24 13:43
INR 1.43 01/30/24 13:43
APTT 30.7 Sec (23.4-35.0) 01/30/24 13:43
eGFR 49.24 01/31/24 05:38
Physical Exam
Frail and chronically ill appearing
--- NOTE | 2024-01-31 23:56 | PTCARENOTE ---
Received pt sitting OOB to chair. Assist x 3 to get patient back into bed. Used slide board from chair, as patient having difficulty standing and transferring. AAOx3. Afib w/ occ V pacing on the monitor. [place] on 5L o2 97%. Lungs diminished w/
crackles at the bases. MASD to sacrum and groin - calazime cream and desenex applied.
[2024-02-01] VITALS (15 sets, daily range): BP systolic 88–108; BP diastolic 50–91; PULSE 82–87; O2SAT 98; BMI 33.1
[2024-02-01 04:35] LABS: % Basophils 0.3 % (0-2); % Eosinophils 1.4 % (0-6); % Immature Granulocytes 0.2 % (0-0.5); % Lymphocytes 11.3 % (20.5-51.1); % Monocytes 14.5 % (1.7-9.3); % Neutrophils 72.3 % (42.2-75.2); Absolute Eosinophils 0.1 10^3/uL (0-0.7); Absolute Lymphocytes 0.7 10^3/uL (1.2-3.4); Absolute Monocytes 0.9 10^3/uL (0.1-0.6); Absolute Neutrophils 4.6 10^3/uL (1.4-6.5); Hematocrit 26.7 % (37.0-47.0); Hemoglobin 7.9 g/dL (12.0-16.0); Mean Corp Hgb Conc. 29.6 g/dL (33.0-37.0); Mean Corpuscular Hgb 28.1 pg (27.0-31.0); Mean Platelet Volume 11.3 fL (7.4-10.4); Nucleated Red Blood Cells % 0 %; Platelet Count 143 10^3/uL (130-400); Red Blood Cell Count 2.81 10^6/uL (4.20-5.40); Red Cell Dist. Width 16.7 % (11.5-14.5); White Blood Cell Count 6.4 10^3/uL (4.8-10.8)
[2024-02-01 04:59] LABS: ALT (SGPT) 16 U/L (0-35); AST (SGOT) 32 U/L (14-36); Albumin 3.3 g/dl (3.5-5.0); Alkaline Phosphatase 92 U/L (38-126); Blood Urea Nitrogen 35 mg/dl (7-17); Calcium 8.4 mg/dl (8.4-10.2); Carbon Dioxide 37 mmol/L (22-30); Chloride 91 mmol/L (98-107); Estimated Creatinine Clearance 39 ml/min; Glucose 136 mg/dl (70-99); Potassium 4.6 mmol/L (3.5-5.1); Sodium 135 mmol/L (135-145); Total Bilirubin 0.9 mg/dl (0.2-1.3); Total Protein 6.3 g/dl (6.3-8.2); eGFR 55.21
[2024-02-01] MEDS: NOVOLOG FLEXPEN-LOW RESISTANCE SC (07:52)
[2024-02-01 07:59] LABS: Glucose - Point of Care 147 mg/dl (70-99)
--- NOTE | 2024-02-01 08:27 | W.PN.HOSP.TC ---
Today's Communication/Plan
-
Increase dose of Lasix
PT/OT
Assessment / Plan
Assessment / Plan
Gen-AAOx3, NAD
HEENT-NC, AT, anicteric, clear oral mm
Neck-supple
CV-reg, no M, +S1/S2
Lungs-faint Rales bilaterally
Abd-soft, NT, ND
Ext-bilateral lower extremity edema, right greater than left
Musculoskeletal-no cyanosis, clubbing
Skin-warm and dry
Neuro-grossly non-focal
Psych-calm, cooperative
Acute on chronic hypoxic respiratory failure -differential diagnosis includes TRALI versus acute pulmonary edema versus other. I suspect most likely diagnosis is transfusion associated circulatory overload given improvement with diuresis, elevated
BNP. Oxygenation stable on 5 L. Baseline uses 4 L nasal cannula oxygen at home. Has underlying chronic interstitial lung disease. Known to the pulmonary service. Will consult pulmonary. Chest x-ray findings consistent with chronic interstitial
lung disease, not appreciably changed compared to previous films.
Compensated chronic metabolic alkalosis in setting of chronic respiratory acidosis due to chronic respiratory failure. Bicarbonate 37, near baseline.
Chronic iron deficiency anemia -transfusion dependent. Suspect related to chronic GI blood loss, history of GAVE. Hemoglobin averages around 8. Currently 7.8 and stable. Monitor for now.
Acute on chronic heart failure midrange EF -daughter states that she has gained 25 pounds in the past year. Rising BNP concerning, not sure if weights are accurate but supposedly her weight is going up. Echocardiogram shows LVEF 50 to 55%, dilated
RV with reduced systolic function, mild to moderate MR, moderate to severe TR. Increase IV Lasix dose to 80 mg twice daily given rising weights.
Rising BUN and creatinine concerning. Difficult to assess true volume status. Consider right heart catheterization.
Hyponatremia -135.
Permanent atrial fibrillation -not on anticoagulation due to chronic anemia, chronic blood loss.
DM2 without hyperglycemia -glucose 152 this morning. Does not appear to be on diabetes medications at home. Hemoglobin A1c 5.1%, unreliable in the setting of chronic anemia. Use low resistance insulin scale. Did receive a dose of IV Decadron in
the emergency room yesterday.
Diabetic peripheral neuropathy
Permanent atrial fibrillation
Permanent pacemaker
CAD
Hyperlipidemia
Hypothyroidism
Limited DNR
PT/OT
Anticipated Discharge: > 48 hours
Subjective/Interval History
-
Date of Service: February 01, 2024
Patient seen and examined. No complaints.
Objective Data
-
Labs:
Laboratory Results
02/01/24
04:26
WBC 6.4
Hgb 7.9 L
Hct 26.7 L
Plt Count 143
Sodium 135
Potassium 4.6
Chloride 91 L
Carbon Dioxide 37 H
BUN 35 H
Creatinine 1.0
Glucose 136 H
Calcium 8.4
Total Bilirubin 0.9
AST 32
ALT 16
Alkaline Phosphatase 92
Vital Signs:
Vital Signs
Temp Pulse Resp BP Pulse Ox
98.3 F 106 16 108/50 98
02/01/24 02:53 02/01/24 06:15 02/01/24 06:15 02/01/24 06:00 02/01/24 06:15
I&O
01/31/24 02/01/24 02/02/24
06:59 06:59 06:59
Intake Total 480 / 480 420 / 420
Output Total 75 / 75
Balance 480 / 480 345 / 345
Review of Systems
-
History Source: Patient
All other systems: Reviewed and negative
[2024-02-01] MEDS: LASIX IV (08:48)
[2024-02-01] MEDS: COREG 3.125 MG PO (09:14)
[2024-02-01] MEDS: PROTONIX 40 MG PO (09:14)
[2024-02-01] MEDS: LASIX 80 MG IV ×2 (09:15→16:18)
[2024-02-01] MEDS: DESENEX/MITRAZOL/ZEASORB 1 APPLIC TOPICAL ×2 (09:15→20:49)
--- NOTE | 2024-02-01 09:56 | W.PN.PUL3 ---
Today's Communication / Plan
-
No significant changes, still remains on 5L
IV lasix continued
Deconditioning, bedbound, likely all contributing factors
Can repeat CXR in AM
Assessment
-
83-year-old female with complex medical history including atrial fibrillation, hypertension, history of heart failure with moderate to severe mitral regurgitation, recurrent GI bleed requiring weekly transfusion, on 4 L of oxygen since 2022, who
presents with acute hypoxic respiratory insufficiency during the blood transfusion. Patient required 100% nonrebreather in the ED. Chest x-ray suggested bilateral interstitial changes. We are asked to comment on her pulmonary process 01/30/2024
Acute hypoxic respiratory insufficiency
60% saturation on 4 L
Requiring 100% nonrebreather
Suspected TRALI
Receiving blood transfusion during episode, cyanosis
Anemia
GAVE
Weekly transfusion. Hematology ([facility])
History of heart failure
EF 40%
Mild mitral regurgitation
PA pressure 40, per echo 2022
History of pericardial effusion requiring urgent pericardiocentesis
Tamponade, December 2022
Cardiac arrest/ROSC
Aborted Watchman procedure
Conditions [employer]
COVID pneumonia in a vaccinated host 2020
AFib on chronic AC
CAD, coronary stent
Hypothyroidism
HTN
Hysterectomy
Atherosclerosis of aorta
Type 2 diabetes mellitus without complication
Iron deficiency anemia
Hx of gastric ulcer
Hyperlipidemia
Sick sinus syndrome s/p PPM
Ex-heavy cigarette smoker (20-30/day), quit >10 years ago
Pulmonary nodule on CT 11/04/22 - 7.1 mm part solid pulmonary nodule in the posterior segment of the right upper lobe
Sedentary
Limited DNR
Plan/recommendations
Patient with complex medical history
Events noted and confirmed through discussion with daughter by phone
Patient with episode of acute hypoxia during blood transfusion, lip cyanosis, significant symptoms. Required 100% nonrebreather
Chest x-ray with bilateral interstitial changes. Unchanged compared to a year ago but no interval chest x-ray to confirm. Films from 1 year ago during acute illness
Chest exam with few scattered crackles
1-2+ lower extremity edema noted, chronicity unclear
Per reviewing records, weight up 6 to 7 kg since November 2023
Moving forward
Differential includes TRALI vs TACO. Difficult to differentiate between acute lung injury process from transfusion versus volume overload
Mild leukocytosis noted.
No documentation of fever
No clear evidence of infectious process, aspiration
During my exam, she was maintained at 94 to 97% on 4 L.
When removing oxygen, she desaturated to 60% with minimal symptoms, no cyanosis, recovered upon return to 6 L, 97%
Reviewed outpatient records. 4 L is her baseline
Unfortunately, patient is 100% bedridden/sedentary, requires logging assistant with multiple aids for transfer out of bed to chair
Echo reviewed, preserved function/mod MR, mod-severe TR, est PAP 57
Given weight gain, not sure whether this may be volume overload
Lasix 80 IV BID ongoing
Would pursue possibility of volume overload for now versus TRALI
Hematology has been consulted
Reviewed long-term prognosis with daughter by phone.
Limited DNR is noted
If this continues to be an issue with regards to intolerance of volume and/or lung injury process, may need to transition discussion towards hospice
Daughter is aware of poor prognosis
Diagnostic Data
CXR 01/29/24- There is moderate diffuse coarsening of the bronchovascular markings throughout both lungs in a pattern more suggestive of diffuse bilateral pulmonary interstitial inflammatory disease than pulmonary edema.
01/18/23- Bilateral pulmonary opacities, right greater than left, for which differential considerations include pulmonary edema or pneumonia. Small bilateral pleural effusions. Cardiomegaly.
ECHO 01/30/24- Normal LV size with low normal systolic function and no regional wall motion abnormalities. LVEF is 50 to 55% by visual estimation. Dilated RV with reduced systolic function.
Mild to moderate eccentric mitral regurgitation. Moderate to severe tricuspid regurgitation. Estimated pulmonary artery pressure of 57 mmHg. Assuming a right atrial pressure of 15 mmHg.
Compared to prior from December 28, 2021, MR is now mild to moderate from mild and there is now moderate to severe tricuspid regurgitation from mild with moderately elevated estimated PASP of 57 mmHg similar to previous (TTE 2021).
12/12/22- Limited follow-up study to reassess pericardial effusion. Mildly reduced left ventricular function. No clear evidence of pericardial effusion. Compared to previous echo from 12/11/2022 there is no evidence of recurrent pericardial effusion.
Subjective Data
-
Date of Service:
Date of Service: February 01, 2024
Chief Complaint: Pulmonary Follow Up
Subjective:
still remains on 5L NC
no new complaints/events
sleeping in bed
Objective Data
Data Reviewed
Vital Signs / I&O / Oxygen:
Vital Signs
Temp Pulse Resp BP Pulse Ox
98.0 F 85 16 103/58 98
02/01/24 07:30 02/01/24 09:14 02/01/24 06:15 02/01/24 09:15 02/01/24 09:20
Intake and Output
01/31/24 02/01/24 02/02/24
06:59 06:59 06:59
Intake Total 480 / 480 420 / 420
Output Total 75 / 75
Balance 480 / 480 345 / 345
SaO2 98
Nasal Cannula flow liters per 5
minute
Physical Exam
General: Comfortable and Other (NAD, chronically ill appearing/weakness noted)
HEENT: Normocephalic, Anicteric and Other (dry MM, lip lesion)
Cardiovascular: S1-S2 and Regular Rhythm
Respiratory: Clear (overall decreased) and Non-Labored Respirations
GI: Soft, Non Distended and Non Tender
Neurology: Awake, Alert, Oriented, AO x 3 (to self/place) and No Motor Deficits
Skin: Warm, Dry and Good Color
Labs/Micro/Reports
Lab Data
02/01/24 04:26
02/01/24 04:26
--- NOTE | 2024-02-01 11:23 | W.PN.CD ---
Today's Communication / Plan
-
increased IV diuretics
Impression / Plan
-
83-year-old female (known to Dr. 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
pericardial effusion so procedure aborted), SSS s/p 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
blue lips during blood transfusion as infusion center. She is better oriented today.
HFpEF - acute status post transfusion.
-Increased IV diuretics, standing weights
-fluid/sodium restrictions, daily weights, I&Os.
-intensive monitoring of lytes and renal function.
-Echo 01/30/2024: Normal LV size and function, no RWMA, EF 50-55%, dilated RV with reduced function, mild/moderate eccentric MR, mild/severe TR, PASP 57 mmHg.
Afib - permanent.
-Rapid rates initially, now rate controlled.
-Continue carvedilol.
-[id number] score of 7 (age, female, HTN, CHF, PAD/CAD, DM), previously on Eliquis but no longer on OAC 2/2 GAVE/recurrent GIB/SAMARA.
-Patient does not have a MARICARMEN occlusion device.
PPM - [employer], stable with normal function.
-Device is NOT MRI compatible.
Anemia - acute on chronic.
-Receives regular IV Venofer transfusions per heme as an outpatient.
-Heme following for possible TACO.
-follow H/H.
GAVR/GIB - managed by GI and heme.
-EGD 08/2022 gastric antral vascular ectasia w/o bleeding, hemostasis with APC.
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 Coagulation for hemostasis using argon plasma was successful.
-PPI BID.
CAD - prior stenting.
-stable w/o angina.
-continue medical therapy.
Valvular heart disease - mil/mod MR and mod/severe TR on echo.
-worse compared to previous.
Physical Exam
Vital Signs/Labs
Vital Signs
Temp Pulse Resp BP Pulse Ox
98.0 F 85 16 103/58 98
02/01/24 07:30 02/01/24 09:14 02/01/24 06:15 02/01/24 09:15 02/01/24 09:20
01/31/24 02/01/24 02/02/24
06:59 06:59 06:59
Actual Weight 174 lb 2.643 oz 175 lb 4.28 oz
02/01/24 04:26
02/01/24 04:26
PT 17.3 Sec (11.4-14.6) H 01/30/24 13:43
INR 1.43 01/30/24 13:43
APTT 30.7 Sec (23.4-35.0) 01/30/24 13:43
Magnesium 1.8 mg/dl (1.6-2.3) 01/29/24 12:56
01/29/24 01/30/24
12:57 22:48
[id number] Pept [id number]
Physical Exam
Constitutional: No acute distress
EENT: Anicteric
Cardiovascular: Rhythm/rate is irregular (paced)
Respiratory: Respiratory effort normal and Lungs clear to auscul.
GI: Soft
Neuro/Psych: Other (more oriented person and place not time )
Data Reviewed
-
Date of Service: February 01, 2024
EKG: Tracing Personally Visualized and interpreted (af)
Echo: Report Reviewed by me
Labs: Labs Reviewed by me
[2024-02-01] MEDS: VITAMIN D3 (cholecalciferol) 50 MCG PO (12:09)
[2024-02-01] MEDS: VITAMIN C 1000 MG PO (12:09)
[2024-02-01] MEDS: VITAMIN E 400 UNITS PO (12:09)
[2024-02-01] MEDS: VITAMIN B-12 1000 MCG PO (12:09)
[2024-02-01] MEDS: KCL 20 MEQ PO (12:09)
[2024-02-01 12:20] LABS: Glucose - Point of Care 174 mg/dl (70-99)
[2024-02-01] MEDS: NOVOLOG FLEXPEN-LOW RESISTANCE 300 UNITS SC (13:09)
--- NOTE | 2024-02-01 15:52 | PTCARENOTE ---
Rec'd pt this AM. Very lethargic but arousable with good appetite. Resting comfortably. O2 down to 4L NC, which is pt's baseline. BP soft 97/58. Dr. Bailey updated, OK to give IV lasix. Pt requested purewik due to weakness, voiding large amount
with lasix. RN provided education, clearn abdi area, treated with barrier cream and replaced purewik x2.
[2024-02-01 16:53] LABS: Glucose - Point of Care 165 mg/dl (70-99)
[2024-02-01] MEDS: NOVOLOG FLEXPEN-LOW RESISTANCE 1 UNITS SC (17:16)
[2024-02-01] MEDS: LIPITOR 40 MG PO (20:52)
[2024-02-01] MEDS: BENADRYL 25 MG PO (21:13)
[2024-02-01 21:47] LABS: Glucose - Point of Care 164 mg/dl (70-99)
[2024-02-01] MEDS: COREG PO (22:54)
[2024-02-02] VITALS (11 sets, daily range): BP systolic 97–115; BP diastolic 55–80; PULSE 93–100; O2SAT 94–96; BMI 34.1
[2024-02-02 05:41] LABS: % Basophils 0.4 % (0-2); % Eosinophils 1.6 % (0-6); % Immature Granulocytes 0.2 % (0-0.5); % Lymphocytes 13.6 % (20.5-51.1); % Monocytes 13.8 % (1.7-9.3); % Neutrophils 70.4 % (42.2-75.2); Absolute Eosinophils 0.1 10^3/uL (0-0.7); Absolute Lymphocytes 0.8 10^3/uL (1.2-3.4); Absolute Monocytes 0.8 10^3/uL (0.1-0.6); Hemoglobin 8.2 g/dL (12.0-16.0); Mean Corp Hgb Conc. 30.4 g/dL (33.0-37.0); Mean Corpuscular Hgb 28.2 pg (27.0-31.0); Mean Corpuscular Volume 92.8 fL (81.0-99.0); Mean Platelet Volume 11.8 fL (7.4-10.4); Nucleated Red Blood Cells % 0 %; Platelet Count 152 10^3/uL (130-400); Red Blood Cell Count 2.91 10^6/uL (4.20-5.40); Red Cell Dist. Width 16.7 % (11.5-14.5); White Blood Cell Count 5.7 10^3/uL (4.8-10.8)
[2024-02-02 06:05] LABS: ALT (SGPT) 14 U/L (0-35); AST (SGOT) 28 U/L (14-36); Albumin 3.1 g/dl (3.5-5.0); Alkaline Phosphatase 91 U/L (38-126); Blood Urea Nitrogen 29 mg/dl (7-17); Calcium 8.3 mg/dl (8.4-10.2); Carbon Dioxide 40 mmol/L (22-30); Chloride 91 mmol/L (98-107); Estimated Creatinine Clearance 44 ml/min; Glucose 123 mg/dl (70-99); Potassium 4.4 mmol/L (3.5-5.1); Sodium 136 mmol/L (135-145); Total Bilirubin 0.9 mg/dl (0.2-1.3); eGFR > 60.00
[2024-02-02] MEDS: SYNTHROID 125 MCG PO (06:14)
[2024-02-02] MEDS: PROTONIX 40 MG PO (08:02)
[2024-02-02] MEDS: DESENEX/MITRAZOL/ZEASORB 1 APPLIC TOPICAL ×2 (08:02→19:55)
[2024-02-02] MEDS: LASIX 80 MG IV ×2 (08:07→17:02)
[2024-02-02] MEDS: COREG 3.125 MG PO ×2 (08:08→19:56)
[2024-02-02] MEDS: NOVOLOG FLEXPEN-LOW RESISTANCE SC ×2 (08:19→12:12)
[2024-02-02 08:22] LABS: Glucose - Point of Care 127 mg/dl (70-99)
--- NOTE | 2024-02-02 11:51 | CM ---
CM reviewed chart- remains in IMU
Bedside meeting with pt and dtr
Pt slept through meeting
SNF recommendations reviewed with dtr and PAC provided
In agreement- SNF referrals along with [facility] faxed via [facility] to [facility], [facility], [facility], and [facility] per dtr request
Role of [facility] in prior auth process reviewed with dtr
Discharge Disposition- SNF pending C auth
[2024-02-02 12:12] LABS: Glucose - Point of Care 145 mg/dl (70-99)
[2024-02-02] MEDS: KCL 20 MEQ PO (12:12)
[2024-02-02] MEDS: VITAMIN B-12 1000 MCG PO (12:13)
[2024-02-02] MEDS: VITAMIN E 400 UNITS PO (12:13)
[2024-02-02] MEDS: VITAMIN C 1000 MG PO (12:13)
[2024-02-02] MEDS: VITAMIN D3 (cholecalciferol) 50 MCG PO (12:13)
--- NOTE | 2024-02-02 12:47 | W.PN.PUL3 ---
Today's Communication / Plan
-
No significant changes although improved o2 requirements - now on 4L/min
IV lasix continued
Cardiology recommendations appreciated
Deconditioning, bedbound, likely all contributing factors
PT/OT --> rec'd skilled rehab
Assessment
-
83-year-old female with complex medical history including atrial fibrillation, hypertension, history of heart failure with moderate to severe mitral regurgitation, recurrent GI bleed requiring weekly transfusion, on 4 L of oxygen since 2022, who
presents with acute hypoxic respiratory insufficiency during the blood transfusion. Patient required 100% nonrebreather in the ED. Chest x-ray suggested bilateral interstitial changes. We are asked to comment on her pulmonary process 01/30/2024
Impression:
Acute hypoxic respiratory insufficiency
60% saturation on 4 L
Required 100% nonrebreather --> now back on 4L/min as of 02/02/2024
Suspected TRALI
Receiving blood transfusion during episode, cyanosis
Anemia
GAVE
Weekly transfusion. Follows with hematology (Demetrio)
History of HFmrEF
EF 40%
Mild mitral regurgitation
PA pressure 40, per echo 2022
History of pericardial effusion requiring urgent pericardiocentesis
Tamponade, December 2022
Cardiac arrest/ROSC
Aborted Watchman procedure
Conditions MANAGER COMPENSATION
COVID pneumonia in a vaccinated host 2020
AFib on chronic AC
CAD, coronary stent
Hypothyroidism
HTN
Hysterectomy
Atherosclerosis of aorta
Type 2 diabetes mellitus without complication
Iron deficiency anemia
Hx of gastric ulcer
Hyperlipidemia
Sick sinus syndrome s/p PPM
Ex-heavy cigarette smoker (20-30/day), quit >10 years ago
Pulmonary nodule on CT 11/04/22 - 7.1 mm part solid pulmonary nodule in the posterior segment of the right upper lobe
Sedentary
Limited DNR
Plan/recommendations
Patient with complex medical history
Events noted and confirmed through discussion with daughter by phone
Patient with episode of acute hypoxia during blood transfusion, lip cyanosis, significant symptoms. Required 100% nonrebreather
Chest x-ray with bilateral interstitial changes. Unchanged compared to a year ago but no interval chest x-ray to confirm. Films from 1 year ago during acute illness
CXR today (02/01) shows worsening bilateral interstitial fullness
Chest exam with few scattered crackles
2+ lower extremity edema noted, chronicity unclear
Per reviewing records, weight up 20-22 lbs since November 2023
Moving forward
Differential includes TRALI vs TACO. Difficult to differentiate between acute lung injury process from transfusion versus volume overload
Mild leukocytosis noted - now normalized
No documentation of fever
No clear evidence of infectious process, aspiration
When removing oxygen, she desaturated to 60% with minimal symptoms, no cyanosis, recovered upon return to 6 L, 97%
Reviewed outpatient records. 4 L is her baseline
Unfortunately, patient is 100% bedridden/sedentary, requires case management assistant with multiple aids for transfer out of bed to chair
Echo reviewed, preserved function/mod MR, mod-severe TR, est PAP 57 with dilated RV with RV systolic dysfunction
Given weight gain, not sure whether this may be volume overload
Lasix 80 IV BID ongoing
Would pursue possibility of volume overload for now versus TRALI
Hematology has been consulted
Reviewed long-term prognosis with daughter by phone.
Limited DNR is noted
If this continues to be an issue with regards to intolerance of volume and/or lung injury process, may need to transition discussion towards hospice
Daughter is aware of poor prognosis
Total time spent today was 35 minutes for this encounter. Time includes reviewing laboratory test/imaging results, reviewing pertinent medical records, obtaining and reviewing medical history, performing an appropriate exam, ordering medications,
tests and procedures. Time also includes documentation of this encounter, coordinating patient care and communicating with other healthcare professionals. Total time does not include separately billed tests performed on this date of service.
Diagnostic Data
CXR 01/29/24- There is moderate diffuse coarsening of the bronchovascular markings throughout both lungs in a pattern more suggestive of diffuse bilateral pulmonary interstitial inflammatory disease than pulmonary edema.
01/18/23- Bilateral pulmonary opacities, right greater than left, for which differential considerations include pulmonary edema or pneumonia. Small bilateral pleural effusions. Cardiomegaly.
ECHO 01/30/24- Normal LV size with low normal systolic function and no regional wall motion abnormalities. LVEF is 50 to 55% by visual estimation. Dilated RV with reduced systolic function.
Mild to moderate eccentric mitral regurgitation. Moderate to severe tricuspid regurgitation. Estimated pulmonary artery pressure of 57 mmHg. Assuming a right atrial pressure of 15 mmHg.
Compared to prior from December 28, 2021, MR is now mild to moderate from mild and there is now moderate to severe tricuspid regurgitation from mild with moderately elevated estimated PASP of 57 mmHg similar to previous (TTE 2021).
12/12/22- Limited follow-up study to reassess pericardial effusion. Mildly reduced left ventricular function. No clear evidence of pericardial effusion. Compared to previous echo from 12/11/2022 there is no evidence of recurrent pericardial effusion.
Subjective Data
-
Date of Service:
Date of Service: February 02, 2024
Chief Complaint: Pulmonary Follow Up
Subjective:
Seen today. Resting in bed no acute distress on 4 L/min nasal cannula saturating 98%, heart rate 78. Patient denies chest pain, headache, fevers or chills. Her shortness of breath is stable and it 'comes and goes.'
Review of Systems
General: Other (Negative unless mentioned above)
Objective Data
Data Reviewed
Vital Signs / I&O / Oxygen:
Vital Signs
Temp Pulse Resp BP Pulse Ox
98.2 F 81 23 104/64 100
02/02/24 03:21 02/02/24 10:02/02/24 10:01 02/02/24 10:02/02/24 11:03
Intake and Output
02/01/24 02/02/24 02/03/24
06:59 06:59 06:59
Intake Total 420 / 420 720 / 720 120 / 120
Output Total 75 / 75 1650 / 1650
Balance 345 / 345 -930 / -930 120 / 120
SaO2 100
Nasal Cannula flow liters per 4
minute
Physical Exam
General: Respiratory Distress (negative), Comfortable and Other (NAD, chronically ill appearing/weakness noted)
HEENT: Normocephalic, Anicteric and Other (dry MM, lip lesion)
Cardiovascular: Irregular Rhythm (Irregularly irregular) and Peripheral Edema (+2 lower extremity pitting edema bilaterally)
Respiratory: Wheeze (Negative), Crackles (Bilaterally), Rhonchi (Negative) and Non-Labored Respirations
GI: Soft, Non Distended and Non Tender
Neurology: Awake, Alert and Tremors (Negative)
Skin: Warm and Dry
Labs/Micro/Reports
Lab Data
02/02/24 05:16
02/02/24 05:16
--- NOTE | 2024-02-02 14:21 | W.PN.CD ---
Today's Communication / Plan
-
Continue Lasix 80 BID (increased on 01/31 from 40 mg)
Weight is up but BUN and CO2 suggest a diuresis
I just added a fluid restriction to her Na+ restriction
Impression / Plan
-
83-year-old female (known to Dr. 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
pericardial effusion so procedure aborted), SSS s/p 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
blue lips during blood transfusion as infusion center. She is better oriented today.
HFpEF - acute status post transfusion.
-Increased IV diuretics, standing weights
-fluid/sodium restrictions, daily weights, I&Os.
-intensive monitoring of lytes and renal function.
-Echo 01/30/2024: Normal LV size and function, no RWMA, EF 50-55%, dilated RV with reduced function, mild/moderate eccentric MR, mild/severe TR, PASP 57 mmHg.
Afib - permanent.
-Rapid rates initially, now rate controlled.
-Continue carvedilol.
-[id number] score of 7 (age, female, HTN, CHF, PAD/CAD, DM), previously on Eliquis but no longer on OAC 2/2 GAVE/recurrent GIB/SAMARA.
-Patient does not have a MARICARMEN occlusion device.
PPM - [employer], stable with normal function.
-Device is NOT MRI compatible.
Anemia - acute on chronic.
-Receives regular IV Venofer transfusions per heme as an outpatient.
-Heme following for possible TACO.
-follow H/H.
GAVR/GIB - managed by GI and heme.
-EGD 08/2022 gastric antral vascular ectasia w/o bleeding, hemostasis with APC.
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 Coagulation for hemostasis using argon plasma was successful.
-PPI BID.
CAD - prior stenting.
-stable w/o angina.
-continue medical therapy.
Valvular heart disease - mil/mod MR and mod/severe TR on echo.
-worse compared to previous.
Physical Exam
Vital Signs/Labs
Vital Signs
Temp Pulse Resp BP Pulse Ox
98.2 F 76 24 97/56 97
02/02/24 03:21 02/02/24 12:20 02/02/24 12:20 02/02/24 12:20 02/02/24 12:20
02/01/24 02/02/24 02/03/24
06:59 06:59 06:59
Actual Weight 79.5 kg 81.8 kg
02/02/24 05:16
02/02/24 05:16
PT 17.3 Sec (11.4-14.6) H 01/30/24 13:43
INR 1.43 01/30/24 13:43
APTT 30.7 Sec (23.4-35.0) 01/30/24 13:43
Magnesium 1.8 mg/dl (1.6-2.3) 01/29/24 12:56
01/29/24 01/30/24
12:57 22:48
[facility] Pept [id number]
Physical Exam
Constitutional: No acute distress
EENT: Anicteric
Cardiovascular: Rhythm & rate is regular and Pedal edema is absent
Respiratory: Respiratory effort normal and Crackles Present
GI: Soft and Distention absent
Neuro/Psych: Alert
Data Reviewed
-
Date of Service: February 02, 2024
--- NOTE | 2024-02-02 15:20 | PTCARENOTE ---
Patient is awake, alert today confused to time at times. Good appetite. Oxygen at 4 liters via nasal cannula, pulse ox 100%. Chest xray completed today. IV Lasix 80mg administered, voided 700 kayla urine, using purewick. Pateint turne every 2 hours.
Very weak, unable to lift legs off of bed to move in bed. PT following.
--- NOTE | 2024-02-02 16:26 | W.PN.HOSP.TC ---
Addendum entered and electronically signed by Jesus Lyle MD 02/02/24 20:32:
Attending Addendum-
I saw and evaluated the patient. I reviewed the resident�s note and agree with findings and plan as documented in the resident�s note. Patient seen with daughter present. Continues to feel SOB but more of a chronic issue. Full 12 point ROS reviewed
and negative except as documented Exam: Vitals reviewed in chart GEN-mild resp distress heart RRR SM @ apex lungs crackles at bases abd soft LE 4+ pitting edema b/l
# Acute on chronic hypoxic and hypercarbic respiratory failure
- h/o COVID
- from TACO-transfusion associated circulatory overload and acute CHF exacerbation
- Oxygenation stable on baseline 4 L.
- cont IV lasix for diuresis
- Compensated chronic metabolic alkalosis in setting of chronic respiratory acidosis due to chronic respiratory failure
# Chronic iron deficiency anemia
- transfusion dependent. Suspect related to chronic GI blood loss, history of GAVE. Hemoglobin averages around 8.
- hb 8.2
- monitor daily CBC
- appreciate heme input
- cont Protonix
# Acute on chronic heart failure midrange EF -
- Echocardiogram 01/29 shows LVEF 50 to 55%, dilated RV with reduced systolic function, mild to moderate MR, moderate to severe TR.
- cont IV Lasix dose to 80 mg twice daily
- appreciate cards input
- monitor strict I and O and daily weights
- monitor BMP daily
# Hyponatremia
- resolved
# Permanent atrial fibrillation
-not on anticoagulation due to chronic anemia
-monitor closely
# DM2 without hyperglycemia
- Hemoglobin A1c 5.1%, unreliable in the setting of chronic anemia.
- cont Use low resistance insulin scale.
- monitor accuchecks closely
- to start oral meds on DC as OP possibly SGLT-1
# SSS-Permanent pacemaker
# CAD- h/o stent
#Hyperlipidemia- cont atorvastatin
#Hypothyroidism-cont levothyroxine
Limited DNR
Dispo will likely need SNF on DC- PT OT
Time spent coordinating care, review of plan of care with resident, personally reviewed records in EMR, med rec, consults, notes, labs, radiology, d/w nursing project coordinator and POA � 54 mins
Original Note:
Today's Communication/Plan
-
continue lasix 80mg
continue with Oxygen via NC 4L
Deconditioning, bedbound, likely all contributing factors
Fluid restriction and Na+ restriction
Assessment / Plan
Assessment / Plan
83-year-old female presents with acute on chronic hypoxic respiratory failure - Suspect most likely diagnosis is transfusion associated circulatory overload given improvement with diuresis, elevated BNP. Oxygenation stable on 4L which is baseline
that she uses at home.
Chest x-ray findings 1. Interstitial prominence, which may represent cardiogenic or noncardiogenic pulmonary edema.
2. Small bilateral pleural effusions.
# TACO
- continue IV lasix 80mg BID
- continue oxygen via NC ( 4L)
# Chronic iron deficiency anemia
-transfusion dependent. Receives regular IV Venofer transfusions per heme as an outpatient. Suspect related to chronic GI blood loss, history of GAVE.
- Hemoglobin averages around 8. Currently 8.2 and stable. Monitor for now.
- recommended an additional dose of diuretics with every transfusion
# Acute on chronic heart failure midrange EF - daughter states that she has gained 25 pounds in the past year. Rising BNP concerning, not sure if weights are accurate but supposedly her weight is going up. Echocardiogram shows LVEF 50 to 55%,
dilated RV with reduced systolic function, mild to moderate MR, moderate to severe TR. continue Increased IV Lasix dose to 80 mg twice daily given rising weights.
# Hyponatremia
- resolved 136
- continue to monitor
#Permanent atrial fibrillation
- continue carvedilol
-not on anticoagulation due to chronic anemia, chronic blood loss.
-Permanent pacemaker-Device is NOT MRI compatible.
#DM2 with hyperglycemia -
Glucose 229 this morning. Does not appear to be on diabetes medications at home. Hemoglobin A1c 5.1%, unreliable in the setting of chronic anemia. Use low resistance insulin scale.
#Valvular heart disease - mil/mod MR and mod/severe TR on echo.
-worse compared to previous.
Limited DNR
PT/OT
Anticipated Discharge: > 48 hours
Subjective/Interval History
-
Date of Service: February 02, 2024
Objective Data
-
Labs:
Laboratory Results
02/02/24
05:16
WBC 5.7
Hgb 8.2 L
Hct 27.0 L
Plt Count 152
Sodium 136
Potassium 4.4
Chloride 91 L
Carbon Dioxide 40 H
BUN 29 H
Creatinine 0.9
Glucose 123 H
Calcium 8.3 L
Total Bilirubin 0.9
AST 28
ALT 14
Alkaline Phosphatase 91
Vital Signs:
Vital Signs
Temp Pulse Resp BP Pulse Ox
98.2 F 80 23 102/63 97
02/02/24 11:15 02/02/24 14:01 02/02/24 14:01 02/02/24 14:01 02/02/24 14:01
I&O
02/01/24 02/02/24 02/03/24
06:59 06:59 06:59
Intake Total 420 / 420 720 / 720 240 / 240
Output Total 75 / 75 1650 / 1650 700 / 700
Balance 345 / 345 -930 / -930 -460 / -460
Review of Systems
-
History Source: Patient and Other (Daughter- POA)
Cardiac: Denies Chest Pain
Abdomen/GI: Denies Nausea or Vomiting
Neuro: Denies Headache
Physical Exam
-
General: Comfortable
HEENT: Normocephalic and Atraumatic
Respiratory: Crackles (Bilateral)
Cardiac: Regular Rhythm and S1/S2
Neuro: Awake, Alert, Oriented and AO x 3
Psych: Calm
Data Reviewed
-
Labs: Labs Reviewed by me and Discussed with Patient
--- NOTE | 2024-02-02 16:31 | W.PN.ONC2 ---
Today's Communication / Plan
-
daily CBC
Impression
Impression
- acute respiratory failure during transfusion
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
- iron deficiency anemia
- CHF
Plan
Plan
- transfusion reaction panel immediately after event negative GLORIA or new antibodies. although T bili transiently kali to 2.7 it has now normalized and there is low suspicion for active hemolysis with stable hgb. coags overall normal with mild
elevation in d-dimer.
- Question of whether event represented TRALI vs. transfusion-associated circulatory overload as she is obvious high risk and has had issues with post transfusion volume overload in past. She examines as having volume overload however went into
transfusion w/ LE edema. CXR more suggestive for inflammatory process then pulmonary edema. No blood gas on presentation however per report pt exhibited signs of hypoxemia with purple lips etc.
- BNP ordered as this commonly is high in TACO and less so in TRALI. Echo without apical or global akinesis, notes increased size of RV, worsening tricuspid regurg. BNP not elevated
- pt was given steroids (suspect cause for new WBC elevation) as well as IV lasix and respiratory O2 requirements improved, now on 5L NC ( on 4 at home).
- if possible try to limit transfusions at this time, only if < 7.0 g/dl and would administer slow with additional diuretic support. Per pathology, if blood products needed blood bank aware to use male donor products due to lower risk for TRALI.
Subjective/Objective
Chief Complaint
SOB
Subjective
denies acute pain
Vital Signs:
Vital Signs
Temp Pulse Resp BP Pulse Ox
98.2 F 80 23 102/63 97
02/02/24 11:15 02/02/24 14:01 02/02/24 14:01 02/02/24 14:01 02/02/24 14:01
Lab Results:
Laboratory Data
WBC 5.7 10^3/uL (4.8-10.8) 02/02/24 05:16
Hgb 8.2 g/dL (12.0-16.0) L 02/02/24 05:16
Plt Count 152 10^3/uL (130-400) 02/02/24 05:16
PT 17.3 Sec (11.4-14.6) H 01/30/24 13:43
INR 1.43 01/30/24 13:43
APTT 30.7 Sec (23.4-35.0) 01/30/24 13:43
eGFR > 60.00 02/02/24 05:16
Physical Exam
no distress, frail, chronically ill
lungs diminished b/l bases, rales
CV irreg, ppm
GI soft
Ext +2 LE pitting edema
Review of Systems
Review of Systems
review of systems notable for subjective, otherwise negative
poor historian
[2024-02-02 16:52] LABS: Glucose - Point of Care 229 mg/dl (70-99)
[2024-02-02] MEDS: NOVOLOG FLEXPEN-LOW RESISTANCE 2 UNITS SC (17:02)
[2024-02-02] MEDS: DULCOLAX 5 MG PO (17:56)
[2024-02-02] MEDS: LIPITOR 40 MG PO (19:55)
[2024-02-02 21:40] LABS: Glucose - Point of Care 212 mg/dl (70-99)
[2024-02-02] MEDS: BENADRYL 25 MG PO (22:35)
[2024-02-03] VITALS (9 sets, daily range): BP systolic 91–123; BP diastolic 45–82; BMI 32.5
[2024-02-03] MEDS: DULCOLAX 10 MG RECTAL (02:57)
--- NOTE | 2024-02-03 03:02 | PTCARENOTE ---
Addendum entered by Arash Ross RN 02/03/24 04:26:
pt was able to have large formed BM after suppository was given.
Original Note:
pt with c/o of gas pain- abdomen round, distended, positive bowel sounds, soft. pt has not had a BM since she has been in the hospital. notified covering COLOR WORKER- pt given Dulcolax suppository. pt monitor response.
[2024-02-03] MEDS: SYNTHROID 125 MCG PO (04:22)
[2024-02-03 04:26] LABS: Venous Blood Gas B.E. 17.6 mmol/L (-4 to +4); Venous Blood Gas HCO3 44.1 mmol/L (22-27); Venous Blood Gas pCO2 65 mmHg (35-48); Venous Blood Gas pH 7.44 (7.32-7.43); Venous Blood Gas pO2 162 mmHg (30-50)
[2024-02-03 05:10] LABS: % Basophils 0.2 % (0-2); % Eosinophils 1.5 % (0-6); % Immature Granulocytes 0.4 % (0-0.5); % Lymphocytes 11.8 % (20.5-51.1); % Monocytes 12.7 % (1.7-9.3); % Neutrophils 73.4 % (42.2-75.2); Absolute Eosinophils 0.1 10^3/uL (0-0.7); Absolute Lymphocytes 0.6 10^3/uL (1.2-3.4); Absolute Monocytes 0.7 10^3/uL (0.1-0.6); Hematocrit 27.8 % (37.0-47.0); Hemoglobin 8.2 g/dL (12.0-16.0); Mean Corp Hgb Conc. 29.5 g/dL (33.0-37.0); Mean Corpuscular Hgb 28.2 pg (27.0-31.0); Mean Corpuscular Volume 95.5 fL (81.0-99.0); Nucleated Red Blood Cells % 0.7 %; Platelet Count 152 10^3/uL (130-400); Red Blood Cell Count 2.91 10^6/uL (4.20-5.40); Red Cell Dist. Width 16.9 % (11.5-14.5); White Blood Cell Count 5.4 10^3/uL (4.8-10.8)
[2024-02-03 05:35] LABS: ALT (SGPT) 15 U/L (0-35); AST (SGOT) 35 U/L (14-36); Albumin 3.4 g/dl (3.5-5.0); Alkaline Phosphatase 95 U/L (38-126); Blood Urea Nitrogen 25 mg/dl (7-17); Calcium 8.3 mg/dl (8.4-10.2); Chloride 90 mmol/L (98-107); Estimated Creatinine Clearance 56 ml/min; Glucose 138 mg/dl (70-99); Potassium 4.1 mmol/L (3.5-5.1); Sodium 135 mmol/L (135-145); Total Bilirubin 1.1 mg/dl (0.2-1.3); Total Protein 6.5 g/dl (6.3-8.2); eGFR > 60.00
[2024-02-03 05:51] LABS: Carbon Dioxide 36 mmol/L (22-30)
[2024-02-03 07:53] LABS: Glucose - Point of Care 167 mg/dl (70-99)
[2024-02-03] MEDS: NOVOLOG FLEXPEN-LOW RESISTANCE 1 UNITS SC ×3 (08:06→17:48)
[2024-02-03] MEDS: PROTONIX 40 MG PO (08:08)
[2024-02-03] MEDS: COREG 3.125 MG PO ×2 (08:08→21:09)
[2024-02-03] MEDS: LASIX 80 MG IV ×2 (08:11→17:01)
--- NOTE | 2024-02-03 08:38 | W.PN.HOSP.TC ---
Addendum entered and electronically signed by Jesus Lyle MD 02/03/24 21:23:
Attending Addendum-
I saw and evaluated the patient. I reviewed the resident�s note and agree with findings and plan as documented in the resident�s note. Overnight had episode of sob and o2 was increased to 5L. Also monique nursing had large BM. Patient complained of LLQ
post BMP. Sill present but controlled. No N/V. Full 12 point ROS reviewed and negative except as documented Exam: Vitals reviewed in chart GEN-NAD heart RRR SM @ apex lungs- decreasd BS @ bases abd soft TTP LLQ no rebound/guarding pos BS LE 3+
pitting edema b/l
# Acute on chronic hypoxic and hypercarbic respiratory failure
- h/o COVID
- from TACO-transfusion associated circulatory overload and AE HFpEF
- Oxygenation now stable on baseline 4 L.
- cont IV lasix for diuresis
- VBG reviewed
- Primary metabolic alkalosis likely secondary to diruesis
- appreciate pulm input
# Chronic iron deficiency anemia
- transfusion dependent. Suspect related to chronic GI blood loss, history of GAVE. Hemoglobin averages around 8.
- hb 8.2
- monitor daily CBC
- appreciate heme input
- cont Protonix
# Acute on chronic HFpEF -
- Echocardiogram 01/29 shows LVEF 50 to 55%, dilated RV with reduced systolic function, mild to moderate MR, moderate to severe TR.
- cont IV Lasix dose 80 mg twice daily
- appreciate cards input
- monitor strict I and O and daily weights
- weight down 4kgs
- monitor BMP daily
# Hyponatremia
- resolved
# Abdominal Pain
- unclear etiology
- ordered abd KUB- personally reviewed no sig acute abnormalities
- cont to monitor check CT A/P if persists
# AMAYA
- resolved
- monitor closely while on Lasix
- repeat BMP in am
# Permanent atrial fibrillation
-not on anticoagulation due to chronic anemia
-monitor closely
# DM2 without hyperglycemia
- Hemoglobin A1c 5.1%, unreliable in the setting of chronic anemia.
- cont Use low resistance insulin scale.
- monitor accuchecks closely
- to start oral meds on DC as OP
# SSS-Permanent pacemaker
# CAD- h/o stent
#Hyperlipidemia- cont atorvastatin
#Hypothyroidism-cont levothyroxine
Limited DNR
Dispo - SNF on DC PT assessment done
Time spent coordinating care, review of plan of care with resident, personally reviewed records in EMR, med rec, consults, notes, labs, radiology, d/w nursing� 52 mins
Original Note:
Today's Communication/Plan
-
- Continue Iv lasix 80mgBID
- Recheck labs(cbc)
- Xray Abdomen
- continue with Oxygen via NC 4L
Assessment / Plan
Assessment / Plan
83-year-old female presents with acute on chronic hypoxic respiratory failure - Suspect most likely diagnosis is transfusion associated circulatory overload given improvement with diuresis, elevated BNP. Oxygenation stable on 4L which is baseline
that she uses at home.
# Acute on chronic hypoxic and hypercarbic respiratory failure
- h/o COVID
- from TACO-transfusion associated circulatory overload and acute CHF exacerbation
- Oxygenation stable on baseline 4 L.
- cont IV lasix 80mg for diuresis
- appreciate cardio input
- Compensated chronic metabolic alkalosis in setting of chronic respiratory acidosis due to chronic respiratory failure.
# AMAYA
- resolved
- prerenal likely due to fluid restriction vs effects of IV lasix
# Abdominal pain
- abdomen Xray clear
- monitor for 24 hrs.
- t/c CT vs surgical consult.
# Chronic iron deficiency anemia
- transfusion dependent. Suspect related to chronic GI blood loss, history of GAVE. Hemoglobin averages around 8.
- hb 8.2
- monitor daily CBC
- cont Protonix
# Acute on chronic heart failure midrange EF -
- Echocardiogram 01/29 shows LVEF 50 to 55%, dilated RV with reduced systolic function, mild to moderate MR, moderate to severe TR.
- cont IV Lasix dose to 80 mg twice daily
- appreciate cards input
- monitor strict I and O and daily weights
- monitor BMP daily
# Hyponatremia
- resolved,135 mmol/L on 02/03/24
# Permanent atrial fibrillation
- not on anticoagulation due to chronic anemia
- monitor closely
- continue carvedilol
# DM2 without hyperglycemia
- Hemoglobin A1c 5.1%, unreliable in the setting of chronic anemia.
- cont Use low resistance insulin scale.
- monitor accuchecks closely
- to start oral meds with pcp fu
# SSS-Permanent pacemaker
# CAD- h/o stent
#Hyperlipidemia- cont atorvastatin
#Hypothyroidism-cont levothyroxine
Limited DNR
Dispo will likely need SNF on DC- PT OT
Bowel regimen
Anticipated Discharge: > 48 hours
Subjective/Interval History
-
Date of Service: February 03, 2024
Objective Data
-
Labs:
Laboratory Results
02/03/24
04:17
WBC 5.4
Hgb 8.2 L
Hct 27.8 L
Plt Count 152
Sodium 135
Potassium 4.1
Chloride 90 L
Carbon Dioxide 36 H
BUN 25 H
Creatinine 0.7
Glucose 138 H
Calcium 8.3 L
Total Bilirubin 1.1
AST 35
ALT 15
Alkaline Phosphatase 95
Vital Signs:
Vital Signs
Temp Pulse Resp BP Pulse Ox
98.0 F 86 20 108/59 86
02/03/24 07:20 02/03/24 08:11 02/03/24 06:24 02/03/24 08:11 02/03/24 06:24
I&O
02/02/24 02/03/24 02/04/24
06:59 06:59 06:59
Intake Total 720 / 720 240 / 240
Output Total 1650 / 1650 1300 / 1300
Balance -930 / -930 -1060 / -1060
Review of Systems
-
History Source: Patient
Constitutional: Reports Fatigue
Respiratory: Reports Trouble Breathing
Abdomen/GI: Reports Abdominal Pain
Genitourinary: Reports No Symptoms
Neuro: Denies Headache or Lightheadedness
Physical Exam
-
General: Appears Chronically Ill
HEENT: Normocephalic and Atraumatic
Respiratory: Crackles (b/l bases) and Decreased Breath Sounds
Cardiac: Irregular Rhythm
GI: Tender (LLQ, Absent rebound tenderness, diminshed bowel sounds)
Musculoskeletal: No Edema, Edema, Right Lower Extrem and Edema, Left Lower Extrem
Skin: Warm and Dry
Neuro: Awake, Alert and Oriented
Psych: Calm
Data Reviewed
-
Diagnostic Radiology: Report Reviewed by me and Discussed with Physician
Labs: Labs Reviewed by me, Discussed with Physician and Discussed with Patient
--- NOTE | 2024-02-03 09:19 | W.PN.CD ---
Today's Communication / Plan
-
-Continue Lasix 80 mg IV BID.
Impression / Plan
-
83-year-old female (known to Dr. 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
pericardial effusion so procedure aborted), SSS s/p 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
blue lips during blood transfusion as infusion center. She is better oriented today.
HFpEF - acute status post transfusion.
-Continue Lasix 80 mg IV BID.
-fluid/sodium restrictions, daily weights, I&Os.
-intensive monitoring of lytes and renal function.
-Echo 01/30/2024: Normal LV size and function, no RWMA, EF 50-55%, dilated RV with reduced function, mild/moderate eccentric MR, mild/severe TR, PASP 57 mmHg.
Afib - permanent.
-Rapid rates initially, now rate controlled.
-Continue carvedilol.
-[id number] score of 7 (age, female, HTN, CHF, PAD/CAD, DM), previously on Eliquis but no longer on OAC 2/2 GAVE/recurrent GIB/SAMARA.
-Patient does not have a MARICARMEN occlusion device.
PPM - [employer], stable with normal function.
-Device is NOT MRI compatible.
Anemia - acute on chronic.
-Receives regular IV Venofer transfusions per heme as an outpatient.
-Heme following for possible TACO.
-follow H/H.
GAVR/GIB - managed by GI and heme.
-EGD 08/2022 gastric antral vascular ectasia w/o bleeding, hemostasis with APC.
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 Coagulation for hemostasis using argon plasma was successful.
-PPI BID.
CAD - prior stenting.
-Remains stable w/o angina.
-continue medical therapy.
Valvular heart disease - mil/mod MR and mod/severe TR on echo.
-worse compared to previous.
-Lasix as above for volume management.
Physical Exam
Vital Signs/Labs
Vital Signs
Temp Pulse Resp BP Pulse Ox
98.0 F 86 20 108/59 93
02/03/24 07:20 02/03/24 08:11 02/03/24 06:24 02/03/24 08:11 02/03/24 09:04
02/02/24 02/03/24 02/04/24
06:59 06:59 06:59
Actual Weight 81.8 kg 77.9 kg
02/03/24 04:17
02/03/24 04:17
PT 17.3 Sec (11.4-14.6) H 01/30/24 13:43
INR 1.43 01/30/24 13:43
APTT 30.7 Sec (23.4-35.0) 01/30/24 13:43
Magnesium 1.8 mg/dl (1.6-2.3) 01/29/24 12:56
01/29/24 01/30/24
12:57 22:48
Ozr-W-Vldqakscirx Pept 2560 6150
Physical Exam
Constitutional: No acute distress and Comfortable
EENT: Anicteric
Cardiovascular: Rhythm/rate is irregular, Pedal edema present (3+ bilateral pitting), Systolic murmur present (3/6) and S1S2 is normal
Respiratory: Respiratory effort normal, Wheeze Absent and Rhonchi Present (Bibasilar rhonchi)
GI: Soft
Neuro/Psych: Alert and Oriented
Other: Skin (Warm, dry)
Data Reviewed
-
Date of Service: February 03, 2024
EKG: Tracing Personally Visualized and interpreted (Telemetry: A-fib)
Echo: Tracing Personally Visualized and interpreted (EF 55%, moderate to severe TR)
--- NOTE | 2024-02-03 12:18 | W.PN.PUL3 ---
Today's Communication / Plan
-
No significant changes although improved O2 requirements - now on 4L/min
IV lasix continued -maintain net negative fluid balance as tolerated
Cardiology recommendations appreciated
Deconditioning, bedbound, likely all contributing factors
PT/OT --> rec'd skilled rehab
Assessment
-
83-year-old female with complex medical history including atrial fibrillation, hypertension, history of heart failure with moderate to severe mitral regurgitation, recurrent GI bleed requiring weekly transfusion, on 4 L of oxygen since 2022, who
presents with acute hypoxic respiratory insufficiency during the blood transfusion. Patient required 100% nonrebreather in the ED. Chest x-ray suggested bilateral interstitial changes. We are asked to comment on her pulmonary process 01/30/2024
Impression:
Acute hypoxic respiratory insufficiency
60% saturation on 4 L
Required 100% nonrebreather --> now back on 4L/min as of 02/02/2024
Suspected TACO vs TRALI (suspect the former)
Receiving blood transfusion during episode, cyanosis
Anemia
GAVE
Weekly transfusion. Follows with hematology (Demetrio)
History of HFmrEF
EF 40%
Mild mitral regurgitation
PA pressure 40, per echo 2022
History of pericardial effusion requiring urgent pericardiocentesis
Tamponade, December 2022
Cardiac arrest/ROSC
Aborted Watchman procedure
Conditions BOX TRUCK DRIVER
COVID pneumonia in a vaccinated host 2020
AFib on chronic AC
CAD, coronary stent
Hypothyroidism
HTN
Hysterectomy
Atherosclerosis of aorta
Type 2 diabetes mellitus without complication
Iron deficiency anemia
Hx of gastric ulcer
Hyperlipidemia
Sick sinus syndrome s/p PPM
Ex-heavy cigarette smoker (20-30/day), quit >10 years ago
Pulmonary nodule on CT 11/04/22 - 7.1 mm part solid pulmonary nodule in the posterior segment of the right upper lobe
Sedentary
Limited DNR
Plan/recommendations
Patient with complex medical history
Events noted and confirmed through discussion with daughter by phone
Patient with episode of acute hypoxia during blood transfusion, lip cyanosis, significant symptoms. Required 100% nonrebreather
Chest x-ray with bilateral interstitial changes. Unchanged compared to a year ago but no interval chest x-ray to confirm. Films from 1 year ago during acute illness
CXR on 02/01 shows worsening bilateral interstitial fullness
Chest exam with few scattered crackles
2+ lower extremity edema noted, chronicity unclear
Per reviewing records, weight up 20-22 lbs since November 2023
Moving forward
Differential includes TRALI vs TACO. Difficult to differentiate between acute lung injury process from transfusion versus volume overload
Mild leukocytosis noted - now normalized
No documentation of fever
No clear evidence of infectious process, aspiration
When removing oxygen, she desaturated to 60% with minimal symptoms, no cyanosis, recovered upon return to 6 L, 97%
Reviewed outpatient records. 4 L is her baseline
Unfortunately, patient is 100% bedridden/sedentary, requires starch treating assistant with multiple aids for transfer out of bed to chair
Echo reviewed, preserved function/mod MR, mod-severe TR, est PAP 57 with dilated RV with RV systolic dysfunction
Given weight gain, not sure whether this may be volume overload
Lasix 80 IV BID ongoing
Hematology has been consulted
Limited DNR is noted
If this continues to be an issue with regards to intolerance of volume and/or lung injury process, may need to transition discussion towards hospice
Daughter is aware of poor prognosis
Total time spent today was 35 minutes for this encounter. Time includes reviewing laboratory test/imaging results, reviewing pertinent medical records, obtaining and reviewing medical history, performing an appropriate exam, ordering medications,
tests and procedures. Time also includes documentation of this encounter, coordinating patient care and communicating with other healthcare professionals. Total time does not include separately billed tests performed on this date of service.
Diagnostic Data
CXR 02/02/2024:
1. Interstitial prominence, which may represent cardiogenic or noncardiogenic pulmonary edema.
2. Small bilateral pleural effusions.
CXR 01/29/24- There is moderate diffuse coarsening of the bronchovascular markings throughout both lungs in a pattern more suggestive of diffuse bilateral pulmonary interstitial inflammatory disease than pulmonary edema.
01/18/23- Bilateral pulmonary opacities, right greater than left, for which differential considerations include pulmonary edema or pneumonia. Small bilateral pleural effusions. Cardiomegaly.
ECHO 01/30/24- Normal LV size with low normal systolic function and no regional wall motion abnormalities. LVEF is 50 to 55% by visual estimation. Dilated RV with reduced systolic function.
Mild to moderate eccentric mitral regurgitation. Moderate to severe tricuspid regurgitation. Estimated pulmonary artery pressure of 57 mmHg. Assuming a right atrial pressure of 15 mmHg.
Compared to prior from December 28, 2021, MR is now mild to moderate from mild and there is now moderate to severe tricuspid regurgitation from mild with moderately elevated estimated PASP of 57 mmHg similar to previous (TTE 2021).
12/12/22- Limited follow-up study to reassess pericardial effusion. Mildly reduced left ventricular function. No clear evidence of pericardial effusion. Compared to previous echo from 12/11/2022 there is no evidence of recurrent pericardial effusion.
Subjective Data
-
Date of Service:
Date of Service: February 03, 2024
Chief Complaint: Pulmonary Follow Up
Subjective:
Patient seen and evaluate today. No acute events reported overnight. She is net -1060 mL over the last 24 hours. Heart rate 79 during my evaluation with SpO2 92% on 4 L/min nasal cannula. She denies chest pain, headache, abdominal pain, fevers
or chills.
Review of Systems
General: Other (Negative unless mentioned above)
Objective Data
Data Reviewed
Vital Signs / I&O / Oxygen:
Vital Signs
Temp Pulse Resp BP Pulse Ox
98.0 F 86 20 108/59 93
02/03/24 07:20 02/03/24 08:11 02/03/24 06:24 02/03/24 08:11 02/03/24 09:04
Intake and Output
02/02/24 02/03/24 02/04/24
06:59 06:59 06:59
Intake Total 720 / 720 240 / 240 100 / 100
Output Total 1650 / 1650 1300 / 1300
Balance -930 / -930 -1060 / -1060 100 / 100
SaO2 93
Nasal Cannula flow liters per 4
minute
Physical Exam
General: Respiratory Distress (negative), Comfortable and Other (NAD, chronically ill appearing/weakness noted)
HEENT: Normocephalic, Anicteric and Other (dry MM, lip lesion)
Cardiovascular: Irregular Rhythm (Irregularly irregular) and Peripheral Edema (+2 lower extremity pitting edema bilaterally)
Respiratory: Wheeze (Negative), Crackles (Bilaterally), Rhonchi (Negative) and Non-Labored Respirations
GI: Soft, Non Distended and Non Tender
Neurology: Awake, Alert and Tremors (Negative)
Skin: Warm and Dry
Labs/Micro/Reports
Lab Data
02/03/24 04:17
02/03/24 04:17
--- NOTE | 2024-02-03 12:32 | PN.CDI ---
CDI
- -
CDI:
Physician Documentation Request
Admit Date: 01/29/24 16:58
Dear Doctor Valdo,
Please review the following and provide your response in the progress notes.
Clinical Indicators:
Pt admitted with TACO vs TRALI /Acte Hypoxic Respiratory Failure
There is potentially conflicting documentation in the record regarding the type and acuity of CHF
Documented per progress notes 01/30 -02/01 , ' Acute on chronic heart failure midrange EF - Echocardiogram 01/29 shows LVEF 50 to 55%, dilated RV with reduced systolic function, mild to moderate MR, moderate to severe TR. cont IV Lasix dose to 80 mg
twice daily ...'
Cardiology notes/consult, ' HFpEF - acute status post transfusion....-Echo 01/30/2024: Normal LV size and function, no RWMA, EF 50-55%, dilated RV with reduced function, mild/moderate eccentric MR, mild/severe TR, PASP 57 mmHg ...'
Please provide the type/acuity of CHF that is being treated :
Acute Diastolic CHF
Acute on Chronic Systolic CHF
Other ( please specify)
Use of terms such as suspected, likely, concern for, or probable (associated with a specific diagnosis that is being evaluated, monitored, or treated as if it exists) are acceptable and can be coded in the inpatient setting, when documented at the
time of discharge.
Thank you,
Margie Mortensen RN
CDI Specialist
[place] [facility]
Please use your independent medical judgment in providing your response.
--- NOTE | 2024-02-03 12:41 | PN.CDI ---
CDI
- -
CDI:
Physician Documentation Request
Admit Date: 01/29/24 16:58
Dear Doctor Valdo ,
Please review the following and provide your response in the progress notes.
Clinical Indicators:
Pt admitted with TACO vs TRALI /Acte Hypoxic Respiratory Failure
Renal functions are a below/ Pt has been on IV Lasix
01/29/24 01/30/24 01/31/24
12:56 05:24 05:38
Creatinine 0.7 0.8 1.1 H
02/01/24 02/02/24 02/03/24
04:26 05:16 04:17
Creatinine 1.0 0.9 0.7
Clarify which of the following accurately represents the patient's renal status:
AMAYA
Abnormal lab value only
Other (please specify)
Criteria for AMAYA*
1 Increase in serum creatinine by > or = to 0.3 mg/dL (> or = to 26.5 micromol/L) within 48 hours, OR
2 Increase in serum creatinine to > or = to 1.5 times baseline, which is known or presumed to have occurred within 7 days, OR
3 Urine volume < 0.5 nL/kg/hour for six hours
Use of terms such as suspected, likely, concern for, or probable (associated with a specific diagnosis that is being evaluated, monitored, or treated as if it exists) are acceptable and can be coded in the inpatient setting, when documented at the
time of discharge.
Thank you,
Margie Mortensen RN
CDI Specialist
[facility]
Please use your independent medical judgment in providing your response.
*Source: Kidney Disease: Improving Global Outcomes (KDIGO) 2012
[2024-02-03] MEDS: DESENEX/MITRAZOL/ZEASORB 1 APPLIC TOPICAL ×2 (13:04→21:10)
[2024-02-03] MEDS: VITAMIN B-12 1000 MCG PO (13:04)
[2024-02-03] MEDS: VITAMIN C 1000 MG PO (13:04)
[2024-02-03] MEDS: VITAMIN D3 (cholecalciferol) 50 MCG PO (13:05)
[2024-02-03] MEDS: VITAMIN E 400 UNITS PO (13:05)
[2024-02-03] MEDS: KCL 20 MEQ PO (13:06)
[2024-02-03 13:11] LABS: Glucose - Point of Care 156 mg/dl (70-99)
--- NOTE | 2024-02-03 14:07 | PTCARENOTE ---
Patient complaining of left lower quadrant abdomen tenderness this morning. Abdomen round,soft, normal bowel sounds, no nausea or vomiting. Patient had large bowel movement last night after [employer] adminsitered. Dr. Lyle norified. New orders
pending.
[2024-02-03] MEDS: MIRALAX 17 GRAMS PO (17:01)
[2024-02-03 17:48] LABS: Glucose - Point of Care 190 mg/dl (70-99)
[2024-02-03] MEDS: COLACE 100 MG PO (21:10)
[2024-02-03] MEDS: LIPITOR 40 MG PO (21:10)
[2024-02-03 21:22] LABS: Glucose - Point of Care 227 mg/dl (70-99)
[2024-02-04] VITALS (13 sets, daily range): BP systolic 99–150; BP diastolic 45–81; O2SAT 95; BMI 32.6
[2024-02-04] MEDS: BENADRYL 25 MG PO (00:03)
[2024-02-04 04:02] LABS: % Basophils 0.4 % (0-2); % Eosinophils 1.6 % (0-6); % Immature Granulocytes 0.4 % (0-0.5); % Lymphocytes 11.9 % (20.5-51.1); % Neutrophils 72.7 % (42.2-75.2); Absolute Eosinophils 0.1 10^3/uL (0-0.7); Absolute Lymphocytes 0.7 10^3/uL (1.2-3.4); Absolute Monocytes 0.7 10^3/uL (0.1-0.6); Hematocrit 27.6 % (37.0-47.0); Hemoglobin 8.4 g/dL (12.0-16.0); Mean Corp Hgb Conc. 30.4 g/dL (33.0-37.0); Mean Corpuscular Hgb 28.1 pg (27.0-31.0); Mean Corpuscular Volume 92.3 fL (81.0-99.0); Mean Platelet Volume 11.1 fL (7.4-10.4); Nucleated Red Blood Cells % 0 %; Platelet Count 161 10^3/uL (130-400); Red Blood Cell Count 2.99 10^6/uL (4.20-5.40); Red Cell Dist. Width 17.1 % (11.5-14.5); White Blood Cell Count 5.5 10^3/uL (4.8-10.8)
[2024-02-04 04:34] LABS: ALT (SGPT) 13 U/L (0-35); AST (SGOT) 25 U/L (14-36); Albumin 3.2 g/dl (3.5-5.0); Alkaline Phosphatase 90 U/L (38-126); Blood Urea Nitrogen 18 mg/dl (7-17); Calcium 8.2 mg/dl (8.4-10.2); Chloride 89 mmol/L (98-107); Estimated Creatinine Clearance 56 ml/min; Glucose 147 mg/dl (70-99); Potassium 3.5 mmol/L (3.5-5.1); Sodium 137 mmol/L (135-145); Total Protein 6.4 g/dl (6.3-8.2); eGFR > 60.00
[2024-02-04 04:45] LABS: Carbon Dioxide 44 mmol/L (22-30)
[2024-02-04] MEDS: SYNTHROID 125 MCG PO (04:57)
--- NOTE | 2024-02-04 05:52 | PTCARENOTE ---
No acute events overnight. Remained on 4 liters NC. AM hgb 8.4.
[2024-02-04 07:52] LABS: Glucose - Point of Care 152 mg/dl (70-99)
--- NOTE | 2024-02-04 08:08 | W.PN.CD ---
Today's Communication / Plan
-
-Continue Lasix 80 mg IV BID; transition to Lasix 80 mg PO BID starting tomorrow, which should be home regimen.
-Outpatient follow-up with primary Varnish Thinner.
Impression / Plan
-
83-year-old female (known to Dr. 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
pericardial effusion so procedure aborted), SSS s/p 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
blue lips during blood transfusion as infusion center. She is better oriented today.
HFpEF - acute status post transfusion.
-Continue Lasix 80 mg IV BID; transition to Lasix 80 mg PO BID starting tomorrow, which should be home regimen.
-fluid/sodium restrictions, daily weights, I&Os.
-Echo 01/30/2024: Normal LV size and function, no RWMA, EF 50-55%, dilated RV with reduced function, mild/moderate eccentric MR, mild/severe TR, PASP 57 mmHg.
-Outpatient follow-up with primary Varnish Thinner.
Afib - permanent.
-Rapid rates initially, now rate controlled.
-Continue current dose of carvedilol.
-[id number] score of 7 (age, female, HTN, CHF, PAD/CAD, DM), previously on Eliquis but no longer on OAC 2/2 GAVE/recurrent GIB/SAMARA.
-Patient does not have a MARICARMEN occlusion device.
PPM - [employer], stable with normal function.
-Device is NOT MRI compatible.
Anemia - acute on chronic.
-Receives regular IV Venofer transfusions per heme as an outpatient.
-Heme following for possible TACO.
GAVR/GIB - managed by GI and heme.
-EGD 08/2022 gastric antral vascular ectasia w/o bleeding, hemostasis with APC.
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 Coagulation for hemostasis using argon plasma was successful.
-PPI BID.
CAD - prior stenting.
-Remains stable w/o angina.
-continue medical therapy.
Valvular heart disease - mil/mod MR and mod/severe TR on echo.
-worse compared to previous.
-Lasix as above for volume management.
Physical Exam
Vital Signs/Labs
Vital Signs
Temp Pulse Resp BP Pulse Ox
98.5 F 84 27 132/66 94
02/04/24 03:59 02/04/24 04:00 02/04/24 04:00 02/04/24 05:18 02/04/24 04:00
02/03/24 02/04/24 02/05/24
06:59 06:59 06:59
Actual Weight 77.9 kg 78.3 kg
02/04/24 03:49
02/04/24 03:49
PT 17.3 Sec (11.4-14.6) H 01/30/24 13:43
INR 1.43 01/30/24 13:43
APTT 30.7 Sec (23.4-35.0) 01/30/24 13:43
Magnesium 1.8 mg/dl (1.6-2.3) 01/29/24 12:56
01/29/24 01/30/24
12:57 22:48
Hgg-T-Emboxwpwcet Pept 2560 6150
Physical Exam
Constitutional: Comfortable
EENT: Anicteric
Cardiovascular: Rhythm/rate is irregular, Pedal edema present (Trace-1+), Systolic murmur present (2/6) and S1S2 is normal
Respiratory: Respiratory effort normal, Wheeze Absent and Rhonchi Present
GI: Soft
Neuro/Psych: Alert
Other: Skin (Warm, dry)
Data Reviewed
-
Date of Service: February 04, 2024
EKG: Tracing Personally Visualized and interpreted (Telemetry: A-fib)
Labs: Labs Reviewed by me
[2024-02-04] MEDS: KCL 40 MEQ PO (09:05)
[2024-02-04] MEDS: COREG 3.125 MG PO ×2 (09:05→19:37)
[2024-02-04] MEDS: PROTONIX 40 MG PO (09:05)
[2024-02-04] MEDS: COLACE 100 MG PO ×2 (09:06→19:37)
[2024-02-04] MEDS: LASIX IV (09:06)
[2024-02-04] MEDS: MIRALAX 17 GRAMS PO (09:06)
[2024-02-04] MEDS: DESENEX/MITRAZOL/ZEASORB 1 APPLIC TOPICAL ×2 (09:07→19:37)
[2024-02-04] MEDS: NOVOLOG FLEXPEN-LOW RESISTANCE 1 UNITS SC (09:07)
--- NOTE | 2024-02-04 09:33 | W.PN.HOSP.TC ---
Addendum entered and electronically signed by Jesus Lyle MD 02/05/24 00:31:
Attending Addendum-
I saw and evaluated the patient. I reviewed the resident�s note and agree with findings and plan as documented in the resident�s note. Feels improved but fatigued and weak. Feels less abd pain. No N/V. Full 12 point ROS reviewed and negative except
as documented Exam: Vitals reviewed in chart GEN-NAD heart irreg irreg SM @ apex lungs- decreased BS @ bases abd soft minimal LLQ no rebound/guarding pos BS LE 2+ pitting edema b/l
# Acute on chronic hypoxic and hypercarbic respiratory failure
- h/o COVID
- from TACO-transfusion associated circulatory overload and AE HFpEF
- Oxygenation now stable on baseline 4 L.
- cont IV lasix for diuresis
- VBG reviewed
- Primary metabolic alkalosis likely secondary to diuresis
- appreciate pulm input
- wean 02 for sats 88-92%
# Chronic iron deficiency anemia
- transfusion dependent. Suspect related to chronic GI blood loss, history of GAVE. Hemoglobin averages around 8.
- hb 8.4
- monitor daily CBC
- appreciate heme input
- cont Protonix
# Acute on chronic HFpEF -
- Echocardiogram 01/29- LVEF 50 to 55%, dilated RV with reduced systolic function, mild to moderate MR, moderate to severe TR.
- cont IV Lasix dose 80 mg twice daily - transition to PO lasix in am
- appreciate cards input
- monitor strict I and O and daily weights
- monitor BMP daily
# Hyponatremia
- resolved
# Abdominal Pain
- unclear etiology
- ordered abd KUB- personally reviewed no sig acute abnormalities
- cont to monitor check CT A/P if persists
# AMAYA
- resolved
- monitor closely while on Lasix
- repeat BMP in am
# Permanent atrial fibrillation
-not on anticoagulation due to chronic anemia
- may need to reeval AC as high risk CVA
-monitor closely
# DM2 without hyperglycemia
- Hemoglobin A1c 5.1%, unreliable in the setting of chronic anemia.
- cont Use low resistance insulin scale.
- monitor accuchecks closely
- to start oral meds on DC as OP
# SSS-Permanent pacemaker
# CAD- h/o stent
#Hyperlipidemia- cont atorvastatin
#Hypothyroidism-cont levothyroxine
Limited DNR
Dispo - SNF on DC awaiting placement
Time spent coordinating care, review of plan of care with resident, personally reviewed records in EMR, med rec, consults, notes, labs, radiology, d/w nursing and CM� 54 mins
Original Note:
Today's Communication/Plan
-
- transition of IV Lasix to PO 80mg BID
- transfer to [facility] floor
Assessment / Plan
Assessment / Plan
83-year-old female presents with acute on chronic hypoxic respiratory failure - Suspect most likely diagnosis is transfusion associated circulatory overload given improvement with diuresis, elevated BNP. Oxygenation stable on 4L which is baseline
that she uses at home.
# Acute on chronic hypoxic and hypercarbic respiratory failure
- h/o COVID
- from TACO-transfusion associated circulatory overload and acute CHF exacerbation
- Oxygenation stable on baseline 4 L.
- cont IV lasix 80mg for diuresis - Plan to switch to PO BID 80mg lasix on 02/05/24
- appreciate cardio input
# AMAYA
- resolved
- prerenal likely due to fluid restriction vs effects of IV lasix
# Abdominal pain
- improving
- abdomen Xray clear
- monitor for another 24 hrs.
- t/c CT vs surgical consult.
# Chronic iron deficiency anemia
- transfusion dependent. Suspect related to chronic GI blood loss, history of GAVE. Hemoglobin averages around 8.
- hb 8.4
- monitor daily CBC
- cont Protonix
# Acute on chronic heart failure midrange EF -
- Echocardiogram 01/29 shows LVEF 50 to 55%, dilated RV with reduced systolic function, mild to moderate MR, moderate to severe TR.
- cont IV Lasix dose to 80 mg for today
- appreciate cards input
- monitor strict I and O and daily weights
- monitor BMP daily
# Hyponatremia
- resolved,137 mmol/L on 02/04/24
# Permanent atrial fibrillation
- not on anticoagulation due to chronic anemia
- monitor closely
- continue carvedilol
# DM2 without hyperglycemia
- Hemoglobin A1c 5.1%, unreliable in the setting of chronic anemia.
- cont Use low resistance insulin scale.
- monitor accuchecks closely
- to start oral meds with pcp fu
# SSS-Permanent pacemaker
# CAD- h/o stent
#Hyperlipidemia- cont atorvastatin
#Hypothyroidism-cont levothyroxine
Limited DNR
Dispo will likely need SNF on DC- PT OT
Bowel regimen
Anticipated Discharge: 24 - 48 hours
Subjective/Interval History
-
Date of Service: February 04, 2024
Objective Data
-
Labs:
Laboratory Results
02/04/24
03:49
WBC 5.5
Hgb 8.4 L
Hct 27.6 L
Plt Count 161
Sodium 137
Potassium 3.5
Chloride 89 L
Carbon Dioxide 44 H
BUN 18 H
Creatinine 0.7
Glucose 147 H
Calcium 8.2 L
Total Bilirubin 1.0
AST 25
ALT 13
Alkaline Phosphatase 90
Vital Signs:
Vital Signs
Temp Pulse Resp BP Pulse Ox
98.1 F 76 22 124/65 96
02/04/24 07:20 02/04/24 08:00 02/04/24 08:00 02/04/24 08:00 02/04/24 08:00
I&O
02/03/24 02/04/24 02/05/24
06:59 06:59 06:59
Intake Total 240 / 240 460 / 460
Output Total 1300 / 1300 1450 / 1450
Balance -1060 / -1060 -990 / -990
Review of Systems
-
History Source: Patient
Respiratory: Reports Trouble Breathing
Cardiac: Denies Chest Pain
Musculoskeletal: Denies Joint Pain
Neuro: Denies Headache
Physical Exam
-
General: Well Developed and Well Nourished
Respiratory: Clear to Auscultation
Cardiac: Irregular Rhythm
GI: Soft and Tender (mild in LMQ/LLQ)
Skin: Warm and Dry
Neuro: Awake, Alert and Oriented
Psych: Calm
Data Reviewed
-
Diagnostic Radiology: Report Reviewed by me and Discussed with Patient
Labs: Labs Reviewed by me, Discussed with Physician and Discussed with Patient
[2024-02-04] MEDS: LASIX 80 MG IV ×2 (10:00→16:31)
--- NOTE | 2024-02-04 12:13 | WOUNDNOTE ---
SACRAL/COCCYX CREASE
--- NOTE | 2024-02-04 12:13 | WOUNDNOTE ---
L ARM (UPPER OUTER)(SKIN CANCER HISTORY)
--- NOTE | 2024-02-04 12:14 | WOUNDNOTE ---
[facility] RN note: Patient admitted with respiratory insufficiency. Plan is SNF transfer when patient discharged.
See H&P for complete history.
PMH: iron deficiency, anemia, Von Willebrand's disease, GI bleed, DM, neuropathy, a fib, CAD with stent 2020, HF, respiratory failure, HTN, melanoma, ambulation dysfunction.
Wound Location and type/assessment: Patient admitted with: MASD sacral/coccyx crease. L upper arm dermal skin ulcer patient stated it is skin cancer.
Appetite: good.
Pressure redistribution devices in place: [employer] air bed. Patient sitting in recliner chair.
Plan: Sacral silicone foam maintained. L arm silicone border foam changed. Air chair cushion given. Instructed patient to take air chair cushion when discharged. Patient's daughter stated patient has a transmission specialist but patient is declining having
treatment for her arm skin cancer at this time.
Will confirm orders with hospitalist and discussed with [facility].
Care plan to be updated and will follow as needed.
[2024-02-04 12:22] LABS: Glucose - Point of Care 233 mg/dl (70-99)
[2024-02-04] MEDS: NOVOLOG FLEXPEN-LOW RESISTANCE 2 UNITS SC ×2 (12:26→18:20)
[2024-02-04] MEDS: VITAMIN C 1000 MG PO (12:27)
[2024-02-04] MEDS: VITAMIN D3 (cholecalciferol) 50 MCG PO (12:27)
[2024-02-04] MEDS: VITAMIN B-12 1000 MCG PO (12:27)
[2024-02-04] MEDS: VITAMIN E 400 UNITS PO (12:27)
--- NOTE | 2024-02-04 16:27 | CM ---
CM reviewed chart, no accepting SNFs at this time, awaiting response from [facility] SN[facility]. No beds available at [facility] at this time. [facility] and [facility] out of network for patients insurance. Additional SNF referrals sent in [facility]. CM will
continue to follow for all discharge planning needs.
Plan; SNF pending bed availability, will need insurance auth.
--- NOTE | 2024-02-04 17:15 | W.PN.PUL3 ---
Today's Communication / Plan
-
Continue with diuresis as tolerates
Oxygen has been weaned down to 4 L, baseline
Aspiration precautions, head of bed elevated
Disposition efforts
We will sign off. Please call with questions
Assessment
-
83-year-old female with complex medical history including atrial fibrillation, hypertension, history of heart failure with moderate to severe mitral regurgitation, recurrent GI bleed requiring weekly transfusion, on 4 L of oxygen since 2022, who
presents with acute hypoxic respiratory insufficiency during the blood transfusion. Patient required 100% nonrebreather in the ED. Chest x-ray suggested bilateral interstitial changes. We are asked to comment on her pulmonary process 01/30/2024
Impression:
Acute hypoxic respiratory insufficiency
60% saturation on 4 L
Required 100% nonrebreather --> now back on 4L/min as of 02/02/2024
Suspected TACO vs TRALI (suspect the former)
Receiving blood transfusion during episode, cyanosis
Anemia
GAVE
Weekly transfusion. Follows with hematology (Demetrio)
History of HFmrEF
EF 40%
Mild mitral regurgitation
PA pressure 40, per echo 2022
History of pericardial effusion requiring urgent pericardiocentesis
Tamponade, December 2022
Cardiac arrest/ROSC
Aborted Watchman procedure
Conditions SUSTAINABILITY ANALYST
COVID pneumonia in a vaccinated host 2020
AFib on chronic AC
CAD, coronary stent
Hypothyroidism
HTN
Hysterectomy
Atherosclerosis of aorta
Type 2 diabetes mellitus without complication
Iron deficiency anemia
Hx of gastric ulcer
Hyperlipidemia
Sick sinus syndrome s/p PPM
Ex-heavy cigarette smoker (20-30/day), quit >10 years ago
Pulmonary nodule on CT 11/04/22 - 7.1 mm part solid pulmonary nodule in the posterior segment of the right upper lobe
Sedentary
Limited DNR
Plan/recommendations
Patient with complex medical history
Events noted and confirmed through discussion with daughter by phone
Patient with episode of acute hypoxia during blood transfusion, lip cyanosis, significant symptoms. Required 100% nonrebreather
Chest x-ray with bilateral interstitial changes. Unchanged compared to a year ago but no interval chest x-ray to confirm. Films from 1 year ago during acute illness
CXR on 02/01 shows worsening bilateral interstitial fullness
Chest exam with few scattered crackles
2+ lower extremity edema noted, chronicity unclear
Per reviewing records, weight up 20-22 lbs since November 2023
Oxygen has been weaned down to 4 L
Moving forward
Differential includes TRALI vs TACO. Difficult to differentiate between acute lung injury process from transfusion versus volume overload
Mild leukocytosis noted - now normalized
No documentation of fever
No clear evidence of infectious process, aspiration
Reviewed outpatient records. 4 L is her baseline
Echo reviewed, preserved function/mod MR, mod-severe TR, est PAP 57 with dilated RV with RV systolic dysfunction
Given weight gain, not sure whether this may be volume overload
Lasix 80 IV BID ongoing
Hematology has been consulted
Limited DNR is noted
If this continues to be an issue with regards to intolerance of volume and/or lung injury process, may need to transition discussion towards hospice
Daughter is aware of poor prognosis
We will sign off. Please call with questions
Diagnostic Data
CXR 02/02/2024:
1. Interstitial prominence, which may represent cardiogenic or noncardiogenic pulmonary edema.
2. Small bilateral pleural effusions.
CXR 01/29/24- There is moderate diffuse coarsening of the bronchovascular markings throughout both lungs in a pattern more suggestive of diffuse bilateral pulmonary interstitial inflammatory disease than pulmonary edema.
01/18/23- Bilateral pulmonary opacities, right greater than left, for which differential considerations include pulmonary edema or pneumonia. Small bilateral pleural effusions. Cardiomegaly.
ECHO 01/30/24- Normal LV size with low normal systolic function and no regional wall motion abnormalities. LVEF is 50 to 55% by visual estimation. Dilated RV with reduced systolic function.
Mild to moderate eccentric mitral regurgitation. Moderate to severe tricuspid regurgitation. Estimated pulmonary artery pressure of 57 mmHg. Assuming a right atrial pressure of 15 mmHg.
Compared to prior from December 28, 2021, MR is now mild to moderate from mild and there is now moderate to severe tricuspid regurgitation from mild with moderately elevated estimated PASP of 57 mmHg similar to previous (TTE 2021).
12/12/22- Limited follow-up study to reassess pericardial effusion. Mildly reduced left ventricular function. No clear evidence of pericardial effusion. Compared to previous echo from 12/11/2022 there is no evidence of recurrent pericardial effusion.
Subjective Data
-
Date of Service:
Date of Service: February 04, 2024
Chief Complaint: Pulmonary Follow Up
Subjective:
Patient is comfortable appearing, talking on the phone. Remains on nasal cannula oxygen, negative fluid status noted
Objective Data
Data Reviewed
Vital Signs / I&O / Oxygen:
Vital Signs
Temp Pulse Resp BP Pulse Ox
98.0 F 67 14 102/60 94
02/04/24 11:15 02/04/24 16:00 02/04/24 16:00 02/04/24 16:00 02/04/24 10:00
Intake and Output
02/03/24 02/04/24 02/05/24
06:59 06:59 06:59
Intake Total 240 / 240 460 / 460
Output Total 1300 / 1300 1450 / 1450
Balance -1060 / -1060 -990 / -990
SaO2 94
Nasal Cannula flow liters per 4
minute
Physical Exam
General: Comfortable, Other (Cachectic) and Other (NAD, chronically ill appearing/weakness noted)
HEENT: Normocephalic, Anicteric and Other (dry MM, lip lesion)
Cardiovascular: S1-S2, Irregular Rhythm (Irregularly irregular), Murmur (n), Rub (n) and Peripheral Edema (+2 lower extremity pitting edema bilaterally)
Respiratory: Wheeze (Negative), Crackles (Bilaterally), Rhonchi (Negative), Non-Labored Respirations and Stridor (n)
GI: Soft, Non Distended and Non Tender
Neurology: Awake, Alert and Tremors (Negative)
Skin: Warm, Dry, Cyanosis (n) and Rash (n)
Labs/Micro/Reports
Lab Data
02/04/24 03:49
02/04/24 03:49
[2024-02-04 17:30] LABS: Glucose - Point of Care 215 mg/dl (70-99)
[2024-02-04] MEDS: LIPITOR 40 MG PO (19:37)
--- NOTE | 2024-02-04 20:36 | PTCARENOTE ---
Patient transferred to [address] [place] [address] on 4 liters NC. Belongings sent with patient.
[2024-02-04 21:36] LABS: Glucose - Point of Care 176 mg/dl (70-99)
[2024-02-05 03:00] VITALS: BP 110/56
[2024-02-05] MEDS: SYNTHROID 125 MCG PO (05:23)
[2024-02-05 06:00] VITALS: BMI 31.5
[2024-02-05 06:48] LABS: % Basophils 0.2 % (0-2); % Immature Granulocytes 0.6 % (0-0.5); % Lymphocytes 11.5 % (20.5-51.1); % Monocytes 13.1 % (1.7-9.3); % Neutrophils 72.6 % (42.2-75.2); Absolute Eosinophils 0.1 10^3/uL (0-0.7); Absolute Lymphocytes 0.6 10^3/uL (1.2-3.4); Absolute Monocytes 0.7 10^3/uL (0.1-0.6); Absolute Neutrophils 3.7 10^3/uL (1.4-6.5); Hematocrit 25.6 % (37.0-47.0); Hemoglobin 7.7 g/dL (12.0-16.0); Mean Corp Hgb Conc. 30.1 g/dL (33.0-37.0); Mean Corpuscular Hgb 27.8 pg (27.0-31.0); Mean Corpuscular Volume 92.4 fL (81.0-99.0); Mean Platelet Volume 10.8 fL (7.4-10.4); Nucleated Red Blood Cells % 0 %; Platelet Count 143 10^3/uL (130-400); Red Blood Cell Count 2.77 10^6/uL (4.20-5.40); Red Cell Dist. Width 16.9 % (11.5-14.5)
[2024-02-05 07:10] VITALS: BP 107/44
[2024-02-05 07:15] LABS: Blood Urea Nitrogen 15 mg/dl (7-17); Calcium 8.3 mg/dl (8.4-10.2); Chloride 88 mmol/L (98-107); Estimated Creatinine Clearance 55 ml/min; Glucose 129 mg/dl (70-99); Potassium 3.4 mmol/L (3.5-5.1); Sodium 139 mmol/L (135-145); eGFR > 60.00
[2024-02-05 07:25] LABS: Carbon Dioxide 46 mmol/L (22-30)
[2024-02-05 07:46] LABS: Glucose - Point of Care 155 mg/dl (70-99)
[2024-02-05 08:04] LABS: Anisocytosis 1+; Hypochromasia 2+; Normal RBC Morphology No
[2024-02-05] MEDS: MIRALAX 17 GRAMS PO (08:39)
[2024-02-05] MEDS: PROTONIX 40 MG PO (08:39)
[2024-02-05] MEDS: NOVOLOG FLEXPEN-LOW RESISTANCE 1 UNITS SC ×2 (08:39→12:30)
[2024-02-05] MEDS: COLACE 100 MG PO ×2 (08:40→20:46)
[2024-02-05] MEDS: KCL 40 MEQ PO (08:40)
[2024-02-05] MEDS: LASIX PO (08:42)
[2024-02-05] MEDS: DESENEX/MITRAZOL/ZEASORB 1 APPLIC TOPICAL ×2 (08:47→21:01)
[2024-02-05] MEDS: COREG PO (08:54)
[2024-02-05] MEDS: COREG 3.125 MG PO ×2 (09:20→20:46)
[2024-02-05] MEDS: LASIX 80 MG PO ×2 (09:21→16:21)
--- NOTE | 2024-02-05 09:25 | W.PN.HOSP.TC ---
Addendum entered and electronically signed by Jesus Lyle MD 02/06/24 03:12:
Attending Addendum-
I saw and evaluated the patient. I reviewed the resident�s note and agree with findings and plan as documented in the resident�s note. Feels improved but fatigued and weak. Feels less abd pain. No N/V. Full 12 point ROS reviewed and negative except
as documented Exam: Vitals reviewed in chart GEN-NAD heart irreg irreg SM @ apex lungs- decreased BS @ bases abd soft minimal LLQ no rebound/guarding pos BS LE 2+ pitting edema b/l
# Acute on chronic hypoxic and hypercarbic respiratory failure
- h/o COVID
- from TACO-transfusion associated circulatory overload and AE HFpEF
- Oxygenation now stable on baseline 4 L.
- cont IV lasix for diuresis
- VBG reviewed
- Primary metabolic alkalosis likely secondary to diuresis
- appreciate pulm input
- wean 02 for sats 88-92%
# Chronic iron deficiency anemia
- transfusion dependent. Suspect related to chronic GI blood loss, history of GAVE. Hemoglobin averages around 8.
- hb 7.7
- monitor daily CBC
- appreciate heme input
- cont Protonix
# Acute on chronic HFpEF -
- Echocardiogram 01/29- LVEF 50 to 55%, dilated RV with reduced systolic function, mild to moderate MR, moderate to severe TR.
- cont IV Lasix dose 80 mg twice daily - transition to PO lasix in am
- appreciate cards input
- monitor strict I and O and daily weights
- monitor BMP daily
# Hyponatremia
- resolved
# Hypokalemia
- replete
# Abdominal Pain
- unclear etiology
- ordered abd KUB- personally reviewed no sig acute abnormalities
- cont to monitor check CT A/P if persists
# AMAYA
- resolved
- monitor closely while on Lasix
- repeat BMP in am
# Permanent atrial fibrillation
-not on anticoagulation due to chronic anemia
- may need to reeval AC as high risk CVA
-monitor closely
# DM2 without hyperglycemia
- Hemoglobin A1c 5.1%, unreliable in the setting of chronic anemia.
- cont Use low resistance insulin scale.
- monitor accuchecks closely
- to start oral meds on DC as OP
# SSS-Permanent pacemaker
# CAD- h/o stent
#Hyperlipidemia- cont atorvastatin
#Hypothyroidism-cont levothyroxine
Limited DNR
Dispo - SNF on DC awaiting placement in am
Time spent coordinating care, review of plan of care with resident, personally reviewed records in EMR, med rec, consults, notes, labs, radiology, d/w nursing and CM� 57 mins
Original Note:
Today's Communication/Plan
-
- DC to SNF
- PO Lasix BID 80mg
Assessment / Plan
Assessment / Plan
83-year-old female presents with acute on chronic hypoxic respiratory failure - Suspect most likely diagnosis is transfusion associated circulatory overload given improvement with diuresis, elevated BNP. Oxygenation stable on 4L which is baseline
that she uses at home.
# Acute on chronic hypoxic and hypercarbic respiratory failure
- h/o COVID
- from TACO-transfusion associated circulatory overload and acute CHF exacerbation
- cont PO lasix 80mg BID 80mg
- appreciate cardio input
- wean O2 for sats 88-92% (curently on 3.5L and O2 (2%)
- Primary metabolic alkalosis likely secondary to diuresis
#Nausea
- PRN zofran
# AMAYA
- resolved
- prerenal likely due to fluid restriction vs effects of IV lasix
# Abdominal pain
- Improving
- Abdomen Xray clear
- t/c CT if persist
# Chronic iron deficiency anemia
- transfusion dependent. Suspect related to chronic GI blood loss, history of GAVE. Hemoglobin averages around 8.
- hb 7.7
- monitor daily CBC
- cont Protonix
# Acute on chronic heart failure midrange EF -
- Echocardiogram 01/29 shows LVEF 50 to 55%, dilated RV with reduced systolic function, mild to moderate MR, moderate to severe TR.
- cont PO Lasix 80 mg BID
- monitor strict I and O and daily weights
- monitor BMP daily
# Hyponatremia
- resolved,139 mmol/L on 02/05/24
# Permanent atrial fibrillation
- not on anticoagulation due to chronic anemia
- monitor closely
- continue carvedilol
# DM2 without hyperglycemia
- Hemoglobin A1c 5.1%, unreliable in the setting of chronic anemia.
- cont Use low resistance insulin scale.
- monitor accuchecks closely
- to start oral meds with pcp fu
# SSS-Permanent pacemaker
# CAD- h/o stent
#Hyperlipidemia- cont atorvastatin
#Hypothyroidism-cont levothyroxine
Limited DNR
Dispo to SNF
Bowel regimen
Anticipated Discharge: Within 24 hours
Subjective/Interval History
-
Date of Service: February 05, 2024
Objective Data
-
Labs:
Laboratory Results
02/05/24
06:27
WBC 5.0
Hgb 7.7 L
Hct 25.6 L
Plt Count 143
Sodium 139
Potassium 3.4 L
Chloride 88 L
Carbon Dioxide 46 H
BUN 15
Creatinine 0.7
Glucose 129 H
Calcium 8.3 L
Vital Signs:
Vital Signs
Temp Pulse Resp BP Pulse Ox
98.9 F 78 18 107/44 96
02/05/24 07:10 02/05/24 09:21 02/05/24 07:10 02/05/24 09:21 02/05/24 07:10
I&O
02/04/24 02/05/24 02/06/24
06:59 06:59 06:59
Intake Total 460 / 460 880 / 880
Output Total 1450 / 1450 1400 / 1400
Balance -990 / -990 -520 / -520
Review of Systems
-
History Source: Patient
Respiratory: Reports Trouble Breathing
Cardiac: Denies Chest Pain
Abdomen/GI: Reports Abdominal Pain (mild)
Neuro: Denies Dizzy or Headache
Physical Exam
-
General: Well Developed and Well Nourished
HEENT: Normocephalic and Atraumatic
Respiratory: Crackles
Cardiac: Irregular Rhythm
GI: Tender (mild over LLQ)
Neuro: Awake, Alert and Oriented
Psych: Calm
Data Reviewed
-
Labs: Labs Reviewed by me, Discussed with Physician and Discussed with Patient
[2024-02-05 11:55] VITALS: BP 115/54
--- NOTE | 2024-02-05 12:00 | CM ---
Call received from daughter, Priti, asking about accepting SNF options. CM discussed referrals and accepting SNFs. Daughter requesting follow up with [facility]. Daughter to also look into [facility] as an option. CM to follow up tomorrow
when admissions at facilities are available to discuss insurance and bed availability.
[2024-02-05] MEDS: VITAMIN D3 (cholecalciferol) 50 MCG PO (12:44)
[2024-02-05] MEDS: VITAMIN C 1000 MG PO (12:44)
[2024-02-05] MEDS: VITAMIN E 400 UNITS PO (12:44)
[2024-02-05] MEDS: VITAMIN B-12 1000 MCG PO (12:44)
[2024-02-05 12:58] LABS: Glucose - Point of Care 163 mg/dl (70-99)
[2024-02-05] MEDS: ZOFRAN 4 MG PO (13:12)
[2024-02-05 15:38] VITALS: BP 122/58
--- NOTE | 2024-02-05 16:33 | PTCARENOTE ---
Patient o2 to 3.5L, sat at 92%. aware. tolerating well. denies pain or sob at this time.plan of care ongoing.
[2024-02-05 16:51] LABS: Glucose - Point of Care 227 mg/dl (70-99)
[2024-02-05] MEDS: NOVOLOG FLEXPEN-LOW RESISTANCE 2 UNITS SC (16:53)
[2024-02-05 19:43] VITALS: BP 107/62
[2024-02-05] MEDS: LIPITOR 40 MG PO (21:01)
[2024-02-05 21:33] LABS: Glucose - Point of Care 224 mg/dl (70-99)
[2024-02-05 23:30] VITALS: BP 126/63
[2024-02-06] VITALS (7 sets, daily range): BP systolic 97–131; BP diastolic 49–76; PULSE 83; O2SAT 95; BMI 32.6
[2024-02-06] MEDS: SYNTHROID 125 MCG PO (05:14)
[2024-02-06 06:50] LABS: % Basophils 0.2 % (0-2); % Eosinophils 2.2 % (0-6); % Immature Granulocytes 0.2 % (0-0.5); % Lymphocytes 15.9 % (20.5-51.1); % Monocytes 11.6 % (1.7-9.3); % Neutrophils 69.9 % (42.2-75.2); Absolute Eosinophils 0.1 10^3/uL (0-0.7); Absolute Lymphocytes 0.8 10^3/uL (1.2-3.4); Absolute Monocytes 0.6 10^3/uL (0.1-0.6); Absolute Neutrophils 3.4 10^3/uL (1.4-6.5); Hematocrit 25.7 % (37.0-47.0); Hemoglobin 7.6 g/dL (12.0-16.0); Mean Corp Hgb Conc. 29.6 g/dL (33.0-37.0); Mean Corpuscular Hgb 27.4 pg (27.0-31.0); Mean Corpuscular Volume 92.8 fL (81.0-99.0); Mean Platelet Volume 11.3 fL (7.4-10.4); Nucleated Red Blood Cells % 0.4 %; Platelet Count 137 10^3/uL (130-400); Red Blood Cell Count 2.77 10^6/uL (4.20-5.40); White Blood Cell Count 4.9 10^3/uL (4.8-10.8)
[2024-02-06 07:16] LABS: Glucose - Point of Care 148 mg/dl (70-99)
[2024-02-06 07:19] LABS: Blood Urea Nitrogen 16 mg/dl (7-17); Calcium 8.5 mg/dl (8.4-10.2); Chloride 89 mmol/L (98-107); Estimated Creatinine Clearance 56 ml/min; Glucose 127 mg/dl (70-99); Potassium 3.7 mmol/L (3.5-5.1); Sodium 138 mmol/L (135-145); eGFR > 60.00
[2024-02-06 07:30] LABS: Carbon Dioxide 41 mmol/L (22-30)
--- NOTE | 2024-02-06 08:29 | W.PN.HOSP.TC ---
Addendum entered and electronically signed by Jesus Lyle MD 02/06/24 15:56:
Attending Addendum-
I saw and evaluated the patient. I reviewed the resident�s note and agree with findings and plan as documented in the resident�s note. Wants to stay here in hospital. Very pleasant. denies abd pain. No N/V. Full 12 point ROS reviewed and negative
except as documented Exam: Vitals reviewed in chart GEN-NAD heart irreg irreg SM @ apex lungs- decreased BS @ bases abd soft NT ND no rebound/guarding pos BS LE 1+ pitting edema b/l
# Acute on chronic hypoxic and hypercarbic respiratory failure
- h/o COVID
- from TACO-transfusion associated circulatory overload and AE HFpEF
- Oxygenation now stable on baseline 4 L.
- cont PO lasix for diuresis
- VBG reviewed
- Primary metabolic alkalosis likely secondary to diuresis
- appreciate pulm input
- wean 02 for sats 88-92%
- hypercarbia improving with wean of 02
# Chronic iron deficiency anemia
- transfusion dependent. Suspect related to chronic GI blood loss, history of GAVE. Hemoglobin averages around 8.
- hb 7.6
- monitor daily CBC
- appreciate heme input
- cont Protonix
# Acute on chronic HFpEF -
- Echocardiogram 01/29- LVEF 50 to 55%, dilated RV with reduced systolic function, mild to moderate MR, moderate to severe TR.
- now on PO lasix
- appreciate cards input
- monitor strict I and O and daily weights
- monitor BMP daily
# Hyponatremia
- resolved
# Hypokalemia
- replete prn
# Abdominal Pain
- resolved
# AMAYA
- resolved
- monitor closely while on Lasix
- repeat BMP in am
# Permanent atrial fibrillation
-not on anticoagulation due to chronic anemia
- may need to reeval AC as high risk CVA
-monitor closely
# DM2 without hyperglycemia
- Hemoglobin A1c 5.1%, unreliable in the setting of chronic anemia.
- cont Use low resistance insulin scale.
- monitor accuchecks closely
- to start oral meds on DC as OP with PCP if warranted
# SSS-Permanent pacemaker
# CAD- h/o stent
#Hyperlipidemia- cont atorvastatin
#Hypothyroidism-cont levothyroxine
Limited DNR
Dispo - SNF on DC awaiting placement -- pending auth
Time spent coordinating care, review of plan of care with resident, personally reviewed records in EMR, med rec, consults, notes, labs, radiology, d/w nursing and CM at great length� 55 mins
Original Note:
Today's Communication/Plan
-
- Continue PO Lasix 80mg BID
- DC to SNF- waiting auth
- FU with PCP and cardiology within 1 week
Assessment / Plan
Assessment / Plan
83-year-old female presents with acute on chronic hypoxic respiratory failure - Suspect most likely diagnosis is transfusion associated circulatory overload given improvement with diuresis, elevated BNP.
# Acute on chronic hypoxic and hypercarbic respiratory failure
- h/o COVID
- from TACO-transfusion associated circulatory overload and acute CHF exacerbation
- cont PO lasix 80mg BID 80mg
- appreciate cardio input
- wean O2 for sats 88-92% (curently on 3.5L and O2 (97%)
- Primary metabolic alkalosis likely secondary to diuresis
#Nausea
- PRN zofran
# AMAYA
- resolved
- prerenal likely due to fluid restriction vs effects of IV lasix
# Abdominal pain
- resolved
- Abdomen Xray clear
# Chronic iron deficiency anemia
- transfusion dependent. Suspect related to chronic GI blood loss, history of GAVE. Hemoglobin averages around 8.
- hb 7.6
- monitor daily CBC
# Acute on chronic heart failure midrange EF -
- Echocardiogram 01/29 shows LVEF 50 to 55%, dilated RV with reduced systolic function, mild to moderate MR, moderate to severe TR.
- cont PO Lasix 80 mg BID
- monitor strict I and O and daily weights
- monitor BMP daily
# Hyponatremia
- resolved,138 mmol/L on 02/06/24
# Permanent atrial fibrillation
- not on anticoagulation due to chronic anemia
- monitor closely
- continue carvedilol
# DM2 without hyperglycemia
- Hemoglobin A1c 5.1%, unreliable in the setting of chronic anemia.
- cont Use low resistance insulin scale.
- monitor accuchecks closely
- to start oral meds with pcp fu
# SSS-Permanent pacemaker
# CAD- h/o stent
#Hyperlipidemia- cont atorvastatin
#Hypothyroidism-cont levothyroxine
Limited DNR
Dispo to SNF
Bowel regimen
Anticipated Discharge: Today
Subjective/Interval History
-
Date of Service: February 06, 2024
Objective Data
-
Labs:
Laboratory Results
02/06/24
05:59
WBC 4.9
Hgb 7.6 L
Hct 25.7 L
Plt Count 137
Sodium 138
Potassium 3.7
Chloride 89 L
Carbon Dioxide 41 H
BUN 16
Creatinine 0.7
Glucose 127 H
Calcium 8.5
Vital Signs:
Vital Signs
Temp Pulse Resp BP Pulse Ox
98.0 F 72 18 97/49 92
02/06/24 07:05 02/06/24 07:05 02/06/24 07:05 02/06/24 07:05 02/06/24 07:05
I&O
02/05/24 02/06/24 02/07/24
06:59 06:59 06:59
Intake Total 880 / 880 630 / 630
Output Total 1400 / 1400
Balance -520 / -520 630 / 630
Review of Systems
-
History Source: Patient
Respiratory: Denies Cough
Cardiac: Denies Chest Pain
Abdomen/GI: Denies Abdominal Pain
Musculoskeletal: Denies Joint Pain
Neuro: Denies Headache
Physical Exam
-
General: Well Nourished
HEENT: Normocephalic and Atraumatic
Respiratory: Crackles
Cardiac: Irregular Rhythm
GI: Soft and Nontender
Skin: Warm
Neuro: Awake, Alert and Oriented
Psych: Calm
Data Reviewed
-
Labs: Labs Reviewed by me, Discussed with Physician and Discussed with Patient
--- NOTE | 2024-02-06 08:36 | W.DCSUMMARY ---
Addendum entered and electronically signed by Curt Valero MD 02/10/24 14:09:
Read, reviewed, and agree. See same day progress note for additional details. Time spent coordinating care, DC planning, review of DC plan of care with resident, transition of care, review of records in EMR, med rec, consults, notes, d/w
consultants, nursing, family, and CM 39 mins
Original Note:
Documented by User: Audi Sandoval MD, Resident 02/09/24 12:23
Discharge Summary
Discharge Data
Date of Admission: 01/29/24
Date of Discharge: 02/09/24
-
Pending Results: No
Hospital Course
Discharging Physician : Audi Sandoval MD ; Curt Valero MD
Disposition : SNF
Primary care physician : Akira Castro
Principal Discharge diagnosis : Acute on chronic hypoxic and hypercarbic respiratory failure, acute on chronic HFpEF
Chronic Discharge diagnosis : Hypothyroidism, hyperlipidemia, CAD, permanent pacemaker, diabetes type 2, permanent atrial fibrillation, chronic iron deficiency anemia
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
pacemaker, CAD s/p stent in 2020, HFmrEF, chronic hypoxemic respiratory failure unclear etiology on 4 L baseline, hypertension, hypothyroidism, hyperlipidemia, melanoma, presented with painless, blue lips, mental status change and significant
hypoxia during blood transfusion on date of arrival. Per the daughter patient had abdominal distention and lower extremity edema, gained 25 pounds in 1 year. Patient also reported having black stools on a regular basis. Cardiology, pulmonary
medicine, hematology/oncology, evaluated the patient during her stay in the hospital. Patient was put on 10 L mid flow initially, dexamethasone, Benadryl, Zofran, Lasix was increased to 40 mg twice daily initially, however it was further increased
to 80 mg twice daily during her stay in the hospital. Her acute on chronic hypoxic symptoms were most likely due to transfusion associated circulatory overload and her symptoms significantly improved with IV Lasix. Her oxygen was also weaned down
to 3 L which she tolerated as her oxygen saturation stayed above 92%. She complained of abdominal pain during her stay at the hospital, however abdominal x-ray was clear. She denied having a bowel movement for more than 3 days and was given a
suppository in addition to oral laxatives which resulted in bowel movement and relieving of abdominal pain/abdominal fullness. At this time her oxygen requirement is around her baseline requirement and she is cleared to be discharged on on p.o.
Lasix 80 mg twice daily dose per cardio. She has been instructed to follow-up with family doctor and cardiology in outpatient for continued care. She verified understanding.
Important imaging findings : Chest x-ray shows moderate diffuse coarsening of the bronchovascular markings throughout the lungs suggestive of diffuse bilateral pulmonary interstitial inflammatory disease rather than pulmonary edema
Procedure findings : Echo: LVEF is 50 to 55% by visual estimation. Performed on 01/30/2020.
Discharge Plan
-
Patient Disposition: [facility]/SNF
Discharge Diagnosis/Procedures: Acute on chronic hypoxic and hypercarbic respiratory failure, Acute on chronic HFpEF
Condition: Fair
Diet: As tolerated
Additional Diets: As prior to admission
Activity: With assistance and As tolerated
Driving Restrictions: As prior to admission
Bathing Restrictions: None
Activity Restrictions/Additional Instructions:
Wound Care Instructions
L upper arm wound (skin cancer lesion?)-clean with saline or soap and water, apply non stick dressing (i.e Silicone border foam, change daily and as needed for drainage).
Miconazole powder to affected areas twice a day.
Sacral/coccyx-clean and dry skin, miconazole powder to yeasty red skin, protective silicone border foam, change q 2 days and prn loosened dressing. If foam ineffective, apply miconazole powder and barrier ointment twice a day instead.
Pressure redistributing chair cushion (i.e. Air chair cushion).
Elevate heels off bed with pillow/s.
Evaluate for air mattress.
Follow up with dermatolgist.
Follow up at wound care center if needed, call for an appointment.
Referrals:
Akira Castro CRNP [Family Provider] - in less than 1 week
Additional Discharge Medication Instructions: Furosemide 80 mg tablet by mouth twice daily
Polyethylene glycol by mouth as needed
Instructed to follow-up with family doctor within 1 week to consider medication for high blood sugars
Prescriptions:
New
furosemide 80 mg Tablet
80 mg PO BID@0800,1600 Qty: 60 0RF
polyethylene glycol 3350 [HealthyLax] 17 gram Powder In Packet
17 g PO PRN PRN (Reason: Constipation) Qty: 30 0RF
Continued
levothyroxine 125 MCG tablet
125 mcg PO MOTUWETHFRSA@0800
atorvastatin 40 MG tablet
40 mg PO HS
cyanocobalamin (vitamin B-12) 1,000 MCG tablet
1,000 mcg PO NOON
ascorbic acid (vitamin C) [Vitamin C] 1,000 mg Tablet
1,000 mg PO NOON
carvedilol 3.125 mg Tablet
3.125 mg PO BID
potassium chloride 20 mEq Tablet,Er Particles/Crystals
20 meq PO NOON
bisacodyl [Dulcolax (bisacodyl)] 5 mg Tablet,Delayed Release (Dr/Ec)
5 mg PO HS PRN (Reason: constipation)
diphenhydramine-acetaminophen [Tylenol PM Extra Strength] 25-500 mg Tablet
1 tab PO HSPRN PRN (Reason: sleep)
guaifenesin [Mucinex] 1,200 mg Tablet Extended Release 12hr
600 mg PO [id number] PRN (Reason: mucus)
cholecalciferol (vitamin D3) 50 mcg (2,000 unit) Tablet
50 mcg PO NOON
vitamin E (dl, acetate) 180 mg (400 unit) Capsule
180 mg PO NOON
Venofer 200 mg iron/10 mL Solution
200 mg IV QMONTH
Patient Comments:
01/29/2024, contacted OID Department to confirm dose. Per daughter, this IV was originally scheduled to be done Q2W but they have been stretching it to Qmonth due to pt.'s iron levels.
pantoprazole 40 mg tablet,delayed release (DR/EC)
40 mg PO DAILY
Discontinued
furosemide 40 mg tablet
80 mg PO QMONTH
Patient Comments:
01/29/2024, per daughter, pt. takes 2 tabs after her blood transfusions.
Rx Instructions:
takes 2 tabs after her blood transfusions.
furosemide 40 mg tablet
40 mg PO BID
Discharge Orders:
Discharge Patient (As Directed); Ordered 02/09/24
Ordered By: Audi Sandoval
Discharge Date and Time
Discharge Date/Time: 02/09/24 13:29
Print Language: VENEZUELAN

Documented by User: Curt Valero MD 02/10/24 14:07
Discharge Summary
Discharge Data
Date of Admission: 01/29/24
Date of Discharge: 02/09/24
Discharge Plan
-
Patient Disposition: [facility]/SNF
Discharge Diagnosis/Procedures: Acute on chronic hypoxic and hypercarbic respiratory failure, Acute on chronic HFpEF
Condition: Fair
Diet: As tolerated
Additional Diets: As prior to admission
Activity: With assistance and As tolerated
Driving Restrictions: As prior to admission
Bathing Restrictions: None
Activity Restrictions/Additional Instructions:
Wound Care Instructions
L upper arm wound (skin cancer lesion?)-clean with saline or soap and water, apply non stick dressing (i.e Silicone border foam, change daily and as needed for drainage).
Miconazole powder to affected areas twice a day.
Sacral/coccyx-clean and dry skin, miconazole powder to yeasty red skin, protective silicone border foam, change q 2 days and prn loosened dressing. If foam ineffective, apply miconazole powder and barrier ointment twice a day instead.
Pressure redistributing chair cushion (i.e. Air chair cushion).
Elevate heels off bed with pillow/s.
Evaluate for air mattress.
Follow up with dermatolgist.
Follow up at wound care center if needed, call for an appointment.
Referrals:
Akira Castro CRNP [Family Provider] - in less than 1 week
Additional Discharge Medication Instructions: Furosemide 80 mg tablet by mouth twice daily
Polyethylene glycol by mouth as needed
Instructed to follow-up with family doctor within 1 week to consider medication for high blood sugars
Prescriptions:
New
furosemide 80 mg Tablet
80 mg PO BID@0800,1600 Qty: 60 0RF
polyethylene glycol 3350 [HealthyLax] 17 gram Powder In Packet
17 g PO PRN PRN (Reason: Constipation) Qty: 30 0RF
Continued
levothyroxine 125 MCG tablet
125 mcg PO MOTUWETHFRSA@0800
atorvastatin 40 MG tablet
40 mg PO HS
cyanocobalamin (vitamin B-12) 1,000 MCG tablet
1,000 mcg PO NOON
ascorbic acid (vitamin C) [Vitamin C] 1,000 mg Tablet
1,000 mg PO NOON
carvedilol 3.125 mg Tablet
3.125 mg PO BID
potassium chloride 20 mEq Tablet,Er Particles/Crystals
20 meq PO NOON
bisacodyl [Dulcolax (bisacodyl)] 5 mg Tablet,Delayed Release (Dr/Ec)
5 mg PO HS PRN (Reason: constipation)
diphenhydramine-acetaminophen [Tylenol PM Extra Strength] 25-500 mg Tablet
1 tab PO HSPRN PRN (Reason: sleep)
guaifenesin [Mucinex] 1,200 mg Tablet Extended Release 12hr
600 mg PO [id number] PRN (Reason: mucus)
cholecalciferol (vitamin D3) 50 mcg (2,000 unit) Tablet
50 mcg PO NOON
vitamin E (dl, acetate) 180 mg (400 unit) Capsule
180 mg PO NOON
Venofer 200 mg iron/10 mL Solution
200 mg IV QMONTH
Patient Comments:
01/29/2024, contacted OID Department to confirm dose. Per daughter, this IV was originally scheduled to be done Q2W but they have been stretching it to Qmonth due to pt.'s iron levels.
pantoprazole 40 mg tablet,delayed release (DR/EC)
40 mg PO DAILY
Discontinued
furosemide 40 mg tablet
80 mg PO QMONTH
Patient Comments:
01/29/2024, per daughter, pt. takes 2 tabs after her blood transfusions.
Rx Instructions:
takes 2 tabs after her blood transfusions.
furosemide 40 mg tablet
40 mg PO BID
Discharge Orders:
Discharge Patient (As Directed); Ordered 02/09/24
Ordered By: Audi Sandoval
Discharge Date and Time
Discharge Date/Time: 02/09/24 13:29
Print Language: VENEZUELAN
[2024-02-06] MEDS: COLACE 100 MG PO ×2 (09:36→19:56)
[2024-02-06] MEDS: KCL 40 MEQ PO (09:36)
[2024-02-06] MEDS: PROTONIX 40 MG PO (09:36)
[2024-02-06] MEDS: COREG 3.125 MG PO ×2 (09:40→19:56)
[2024-02-06] MEDS: DESENEX/MITRAZOL/ZEASORB 1 APPLIC TOPICAL ×2 (09:42→21:16)
[2024-02-06] MEDS: LASIX 80 MG PO ×2 (09:42→17:15)
[2024-02-06] MEDS: MIRALAX 17 GRAMS PO (09:43)
[2024-02-06] MEDS: NOVOLOG FLEXPEN-LOW RESISTANCE SC (09:43)
--- NOTE | 2024-02-06 09:48 | PTCARENOTE ---
patient am bp 97/49,72. aware. ok to give am meds per
[2024-02-06 11:25] LABS: Glucose - Point of Care 163 mg/dl (70-99)
[2024-02-06] MEDS: NOVOLOG FLEXPEN-LOW RESISTANCE 1 UNITS SC ×2 (12:26→17:15)
[2024-02-06] MEDS: VITAMIN C 1000 MG PO (12:27)
[2024-02-06] MEDS: VITAMIN B-12 1000 MCG PO (12:27)
[2024-02-06] MEDS: VITAMIN D3 (cholecalciferol) 50 MCG PO (12:27)
[2024-02-06] MEDS: VITAMIN E 400 UNITS PO (12:27)
--- NOTE | 2024-02-06 15:51 | CM ---
Addendum entered by Allen Cummings 02/06/24 16:04:
NURSE TO NURSE REPORT # [phone] (Confirmed #).
FAX # [phone]
Original Note:
Patient has been accepted to [facility] for STR. Spoke with daughter who is in agreement. Preferred [place] but no beds at this time. Insurance auth required and initiated. Pending reference # [id number], Fax for documents is [phone].
Records have been forwarded and received confirmation notice. Contact at [facility] is Mandy @ [phone].
[2024-02-06 16:29] LABS: Glucose - Point of Care 156 mg/dl (70-99)
[2024-02-06] MEDS: LIPITOR 40 MG PO (21:12)
[2024-02-06 21:21] LABS: Glucose - Point of Care 259 mg/dl (70-99)
[2024-02-07] VITALS (8 sets, daily range): BP systolic 96–139; BP diastolic 45–72; O2SAT 94; BMI 31.8
[2024-02-07] MEDS: SYNTHROID 125 MCG PO (05:38)
--- NOTE | 2024-02-07 06:49 | W.PN.HOSP.TC ---
Addendum entered and electronically signed by Jesus Lyle MD 02/07/24 23:34:
Attending Addendum-
I saw and evaluated the patient. I reviewed the resident�s note and agree with findings and plan as documented in the resident�s note. no complaints. Very pleasant. denies pain and continues to have chronic SOB but improved. No N/V. Full 12 point
ROS reviewed and negative except as documented Exam: Vitals reviewed in chart GEN-NAD heart irreg irreg SM @ apex lungs- decreased BS @ bases abd soft NT ND no rebound/guarding pos BS LE 1+ pitting edema b/l
# Acute on chronic hypoxic and hypercarbic respiratory failure
- h/o COVID
- from TACO-transfusion associated circulatory overload and AE HFpEF
- Oxygenation now stable @ 3.5 L
- cont PO lasix for diuresis
- VBG reviewed
- Primary metabolic alkalosis likely secondary to diuresis
- appreciate pulm input
- wean 02 for sats 88-92%
- hypercarbia improving with wean of 02
# Chronic iron deficiency anemia
- transfusion dependent. Suspect related to chronic GI blood loss, history of GAVE. Hemoglobin averages around 8.
- hb now 8.1
- monitor daily CBC
- appreciate heme input
- cont Protonix
# Acute on chronic HFpEF -
- Echocardiogram 01/29- LVEF 50 to 55%, dilated RV with reduced systolic function, mild to moderate MR, moderate to severe TR.
- cont PO lasix
- appreciate cards input
- monitor strict I and O and daily weights
- monitor BMP daily
# Hyponatremia
- resolved
# Hypokalemia
- replete prn
# Abdominal Pain
- resolved
# AMAYA
- resolved
- monitor closely while on Lasix
- repeat BMP in am
# Permanent atrial fibrillation
- not on anticoagulation due to chronic anemia
- may need to reeval AC as OP
- monitor closely
# DM2 without hyperglycemia
- Hemoglobin A1c 5.1%, unreliable in the setting of chronic anemia.
- cont Use low resistance insulin scale.
- monitor accuchecks closely
- to start oral meds on DC as OP with PCP if warranted
# SSS-Permanent pacemaker
# CAD- h/o stent
#Hyperlipidemia- cont atorvastatin
#Hypothyroidism-cont levothyroxine
Limited DNR
Dispo - SNF on DC awaiting AUTH -- accepted [facility] [place]
Time spent coordinating care, review of plan of care with resident, personally reviewed records in EMR, med rec, consults, notes, labs, radiology, d/w nursing and CM� 52 mins
Original Note:
Today's Communication/Plan
-
- Continue PO Lasix 80mg BID
- DC to SNF- waiting auth
- FU with PCP and cardiology within 1 week
Assessment / Plan
Assessment / Plan
83-year-old female presents with acute on chronic hypoxic respiratory failure - Suspect most likely diagnosis is transfusion associated circulatory overload given improvement with diuresis, elevated BNP.
# Acute on chronic hypoxic and hypercarbic respiratory failure
- h/o COVID
- from TACO-transfusion associated circulatory overload and acute CHF exacerbation
- cont PO lasix 80mg BID 80mg
- wean O2 for sats 88-92% (curently on 3.5L and O2 (97%)
- Hypercarbia improving
#Nausea
- PRN zofran
# AMAYA
- resolved
- prerenal likely due to fluid restriction vs effects of IV lasix
# Abdominal pain
- resolved
- Abdomen Xray clear
# Chronic iron deficiency anemia
- transfusion dependent. Suspect related to chronic GI blood loss, history of GAVE. Hemoglobin averages around 8.
- hb 8.1
- monitor daily CBC
# Acute on chronic heart failure midrange EF -
- Echocardiogram 01/29 shows LVEF 50 to 55%, dilated RV with reduced systolic function, mild to moderate MR, moderate to severe TR.
- cont PO Lasix 80 mg BID
- monitor strict I and O and daily weights
- monitor BMP daily
# Hyponatremia
- resolved,137 mmol/L on 02/07/24
# Permanent atrial fibrillation
- not on anticoagulation due to chronic anemia
- monitor closely
- continue carvedilol
# DM2 without hyperglycemia
- Hemoglobin A1c 5.1%, unreliable in the setting of chronic anemia.
- cont Use low resistance insulin scale.
- monitor accuchecks closely
- to start oral meds with pcp fu
# SSS-Permanent pacemaker
# CAD- h/o stent
#Hyperlipidemia- cont atorvastatin
#Hypothyroidism-cont levothyroxine
Limited DNR
Dispo to SNF - awaiting auth
Bowel regimen
Anticipated Discharge: Within 24 hours
Subjective/Interval History
-
Date of Service: February 07, 2024
Objective Data
-
Labs:
Laboratory Results
02/07/24
06:00
WBC Pending
Hgb Pending
Hct Pending
Plt Count Pending
Sodium Pending
Potassium Pending
Chloride Pending
Carbon Dioxide Pending
BUN Pending
Creatinine Pending
Glucose Pending
Calcium Pending
Vital Signs:
Vital Signs
Temp Pulse Resp BP Pulse Ox
98.6 F 74 14 139/72 96
02/07/24 03:00 02/07/24 03:00 02/07/24 03:00 02/07/24 03:00 02/07/24 03:00
I&O
02/05/24 02/06/24 02/07/24
06:59 06:59 06:59
Intake Total 880 / 880 630 / 630 840 / 840
Output Total 1400 / 1400
Balance -520 / -520 630 / 630 840 / 840
Review of Systems
-
History Source: Patient
Constitutional: Reports Fatigue
Respiratory: Reports Trouble Breathing; Denies Cough
Cardiac: Denies Chest Pain
Abdomen/GI: Denies Abdominal Pain
Musculoskeletal: Denies Joint Pain
Neuro: Denies Headache
Physical Exam
-
General: Well Developed, Well Nourished and Comfortable
HEENT: Normocephalic and Atraumatic
Respiratory: Clear to Auscultation
Cardiac: Regular Rhythm and S1/S2
GI: Soft and Nontender
Musculoskeletal: No Clubbing (2+ improving)
Skin: Warm and Dry
Psych: Calm
Data Reviewed
-
Labs: Labs Reviewed by me, Discussed with Physician and Discussed with Patient
[2024-02-07 07:22] LABS: Glucose - Point of Care 152 mg/dl (70-99)
[2024-02-07] MEDS: LASIX 80 MG PO ×2 (07:42→16:51)
[2024-02-07] MEDS: PROTONIX 40 MG PO (07:42)
[2024-02-07] MEDS: COLACE 100 MG PO ×2 (07:43→20:37)
[2024-02-07] MEDS: KCL 40 MEQ PO (07:43)
[2024-02-07] MEDS: MIRALAX 17 GRAMS PO (07:43)
[2024-02-07] MEDS: COREG 3.125 MG PO ×2 (07:43→20:36)
[2024-02-07] MEDS: DESENEX/MITRAZOL/ZEASORB 1 APPLIC TOPICAL ×2 (07:44→20:54)
[2024-02-07] MEDS: NOVOLOG FLEXPEN-LOW RESISTANCE 1 UNITS SC ×2 (09:23→17:26)
[2024-02-07 10:17] LABS: % Basophils 0.5 % (0-2); % Eosinophils 1.8 % (0-6); % Immature Granulocytes 0.3 % (0-0.5); % Lymphocytes 13.2 % (20.5-51.1); % Monocytes 10.7 % (1.7-9.3); % Neutrophils 73.5 % (42.2-75.2); Absolute Eosinophils 0.1 10^3/uL (0-0.7); Absolute Lymphocytes 0.5 10^3/uL (1.2-3.4); Absolute Monocytes 0.4 10^3/uL (0.1-0.6); Absolute Neutrophils 2.9 10^3/uL (1.4-6.5); Hematocrit 28.1 % (37.0-47.0); Hemoglobin 8.1 g/dL (12.0-16.0); Mean Corp Hgb Conc. 28.8 g/dL (33.0-37.0); Mean Corpuscular Hgb 26.7 pg (27.0-31.0); Mean Corpuscular Volume 92.7 fL (81.0-99.0); Nucleated Red Blood Cells % 0 %; Platelet Count 147 10^3/uL (130-400); Red Blood Cell Count 3.03 10^6/uL (4.20-5.40); White Blood Cell Count 3.9 10^3/uL (4.8-10.8)
[2024-02-07 11:10] LABS: Glucose - Point of Care 218 mg/dl (70-99)
[2024-02-07 11:12] LABS: Blood Urea Nitrogen 17 mg/dl (7-17); Calcium 8.8 mg/dl (8.4-10.2); Chloride 86 mmol/L (98-107); Estimated Creatinine Clearance 55 ml/min; Glucose 145 mg/dl (70-99); Potassium 4.4 mmol/L (3.5-5.1); Sodium 137 mmol/L (135-145); eGFR > 60.00
[2024-02-07 11:22] LABS: Carbon Dioxide 41 mmol/L (22-30)
[2024-02-07] MEDS: VITAMIN D3 (cholecalciferol) 50 MCG PO (12:13)
[2024-02-07] MEDS: VITAMIN B-12 1000 MCG PO (12:13)
[2024-02-07] MEDS: VITAMIN E 400 UNITS PO (12:13)
[2024-02-07] MEDS: VITAMIN C 1000 MG PO (12:13)
[2024-02-07] MEDS: NOVOLOG FLEXPEN-LOW RESISTANCE 2 UNITS SC (12:54)
[2024-02-07 17:11] LABS: Glucose - Point of Care 156 mg/dl (70-99)
[2024-02-07] MEDS: LIPITOR 40 MG PO (20:37)
[2024-02-07 21:07] LABS: Glucose - Point of Care 218 mg/dl (70-99)
[2024-02-08 03:00] VITALS: BP 102/46
[2024-02-08 05:07] VITALS: BMI 31.9
[2024-02-08 07:10] VITALS: BP 110/59
[2024-02-08 07:27] LABS: % Basophils 0.5 % (0-2); % Eosinophils 3.3 % (0-6); % Immature Granulocytes 0.5 % (0-0.5); % Lymphocytes 17.6 % (20.5-51.1); % Monocytes 12.5 % (1.7-9.3); % Neutrophils 65.6 % (42.2-75.2); Absolute Eosinophils 0.1 10^3/uL (0-0.7); Absolute Lymphocytes 0.7 10^3/uL (1.2-3.4); Absolute Monocytes 0.5 10^3/uL (0.1-0.6); Absolute Neutrophils 2.6 10^3/uL (1.4-6.5); Hematocrit 25.5 % (37.0-47.0); Hemoglobin 7.6 g/dL (12.0-16.0); Mean Corp Hgb Conc. 29.8 g/dL (33.0-37.0); Mean Corpuscular Hgb 27.2 pg (27.0-31.0); Mean Corpuscular Volume 91.4 fL (81.0-99.0); Nucleated Red Blood Cells % 0 %; Platelet Count 133 10^3/uL (130-400); Red Blood Cell Count 2.79 10^6/uL (4.20-5.40); White Blood Cell Count 3.9 10^3/uL (4.8-10.8)
[2024-02-08 07:54] LABS: Blood Urea Nitrogen 16 mg/dl (7-17); Calcium 8.5 mg/dl (8.4-10.2); Chloride 86 mmol/L (98-107); Estimated Creatinine Clearance 55 ml/min; Glucose 128 mg/dl (70-99); Potassium 3.9 mmol/L (3.5-5.1); Sodium 136 mmol/L (135-145); eGFR > 60.00
[2024-02-08 08:04] LABS: Carbon Dioxide 43 mmol/L (22-30)
[2024-02-08 08:21] LABS: Glucose - Point of Care 147 mg/dl (70-99)
--- NOTE | 2024-02-08 09:09 | W.PN.HOSP.TC ---
Addendum entered and electronically signed by Jesus Lyle MD 02/08/24 15:33:
Attending Addendum-
I saw and evaluated the patient. I reviewed the resident�s note and agree with findings and plan as documented in the resident�s note. no complaints. chronic SOB but no other complaints. No N/V. Full 12 point ROS reviewed and negative except as
documented Exam: Vitals reviewed in chart GEN-NAD heart irreg irreg SM @ apex lungs- decreased BS @ bases abd soft NT ND no rebound/guarding pos BS LE 1+ pitting edema b/l
# Acute on chronic hypoxic and hypercarbic respiratory failure
- resolved
- from TACO-transfusion associated circulatory overload and AE HFpEF
- Oxygenation now stable @ 3 L (home 4L)
- cont PO lasix for diuresis
- Primary metabolic alkalosis
- wean 02 for sats 88-92%
- hypercarbia improving with wean of 02
# Chronic iron deficiency anemia
- transfusion dependent. Suspect related to chronic GI blood loss, history of GAVE. Hemoglobin averages around 8.
- hb now 7.6
- monitor daily CBC
- appreciate heme input
- cont Protonix
# Acute on chronic HFpEF -
- resolved
- Echocardiogram 01/29- LVEF 50 to 55%, dilated RV with reduced systolic function, mild to moderate MR, moderate to severe TR.
- cont PO lasix
- appreciate cards input
- monitor strict I and O and daily weights
- monitor BMP daily
# Hyponatremia
- resolved
# Hypokalemia
- replete prn
# Abdominal Pain
- resolved
# AMAYA
- resolved
- monitor closely while on Lasix
- repeat BMP in am
# Permanent atrial fibrillation
- not on anticoagulation due to chronic anemia
- may need to reeval the addition of NOAC as OP
- monitor closely
# DM2 without hyperglycemia
- Hemoglobin A1c 5.1%, unreliable in the setting of chronic anemia.
- cont Use low resistance insulin scale.
- monitor accuchecks closely
# SSS-Permanent pacemaker
# CAD- h/o stent
#Hyperlipidemia- cont atorvastatin
#Hypothyroidism-cont levothyroxine
Limited DNR
Dispo - SNF on DC still awaiting AUTH -- accepted [facility] [place] when able
Time spent coordinating care, review of plan of care with resident, personally reviewed records in EMR, med rec, consults, notes, labs, radiology, d/w nursing and CM� 37 mins
Original Note:
Today's Communication/Plan
-
- Continue PO Lasix 80mg BID
- DC to SNF ( [facility] [place] [facility])- waiting auth
- FU with PCP and cardiology within 1 week
Assessment / Plan
Assessment / Plan
83-year-old female presents with acute on chronic hypoxic respiratory failure - Suspect most likely diagnosis is transfusion associated circulatory overload given improvement with diuresis, elevated BNP.
# Acute on chronic hypoxic and hypercarbic respiratory failure
- h/o COVID
- from TACO-transfusion associated circulatory overload and acute CHF exacerbation
- cont PO lasix 80mg BID 80mg
- wean O2 for sats 88-92% (curently on 3L and O2 (94%)
- Hypercarbia improving
#Nausea
- PRN zofran
- She had BM today after the use of Suppository
# AMYAA
- resolved
- prerenal likely due to fluid restriction vs effects of IV lasix
# Abdominal pain
- resolved
- Abdomen Xray clear
# Chronic iron deficiency anemia
- transfusion dependent. Suspect related to chronic GI blood loss, history of GAVE. Hemoglobin averages around 8.
- hb 7.6
- monitor daily CBC
# Acute on chronic heart failure midrange EF -
- Echocardiogram 01/29 shows LVEF 50 to 55%, dilated RV with reduced systolic function, mild to moderate MR, moderate to severe TR.
- cont PO Lasix 80 mg BID
- monitor strict I and O and daily weights
- monitor BMP daily
# Hyponatremia
- resolved,136 mmol/L on 02/08/24
# Permanent atrial fibrillation
- not on anticoagulation due to chronic anemia
- monitor closely
- continue carvedilol
# DM2 without hyperglycemia
- Hemoglobin A1c 5.1%, unreliable in the setting of chronic anemia.
- cont Use low resistance insulin scale.
- monitor accuchecks closely
- to start oral meds with pcp fu
# SSS-Permanent pacemaker
# CAD- h/o stent
#Hyperlipidemia- cont atorvastatin
#Hypothyroidism-cont levothyroxine
Limited DNR
Dispo to SNF - awaiting auth
Bowel regimen
Anticipated Discharge: Within 24 hours
Subjective/Interval History
-
Date of Service: February 08, 2024
Objective Data
-
Labs:
Laboratory Results
02/08/24
06:18
WBC 3.9 L
Hgb 7.6 L
Hct 25.5 L
Plt Count 133
Sodium 136
Potassium 3.9
Chloride 86 L
Carbon Dioxide 43 H
BUN 16
Creatinine 0.7
Glucose 128 H
Calcium 8.5
Vital Signs:
Vital Signs
Temp Pulse Resp BP Pulse Ox
98 F 82 18 110/59 100
02/08/24 07:10 02/08/24 07:10 02/08/24 07:10 02/08/24 07:10 02/08/24 07:10
I&O
02/07/24 02/08/24 02/09/24
06:59 06:59 06:59
Intake Total 840 / 840 1080 / 1080
Balance 840 / 840 1080 / 1080
Review of Systems
-
History Source: Patient
Constitutional: Denies Fever
Respiratory: Denies Cough
Cardiac: Denies Chest Pain
Abdomen/GI: Denies Abdominal Pain
Musculoskeletal: Denies Joint Swelling
Neuro: Denies Headache
Hematologic / Lymphatic: Denies Bleeding
Physical Exam
-
General: Well Developed and No Apparent Distress
HEENT: Normocephalic and Atraumatic
Respiratory: Clear to Auscultation and Decreased Breath Sounds
Cardiac: Irregular Rhythm
GI: Soft, Nontender and Distended
Neuro: Awake and Alert
Psych: Calm
Data Reviewed
-
Labs: Labs Reviewed by me, Discussed with Physician and Discussed with Patient
[2024-02-08] MEDS: NOVOLOG FLEXPEN-LOW RESISTANCE SC (09:14)
[2024-02-08] MEDS: LASIX 80 MG PO ×2 (09:14→16:01)
[2024-02-08] MEDS: PROTONIX 40 MG PO (09:15)
[2024-02-08] MEDS: MIRALAX 17 GRAMS PO (09:15)
[2024-02-08] MEDS: KCL 40 MEQ PO (09:15)
[2024-02-08] MEDS: COREG 3.125 MG PO ×2 (09:15→20:31)
[2024-02-08] MEDS: COLACE 100 MG PO ×2 (09:15→20:31)
[2024-02-08] MEDS: DESENEX/MITRAZOL/ZEASORB 1 APPLIC TOPICAL ×2 (09:16→20:32)
[2024-02-08] MEDS: DULCOLAX 10 MG RECTAL (10:54)
[2024-02-08 11:05] VITALS: BP 102/52
[2024-02-08 12:06] LABS: Glucose - Point of Care 200 mg/dl (70-99)
[2024-02-08] MEDS: NOVOLOG FLEXPEN-LOW RESISTANCE 2 UNITS SC (12:13)
[2024-02-08] MEDS: VITAMIN D3 (cholecalciferol) 50 MCG PO (12:15)
[2024-02-08] MEDS: VITAMIN B-12 1000 MCG PO (12:15)
[2024-02-08] MEDS: VITAMIN E 400 UNITS PO (12:15)
[2024-02-08] MEDS: VITAMIN C 1000 MG PO (12:15)
[2024-02-08] MEDS: MUCINEX 600 MG PO (12:17)
[2024-02-08 15:10] VITALS: BP 118/97
[2024-02-08] MEDS: ZOFRAN 4 MG PO (15:13)
--- NOTE | 2024-02-08 15:53 | CM ---
Reviewed the chart notes and spoke with the patient at the bedside. Call placed to [facility] to check status of pended auth. Per ict sales representative, still in review. IMM signed and placed on the chart. CM continues to be available to patient/family and is
monitoring medical plan for needs at discharge.
Plan: Discharge to [facility] once auth obtained.
[2024-02-08 15:57] LABS: Glucose - Point of Care 196 mg/dl (70-99)
[2024-02-08] MEDS: NOVOLOG FLEXPEN-LOW RESISTANCE 1 UNITS SC (16:04)
[2024-02-08 19:38] VITALS: BP 109/58
[2024-02-08] MEDS: LIPITOR 40 MG PO (20:31)
[2024-02-08 21:30] LABS: Glucose - Point of Care 171 mg/dl (70-99)
[2024-02-08 23:34] VITALS: BP 111/55
[2024-02-09 03:21] VITALS: BP 106/62
[2024-02-09] MEDS: SYNTHROID 125 MCG PO (05:36)
--- NOTE | 2024-02-09 05:52 | PTCARENOTE ---
Daily weight attempted by the tech this AM and bed scale was saying 155 when pt's weight one day ago was 168. Will ask the day nurse/tech to zero out the scale again when pt is OOB to chair and re weigh her. I think the scale is not accurate.
[2024-02-09 07:34] LABS: Glucose - Point of Care 142 mg/dl (70-99)
[2024-02-09] MEDS: NOVOLOG FLEXPEN-LOW RESISTANCE SC (07:39)
[2024-02-09 07:52] VITALS: BP 97/52
--- NOTE | 2024-02-09 08:11 | PTCARENOTE ---
pt morning BP is 97/[address] Valero about AM dose of lasix 80 mg
[2024-02-09] MEDS: PROTONIX 40 MG PO (08:12)
[2024-02-09] MEDS: MIRALAX 17 GRAMS PO (08:12)
[2024-02-09] MEDS: KCL 40 MEQ PO (08:12)
[2024-02-09] MEDS: COLACE 100 MG PO (08:12)
[2024-02-09] MEDS: COREG 3.125 MG PO (08:13)
[2024-02-09] MEDS: DESENEX/MITRAZOL/ZEASORB 1 APPLIC TOPICAL (08:15)
[2024-02-09 08:35] LABS: % Basophils 0.5 % (0-2); % Eosinophils 2.7 % (0-6); % Immature Granulocytes 0.3 % (0-0.5); % Lymphocytes 20.7 % (20.5-51.1); % Monocytes 11.1 % (1.7-9.3); % Neutrophils 64.7 % (42.2-75.2); Absolute Eosinophils 0.1 10^3/uL (0-0.7); Absolute Lymphocytes 0.8 10^3/uL (1.2-3.4); Absolute Monocytes 0.4 10^3/uL (0.1-0.6); Absolute Neutrophils 2.4 10^3/uL (1.4-6.5); Hematocrit 26.8 % (37.0-47.0); Hemoglobin 7.9 g/dL (12.0-16.0); Mean Corp Hgb Conc. 29.5 g/dL (33.0-37.0); Mean Corpuscular Volume 91.5 fL (81.0-99.0); Mean Platelet Volume 10.6 fL (7.4-10.4); Nucleated Red Blood Cells % 0 %; Platelet Count 137 10^3/uL (130-400); Red Blood Cell Count 2.93 10^6/uL (4.20-5.40); Red Cell Dist. Width 17.1 % (11.5-14.5); White Blood Cell Count 3.7 10^3/uL (4.8-10.8)
[2024-02-09 08:49] LABS: Blood Urea Nitrogen 16 mg/dl (7-17); Calcium 8.7 mg/dl (8.4-10.2); Chloride 86 mmol/L (98-107); Estimated Creatinine Clearance 55 ml/min; Glucose 124 mg/dl (70-99); Sodium 136 mmol/L (135-145); eGFR > 60.00
--- NOTE | 2024-02-09 08:54 | W.PN.HOSP.TC ---
Addendum entered and electronically signed by Curt Valero MD 02/09/24 17:21:
I saw and evaluated the patient. I reviewed the resident�s note and agree with findings and plan as documented in the resident�s note.
Patient resting comfortably in chair. On oxygen 3 L per nasal cannula. Denies of having any ongoing dyspnea/productive cough/chest pain
Lung exam - no overt crackles/wheezing on exam.
# Acute on chronic hypoxic and hypercarbic respiratory failure
-Presumed transfusion associated circulatory overload and heart failure exacerbation
-Oxygen requirement has came down to Lasix 80 mg twice daily
-Maintain on 3 to oxygen through nasal cannula at discharge
-Patient discharged on oral Lasix 80 mg twice daily
# Acute kidney injury
-resolved, suspecting lasix use related
# Acute on chronic HFmrEF
-resolved and being discharged on oral lasix 80/bid
Discharge to SNF/rehab today
Original Note:
Today's Communication/Plan
-
- Continue PO Lasix 80mg BID
- DC to SNF ( [facility] [place])-
- FU with PCP and cardiology within 1 week
Assessment / Plan
Assessment / Plan
83-year-old female presents with acute on chronic hypoxic respiratory failure - Suspect most likely diagnosis is transfusion associated circulatory overload given improvement with diuresis, elevated BNP.
# Acute on chronic hypoxic and hypercarbic respiratory failure
- h/o COVID
- from [facility]-transfusion associated circulatory overload and acute CHF exacerbation
- cont PO lasix 80mg BID 80mg
- wean O2 for sats 88-92% (curently on 3L and O2 (94%)
- Hypercarbia improving
#Nausea
- PRN zofran
# AMAYA
- resolved
- prerenal likely due to fluid restriction vs effects of IV lasix
# Abdominal pain
- resolved
- Abdomen Xray clear
# Chronic iron deficiency anemia
- transfusion dependent. Suspect related to chronic GI blood loss, history of GAVE. Hemoglobin averages around 8.
# Acute on chronic heart failure midrange EF -
- Echocardiogram 01/29 shows LVEF 50 to 55%, dilated RV with reduced systolic function, mild to moderate MR, moderate to severe TR.
- cont PO Lasix 80 mg BID
# Hyponatremia
- resolved,136 mmol/L
# Permanent atrial fibrillation
- not on anticoagulation due to chronic anemia
- monitor closely
- continue carvedilol
# DM2 without hyperglycemia
- Hemoglobin A1c 5.1%, unreliable in the setting of chronic anemia.
- cont Use low resistance insulin scale.
- monitor accuchecks closely
- to start oral meds with pcp fu
# SSS-Permanent pacemaker
# CAD- h/o stent
#Hyperlipidemia- cont atorvastatin
#Hypothyroidism-cont levothyroxine
Limited DNR
Dispo to SNF -
Bowel regimen
Anticipated Discharge: Within 24 hours
Subjective/Interval History
-
Date of Service: February 09, 2024
Objective Data
-
Labs:
Laboratory Results
02/09/24
07:42
WBC 3.7 L
Hgb 7.9 L
Hct 26.8 L
Plt Count 137
Sodium 136
Potassium 4.0
Chloride 86 L
Carbon Dioxide Pending
BUN 16
Creatinine 0.7
Glucose 124 H
Calcium 8.7
Vital Signs:
Vital Signs
Temp Pulse Resp BP Pulse Ox
97.9 F 82 20 97/52 91
02/09/24 07:52 02/09/24 08:13 02/09/24 07:52 02/09/24 08:13 02/09/24 07:52
I&O
02/08/24 02/09/24 02/10/24
06:59 06:59 06:59
Intake Total 1080 / 1080 900 / 900
Balance 1080 / 1080 900 / 900
Review of Systems
-
History Source: Patient
Constitutional: Denies Fever
Respiratory: Denies Cough
Cardiac: Denies Chest Pain
Abdomen/GI: Denies Abdominal Pain
Musculoskeletal: Denies Joint Pain
Neuro: Denies Dizzy or Headache
Physical Exam
-
General: Well Nourished and No Apparent Distress
HEENT: Normocephalic and Atraumatic
Respiratory: Crackles
Cardiac: Irregular Rhythm
GI: Soft and Nontender
Skin: Warm and Dry
Neuro: Awake, Alert and Oriented
Psych: Calm
Data Reviewed
-
Labs: Labs Reviewed by me, Discussed with Physician and Discussed with Patient
[2024-02-09 08:59] LABS: Carbon Dioxide 45 mmol/L (22-30)
[2024-02-09 10:03] LABS: Iron 23 ug/dl (37-170)
[2024-02-09 10:12] LABS: Percent Saturation 7 % (20-50); Total Iron Binding Capacity 311 ug/dl (265-497)
[2024-02-09 10:26] VITALS: BP 114/72; PULSE 103; O2SAT 93
[2024-02-09 10:27] VITALS: BP 114/72
[2024-02-09 10:31] VITALS: BP 114/72; PULSE 82; O2SAT 92
[2024-02-09 11:10] LABS: Ferritin 29.6 ng/ml (11.1-264.0)
--- NOTE | 2024-02-09 11:10 | CM ---
Received [facility] insurance auth for 3 days 02/09/24 through to and including 02/11/24, NRD 02/11/24, Concurrent review fax # [phone], Reference ID # [id number] (pending reference # was [id number]). Usha Jaramillo is the concurrent nurse reviewer.
Patient has been medically cleared for discharge to [facility] for shelter and rehab services. Contact at [place] is Mandy @ [phone].
Transport being scheduled.
NURSE TO NURSE REPORT # [phone] (Confirmed #).
FAX # [phone]
Original Note:
[2024-02-09] MEDS: VITAMIN C 1000 MG PO (11:13)
[2024-02-09] MEDS: VITAMIN D3 (cholecalciferol) 50 MCG PO (11:13)
[2024-02-09] MEDS: LASIX 80 MG PO (11:13)
[2024-02-09] MEDS: VITAMIN E 400 UNITS PO (11:13)
[2024-02-09 11:30] LABS: Glucose - Point of Care 166 mg/dl (70-99)
[2024-02-09 11:32] VITALS: BP 108/67
[2024-02-09] MEDS: NOVOLOG FLEXPEN-LOW RESISTANCE 1 UNITS SC (12:06)
[2024-02-09] MEDS: VITAMIN B-12 PO (12:37)
--- NOTE | 2024-02-09 12:52 | PTCARENOTE ---
Called [facility] and spoke with Josefina. 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 Vitals taken 1100
== END 2024-02-09 13:29 | DRG 640 ==
LOC: 2 NORTH 16:58
PROVIDERS: Emergency Medicine; Hospitalist; Internal Medicine Critical Care Medicine; Student in an Organized Health Care Education/Training Program; ADMITTING PHYSICIAN Hospitalist; ATTENDING PHYSICIAN Hospitalist; CONSULT PHYSICIAN Internal Medicine Cardiovascular Disease; CONSULT PHYSICIAN Internal Medicine Critical Care Medicine; CONSULT PHYSICIAN Internal Medicine Hematology & Oncology; EMERGENCY PHYSICIAN Emergency Medicine; FAMILY PHYSICIAN Nurse Practitioner Family
DX: E87.71 Transfusion associated circulatory overload (principal); I50.23 Acute on chronic systolic (congestive) heart failure; J96.21 Acute and chronic respiratory failure with hypoxia; K31.811 Angiodysplasia of stomach and duodenum with bleeding; J96.22 Acute and chronic respiratory failure with hypercapnia; J95.84 Transfusion-related acute lung injury (TRALI); I48.21 Permanent atrial fibrillation; D68.00 Von Willebrand disease, unspecified; J84.9 Interstitial pulmonary disease, unspecified; J90 Pleural effusion, not elsewhere classified; N17.9 Acute kidney failure, unspecified; E87.4 Mixed disorder of acid-base balance; E87.1 Hypo-osmolality and hyponatremia; D50.0 Iron deficiency anemia secondary to blood loss (chronic); Y84.8 Other medical procedures as the cause of abnormal reaction of the patient, or of later complication, without mention of misadventure at the time of the procedure; Y92.531 Health care provider office as the place of occurrence of the external cause; E03.9 Hypothyroidism, unspecified; I25.10 Atherosclerotic heart disease of native coronary artery without angina pectoris; E78.00 Pure hypercholesterolemia, unspecified; E78.5 Hyperlipidemia, unspecified; E53.8 Deficiency of other specified B group vitamins; E11.42 Type 2 diabetes mellitus with diabetic polyneuropathy; E11.40 Type 2 diabetes mellitus with diabetic neuropathy, unspecified; I08.1 Rheumatic disorders of both mitral and tricuspid valves; R10.9 Unspecified abdominal pain; E87.6 Hypokalemia; I11.0 Hypertensive heart disease with heart failure; Z66 Do not resuscitate; Z87.01 Personal history of pneumonia (recurrent); Z87.440 Personal history of urinary (tract) infections; Z87.19 Personal history of other diseases of the digestive system; Z87.891 Personal history of nicotine dependence; Z95.5 Presence of coronary angioplasty implant and graft; Z88.8 Allergy status to other drugs, medicaments and biological substances; Z91.041 Radiographic dye allergy status; Z79.890 Hormone replacement therapy; Z99.81 Dependence on supplemental oxygen; Z85.820 Personal history of malignant melanoma of skin; Z87.11 Personal history of peptic ulcer disease; Z95.0 Presence of cardiac pacemaker; Z86.74 Personal history of sudden cardiac arrest; Z75.1 Person awaiting admission to adequate facility elsewhere
CPT/HCPCS: 71045; 71046; 74018; 80048; 80053; 82728; 82805; 82962; 83010; 83036; 83540; 83550; 83615; 83735; 83880; 85025; 85045; 85379; 85610; 85730; 86078; 86850; 86880; 86900; 86901; 93005; 93306; 96374; 96375; 97116; 97163; 97166; 97530; 97535; 99285

== ENCOUNTER 2024-03-25 09:49 | Outpatient (RCR) | payer MEDICARE, SELFPAY ==
[2024-03-25 10:49] VITALS: BP 136/79
[2024-03-25 11:06] VITALS: BP 128/68
[2024-03-25 13:46] VITALS: BP 108/53
[2024-03-25] MEDS: LASIX 20 MG IV (13:46)
== END 2024-04-03 23:59 | disposition home or self-care (01) ==
LOC: OID 09:49
PROVIDERS: ATTENDING PHYSICIAN Internal Medicine Hematology & Oncology; FAMILY PHYSICIAN Nurse Practitioner Family
DX: D50.0 Iron deficiency anemia secondary to blood loss (chronic) (principal); D50.9 Iron deficiency anemia, unspecified; T45.4X5A Adverse effect of iron and its compounds, initial encounter; Y93.89 Activity, other specified; Z79.01 Long term (current) use of anticoagulants; Y92.89 Other specified places as the place of occurrence of the external cause; K31.811 Angiodysplasia of stomach and duodenum with bleeding; D59.0 Drug-induced autoimmune hemolytic anemia
CPT/HCPCS: 36415; 36430; 86850; 86900; 86901; 86920; 86922; 96374; P9016